=== PATIENT | male | born 1985 | race American Indian/Alaskan Native ===

== ENCOUNTER 2016-11-18 11:47 | Inpatient (IN) | payer OTHER ==
[2016-11-18] MEDS ORDERED: CATAPRES ONE (12:34)
--- NOTE | 2016-11-18 12:41 | Emergency Department Report ---
HPI - General Chief Complaint: Altered Mental Status Time Seen by Provider: 11/18/16 12:25 - HPI HPI: Room 23 The patient is 31-year-old male presenting with a chief complaint of altered mental status. Reportedly the patient's mother called EMS because the patient has been altered since last night. The patient's mother did not accompany him to the ED. The patient appears confused and responds to most questions with "I think.... I think...." Or "no think....." The patient does follow commands easily and is only oriented to his name. The patient does not know the year, the place or why he came to the emergency department. Patient denies pain Location: Mental state Duration: Since last night Quality: Altered Severity: Moderate Modifying factors: [see above] Context: [see above] Mode of transportation: EMS ED Past Medical Hx - Past Medical History Hx Hypertension: Yes Hx Asthma: Yes - Surgical History Past Surgical History?: No Additional Surgical History: denies - Family History Family history: no significant - Social History Smoking Status: Never Smoker Substance Use Type: None (denies illicit drug use) - Medications Home Medications: Home Medications Medication Instructions Recorded Confirmed Last Taken Type Omeprazole [PriLOSEC] 40 mg PO DAILY #20 capsule. 12/23/13 Unknown Rx ED Review of Systems ROS: Stated complaint: ALTERED MENTAL STATUS Other details as noted in HPI Comment: All other systems reviewed and negative Constitutional: denies: chills, fever Eyes: denies: eye pain, eye discharge, vision change ENT: denies: ear pain, throat pain Respiratory: denies: cough, shortness of breath, wheezing Cardiovascular: denies: chest pain, palpitations Endocrine: no symptoms reported Gastrointestinal: denies: abdominal pain, nausea, diarrhea Genitourinary: denies: urgency, dysuria Musculoskeletal: denies: back pain, joint swelling, arthralgia Skin: denies: rash, lesions Neurological: confusion. denies: headache Psychiatric: denies: anxiety, depression Hematological/Lymphatic: denies: easy bleeding, easy bruising Physical Exam - Physical Exam Vital Signs: Vital Signs 11/18/16 11/18/16 11:52 12:25 Temperature 98.6 F Pulse Rate 105 H 105 H Respiratory 20 16 Rate Blood Pressure 161/104 [Right] O2 Sat by Pulse 97 100 Oximetry Physical Exam: GENERAL: The patient is well-developed well-nourished male lying on stretcher not appearing to be in acute distress but appeared confused. [] HEENT: Normocephalic. Atraumatic. Extraocular motions are intact. Patient has moist mucous membranes. NECK: Supple. Trachea midline CHEST/LUNGS: Clear to auscultation. There is no respiratory distress noted. HEART/CARDIOVASCULAR: Regular. There is no tachycardia. There is no gallop rub or murmur. ABDOMEN: Abdomen is soft, nontender. Patient has normal bowel sounds. There is no abdominal distention. SKIN: There is no rash. There is no edema. There is no diaphoresis. NEURO: The patient is awake and alert but only oriented 1 (self). The patient is cooperative. The patient has no focal neurologic deficits. The patient has normal speech. Cranial nerves II through XII grossly intact, no drift. Moves all extremities well MUSCULOSKELETAL: There is no evidence of acute injury. ED Course Vital Signs 11/18/16 11/18/16 11:52 12:25 Temperature 98.6 F Pulse Rate 105 H 105 H Respiratory 20 16 Rate Blood Pressure 161/104 [Right] O2 Sat by Pulse 97 100 Oximetry - Lumbar Puncture Consent Obtained: verbal consent, emergent situation Time Out Performed: Yes Indication for Procedure: fever work up, change in mental status Patient Position: left lateral decubitus Skin Prep: Povidone-Iodine 1% Local Anesthetic Used: Lidocaine 1% Amount of anesthesia used (mls): 3 Spinal Needle Gauge: 20G Spinal Needle Length: 3.5in Interspace Used: L3-L4 Complications: unable to obtain CSF Patient Tolerated Procedure: no complications ED Medical Decision Making - Lab Data Result diagrams: 11/18/16 12:27 11/18/16 12:27 Laboratory Tests 11/18/16 11/18/16 11/18/16 12:21 12:27 12:27 WBC 21.6 H RBC 6.13 H Hgb 16.3 H Hct 47.3 H MCV 77 L MCH 27 L MCHC 35 H RDW 15.4 H Plt Count 191 Add Manual Diff Complete Total Counted 100 Seg Neutrophils % Digital Manager Seg Neuts % (Manual) 83.0 H Band Neutrophils % 2.0 Lymphocytes % (Manual) 11.0 L Reactive Lymphs % (Man) 0 Monocytes % (Manual) 4.0 Eosinophils % (Manual) 0 Basophils % (Manual) 0 Metamyelocytes % 0 Myelocytes % 0 Promyelocytes % 0 Blast Cells % 0 Nucleated RBC % Not Reportable Seg Neutrophils # Man 17.9 H Band Neutrophils # 0.4 Lymphocytes # (Manual) 2.4 Abs React Lymphs (Man) 0.0 Monocytes # (Manual) 0.9 H Eosinophils # (Manual) 0.0 Basophils # (Manual) 0.0 Metamyelocytes # 0.0 Myelocytes # 0.0 Promyelocytes # 0.0 Blast Cells # 0.0 WBC Morphology Not Reportable Hypersegmented Neuts Not Reportable Hyposegmented Neuts Not Reportable Hypogranular Neuts Not Reportable Smudge Cells Not Reportable Toxic Granulation Not Reportable Toxic Vacuolation Not Reportable Dohle Bodies Not Reportable Pelger-Huet Anomaly Not Reportable Josseline Rods Not Reportable Platelet Estimate Not Reportable Clumped Platelets Not Reportable Plt Clumps, EDTA Not Reportable Large Platelets Not Reportable Giant Platelets Not Reportable Platelet Satelliting Not Reportable Plt Morphology Comment Not Reportable RBC Morphology Not Reportable Dimorphic RBCs Not Reportable Polychromasia Not Reportable Hypochromasia Not Reportable Poikilocytosis Not Reportable Anisocytosis Few Microcytosis Not Reportable Macrocytosis Not Reportable Spherocytes Not Reportable Pappenheimer Bodies Not Reportable Sickle Cells Not Reportable Target Cells Not Reportable Tear Drop Cells Not Reportable Ovalocytes Not Reportable Helmet Cells Not Reportable Ibarra-Gananda Bodies Not Reportable Essie Rings Not Reportable Neel Cells Not Reportable Bite Cells Not Reportable Crenated Cell Not Reportable Elliptocytes Not Reportable Acanthocytes (Spur) Not Reportable Rouleaux Not Reportable Hemoglobin C Crystals Not Reportable Schistocytes Not Reportable Malaria parasites Not Reportable Javier Bodies Not Reportable Hem Pathologist Commnt No Sodium 133 L Potassium 3.3 L Chloride 92.2 L Carbon Dioxide 22 Anion Gap 22 BUN 12 Creatinine 1.3 Estimated GFR > 60 BUN/Creatinine Ratio 9.23 Glucose 156 H POC Glucose 128 H Lactic Acid Calcium 9.4 Magnesium 1.3 L Total Bilirubin 1.9 H AST 38 ALT 48 Alkaline Phosphatase 79 Total Creatine Kinase CK-MB (CK-2) CK-MB (CK-2) Rel Index Troponin T Total Protein 8.3 H Albumin 4.0 Albumin/Globulin Ratio 0.9 TSH Free T4 Urine Color Urine Turbidity Urine pH Ur Specific [place] Urine Protein Urine Glucose (UA) Urine Ketones Urine Blood Urine Nitrite Urine Bilirubin Urine Ictotest Urine Urobilinogen Ur Leukocyte Esterase Urine WBC (Auto) Urine RBC (Auto) Urine Bacteria (Auto) Urine Opiates Screen Urine Methadone Screen Acetaminophen Ur Barbiturates Screen Ur Phencyclidine Scrn Ur Amphetamines Screen U Benzodiazepines Scrn Urine Cocaine Screen U Marijuana (THC) Screen Drugs of Abuse Note Plasma/Serum Alcohol 11/18/16 11/18/16 11/18/16 12:27 12:27 12:32 WBC RBC Hgb Hct MCV MCH MCHC RDW Plt Count Add Manual Diff Total Counted Seg Neutrophils % Seg Neuts % (Manual) Band Neutrophils % Lymphocytes % (Manual) Reactive Lymphs % (Man) Monocytes % (Manual) Eosinophils % (Manual) Basophils % (Manual) Metamyelocytes % Myelocytes % Promyelocytes % Blast Cells % Nucleated RBC % Seg Neutrophils # Man Band Neutrophils # Lymphocytes # (Manual) Abs React Lymphs (Man) Monocytes # (Manual) Eosinophils # (Manual) Basophils # (Manual) Metamyelocytes # Myelocytes # Promyelocytes # Blast Cells # WBC Morphology Hypersegmented Neuts Hyposegmented Neuts Hypogranular Neuts Smudge Cells Toxic Granulation Toxic Vacuolation Dohle Bodies Pelger-Huet Anomaly Josseline Rods Platelet Estimate Clumped Platelets Plt Clumps, EDTA Large Platelets Giant Platelets Platelet Satelliting Plt Morphology Comment RBC Morphology Dimorphic RBCs Polychromasia Hypochromasia Poikilocytosis Anisocytosis Microcytosis Macrocytosis Spherocytes Pappenheimer Bodies Sickle Cells Target Cells Tear Drop Cells Ovalocytes Helmet Cells Ibarra-Gananda Bodies Essie Rings Wheeling Cells Bite Cells Crenated Cell Elliptocytes Acanthocytes (Spur) Rouleaux Hemoglobin C Crystals Schistocytes Malaria parasites Javier Bodies Hem Pathologist Commnt Sodium Potassium Chloride Carbon Dioxide Anion Gap BUN Creatinine Estimated GFR BUN/Creatinine Ratio Glucose POC Glucose Lactic Acid 2.3 H* Calcium Magnesium Total Bilirubin AST ALT Alkaline Phosphatase Total Creatine Kinase CK-MB (CK-2) CK-MB (CK-2) Rel Index Troponin T Total Protein Albumin Albumin/Globulin Ratio TSH Free T4 Urine Color Urine Turbidity Urine pH Ur Specific [place] Urine Protein Urine Glucose (UA) Urine Ketones Urine Blood Urine Nitrite Urine Bilirubin Urine Ictotest Urine Urobilinogen Ur Leukocyte Esterase Urine WBC (Auto) Urine RBC (Auto) Urine Bacteria (Auto) Urine Opiates Screen Urine Methadone Screen Acetaminophen < 15.0 Ur Barbiturates Screen Ur Phencyclidine Scrn Ur Amphetamines Screen U Benzodiazepines Scrn Urine Cocaine Screen U Marijuana (THC) Screen Drugs of Abuse Note Plasma/Serum Alcohol < 0.01 11/18/16 11/18/16 11/18/16 12:35 12:35 14:32 WBC RBC Hgb Hct MCV MCH MCHC RDW Plt Count Add Manual Diff Total Counted Seg Neutrophils % Seg Neuts % (Manual) Band Neutrophils % Lymphocytes % (Manual) Reactive Lymphs % (Man) Monocytes % (Manual) Eosinophils % (Manual) Basophils % (Manual) Metamyelocytes % Myelocytes % Promyelocytes % Blast Cells % Nucleated RBC % Seg Neutrophils # Man Band Neutrophils # Lymphocytes # (Manual) Abs React Lymphs (Man) Monocytes # (Manual) Eosinophils # (Manual) Basophils # (Manual) Metamyelocytes # Myelocytes # Promyelocytes # Blast Cells # WBC Morphology Hypersegmented Neuts Hyposegmented Neuts Hypogranular Neuts Smudge Cells Toxic Granulation Toxic Vacuolation Dohle Bodies Pelger-Huet Anomaly Josseline Rods Platelet Estimate Clumped Platelets Plt Clumps, EDTA Large Platelets Giant Platelets Platelet Satelliting Plt Morphology Comment RBC Morphology Dimorphic RBCs Polychromasia Hypochromasia Poikilocytosis Anisocytosis Microcytosis Macrocytosis Spherocytes Pappenheimer Bodies Sickle Cells Target Cells Tear Drop Cells Ovalocytes Helmet Cells Ibarra-Gananda Bodies Essie Rings Neel Cells Bite Cells Crenated Cell Elliptocytes Acanthocytes (Spur) Rouleaux Hemoglobin C Crystals Schistocytes Malaria parasites Javier Bodies Hem Pathologist Commnt Sodium Potassium Chloride Carbon Dioxide Anion Gap BUN Creatinine Estimated GFR BUN/Creatinine Ratio Glucose POC Glucose Lactic Acid Calcium Magnesium Total Bilirubin AST ALT Alkaline Phosphatase Total Creatine Kinase 317 H CK-MB (CK-2) 1.0 CK-MB (CK-2) Rel Index 0.3 Troponin T < 0.010 Total Protein Albumin Albumin/Globulin Ratio TSH 2.470 Free T4 1.29 Urine Color Yellow Urine Turbidity Clear Urine pH 6.0 Ur Specific [place] 1.020 Urine Protein 100 mg/dl Urine Glucose (UA) Neg Urine Ketones 80 Urine Blood Mod Urine Nitrite Neg Urine Bilirubin Neg Urine Ictotest Not Reportable Urine Urobilinogen < 2.0 Ur Leukocyte Esterase Sm Urine WBC (Auto) 10.0 H Urine RBC (Auto) 12.0 Urine Bacteria (Auto) 2+ Urine Opiates Screen Urine Methadone Screen Acetaminophen Ur Barbiturates Screen Ur Phencyclidine Scrn Ur Amphetamines Screen U Benzodiazepines Scrn Urine Cocaine Screen U Marijuana (THC) Screen Drugs of Abuse Note Plasma/Serum Alcohol 11/18/16 14:32 WBC RBC Hgb Hct MCV MCH MCHC RDW Plt Count Add Manual Diff Total Counted Seg Neutrophils % Seg Neuts % (Manual) Band Neutrophils % Lymphocytes % (Manual) Reactive Lymphs % (Man) Monocytes % (Manual) Eosinophils % (Manual) Basophils % (Manual) Metamyelocytes % Myelocytes % Promyelocytes % Blast Cells % Nucleated RBC % Seg Neutrophils # Man Band Neutrophils # Lymphocytes # (Manual) Abs React Lymphs (Man) Monocytes # (Manual) Eosinophils # (Manual) Basophils # (Manual) Metamyelocytes # Myelocytes # Promyelocytes # Blast Cells # WBC Morphology Hypersegmented Neuts Hyposegmented Neuts Hypogranular Neuts Smudge Cells Toxic Granulation Toxic Vacuolation Dohle Bodies Pelger-Huet Anomaly Josseline Rods Platelet Estimate Clumped Platelets Plt Clumps, EDTA Large Platelets Giant Platelets Platelet Satelliting Plt Morphology Comment RBC Morphology Dimorphic RBCs Polychromasia Hypochromasia Poikilocytosis Anisocytosis Microcytosis Macrocytosis Spherocytes Pappenheimer Bodies Sickle Cells Target Cells Tear Drop Cells Ovalocytes Helmet Cells Ibarra-Gananda Bodies Essie Rings Wheeling Cells Bite Cells Crenated Cell Elliptocytes Acanthocytes (Spur) Rouleaux Hemoglobin C Crystals Schistocytes Malaria parasites Javier Bodies Hem Pathologist Commnt Sodium Potassium Chloride Carbon Dioxide Anion Gap BUN Creatinine Estimated GFR BUN/Creatinine Ratio Glucose POC Glucose Lactic Acid Calcium Magnesium Total Bilirubin AST ALT Alkaline Phosphatase Total Creatine Kinase CK-MB (CK-2) CK-MB (CK-2) Rel Index Troponin T Total Protein Albumin Albumin/Globulin Ratio TSH Free T4 Urine Color Urine Turbidity Urine pH Ur Specific [place] Urine Protein Urine Glucose (UA) Urine Ketones Urine Blood Urine Nitrite Urine Bilirubin Urine Ictotest Urine Urobilinogen Ur Leukocyte Esterase Urine WBC (Auto) Urine RBC (Auto) Urine Bacteria (Auto) Urine Opiates Screen Presumptive negative Urine Methadone Screen Presumptive negative Acetaminophen Ur Barbiturates Screen Presumptive negative Ur Phencyclidine Scrn Presumptive negative Ur Amphetamines Screen Presumptive negative U Benzodiazepines Scrn Presumptive negative Urine Cocaine Screen Presumptive negative U Marijuana (THC) Screen Presumptive negative Drugs of Abuse Note Disclamer Plasma/Serum Alcohol - EKG Data -: EKG Interpreted by Me EKG shows normal: sinus rhythm Rate: tachycardia (112 bpm) - EKG Data When compared to previous EKG there are: previous EKG unavailable Interpretation: nonspecific ST-T wave sheila - Differential Diagnosis altered mental status, hypertensive urgency, substance abuse Critical care attestation.: If time is entered above; I have spent that time in minutes in the direct care of this critically ill patient, excluding procedure time. ED Disposition Clinical Impression: Altered mental status, Fever, Leukocytosis Disposition: OP ADMITTED IP TO THIS HOSP Is pt being admited?: Yes Does the pt Need Aspirin: Yes Condition: Serious Referrals: PRIMARY CARE, [Primary Care Provider] - 3-5 Days Time of Disposition: 15:45 (Dr Odonnell notified)
[2016-11-18 12:46] LABS: Hematocrit 47.3 % (35.5-45.6); Hemoglobin 16.3 gm/dl (11.8-15.2); Mean Corpuscular HGB Conc 35 % (32-34); Mean Corpuscular Hemoglobin 27 pg (28-32); Mean Corpuscular Volume 77 fl (84-94); Platelet Count 191 K/mm3 (140-440); Red Blood Count 6.13 M/mm3 (3.65-5.03); Red Cell Distribution Width 15.4 % (13.2-15.2)
[2016-11-18 12:48] LABS: White Blood Count 21.6 K/mm3 (4.5-11.0)
--- NOTE | 2016-11-18 12:49 | Admit Criteria Form ---
Admission Criteria Documentation: MENTAL STATUS CHANGE Clinical Indications for Inpatient Care (Place 'X' for any and all applicable criteria): Ongoing inpatient care may be needed for 1 or more of the following(1)(2)(3)(5)( 6): [X ]I. Suspected serious etiology (eg, medical disorder, TIP LENGTH CHECKER event) of altered mental status [ ]II. Danger to self or others not manageable at lower level of care [ ]III. Grave disability (eg, inability to perform self care necessary at lower level of care) [ ]IV. Agitation or inappropriate behavior interfering with care for primary condition (eg, attempting to discontinue lines or drains prematurely, unable to cooperate with respiratory care) [ ]V. Delirium [A] [D][E] as described by 1 or more of the following(26): [ ]a) Delirium due to alcohol or sedative [F] withdrawal [ ]b) Delirium of uncertain etiology that has not responded to appropriate empiric treatment [ ]c) Delirium that prevents performance of a life-sustaining function (eg, feeding or hydrating oneself) [ ]. General contraindications and/or Inappropriate clinical situations for Observational Care in patients with Mental Status Change, when ANY ONE of the following is required: [ ]a) Prediction of prolongation of LOS based on ANY ONE of the following may be considered as a contraindication for observational care 2, 3, 4, 5, 6, 7, 8, 9, 10, 11 [ ]i) Age > 65 yrs. [ ]ii) Patient arriving by ambulance [ ]iii) Patient with high acuity [ ]iv) Patient requiring vital sign monitoring [ ]v) Patient on IV medication [ ]b) Systolic blood pressures greater than or equal to 180mmHg 3, 12 [ ]c) Patient with altered mental status including delirium and other alteration of consciousness, (3) [ ]d) Patient whose discharge disposition will be to a nursing home home or rehabilitation home should not be managed in Emergency Department Observation Unit. CMS rule requires 3 days hospital stay before such placement.3,13 [ ]e) Patient with failure to thrive due to broad array of etiologies 3,16,17 [ ]f) Inability to ambulate 3,14 Extended stay beyond goal length of stay for the primary condition may be needed until ALL of the following are present(3)(5): [ ]a) Underlying medical etiology of mental status change is absent, or has been established and adequately treated [ ]b) Danger to self or others is absent or manageable at lower level of care. [ ]c) Behavior crisis management, including physical or chemical restraints, is not required or available at lower level of car [ ]d) Substance or alcohol withdrawal is absent or manageable at lower level of care. [ ]e) Behavioral symptoms (eg, agitation, somnolence, inappropriate behavior) are absent, or are manageable at lower level of care. The original [facility] [employer] content created by [facility] [employer] has been revised. The portions of the content which have been revised are identified through the use of italic text or in bold, and [facility] has neither reviewed nor approved the modified material. All other unmodified content is copyright [facility] [employer]. Please see references footnoted in the original [facility] edition 2016 Admission Criteria Met: Yes
[2016-11-18 13:03] LABS: Alanine Aminotransferase 48 units/L (7-56); Albumin/Globulin Ratio 0.9 %; Alkaline Phosphatase 79 units/L (35-129); Anion Gap 22 mmol/L; BUN/Creatinine Ratio 9.23; Bilirubin,Total 1.9 mg/dL (0.1-1.2); Blood Urea Nitrogen 12 mg/dL (9-20); Calcium 9.4 mg/dL (8.4-10.2); Carbon Dioxide 22 mmol/L (22-30); Chloride 92.2 mmol/L (98-107); Glucose 156 mg/dL (75-100); Magnesium 1.3 mg/dL (1.7-2.3); Potassium 3.3 mmol/L (3.6-5.0); Sodium 133 mmol/L (137-145); Total Protein 8.3 g/dL (6.3-8.2)
[2016-11-18 13:03] LABS: Creatine Kinase 317 units/L (55-170)
[2016-11-18] MEDS ORDERED: MAGNESIUM SULFATE 2GM/50ML 2 GM/50 ML BAG IV ONE (13:17)
[2016-11-18 13:48] LABS: Blastocytes % (Manual) 0 %
[2016-11-18 13:49] LABS: Basophils % (Manual) 0 % (0.0-1.8); Eosinophils % (Manual) 0 % (0.0-4.3)
[2016-11-18 13:50] LABS: Anisocytosis Few; Diff Status Complete
--- NOTE | 2016-11-18 13:50 | Cat Scan Report ---
CT HEAD WITHOUT CONTRAST: HISTORY: Altered mental status. Serial contiguous axial images were obtained through the cranium. Intravenous contrast material was not administered. The ventricles are normal in size and appearance. There is no mass effect or midline shift. No areas of abnormally increased or decreased attenuation are seen. No mass lesion is seen. The mastoid air cells and visualized portions of the sinuses are normal. IMPRESSION: Cranial CT scan within normal limits.
[2016-11-18] MEDS ORDERED: NACL 0.9% 1000 ML 1,000 ML IV ONE (14:49)
[2016-11-18] MEDS ORDERED: ROCEPHIN/NS 2 GM/100 ML 2 GM/100 ML BAG IV ONE (14:49)
[2016-11-18] MEDS ORDERED: VERSED IV PRN (14:53)
[2016-11-18 15:00] LABS: Bilirubin,Urine NEG (Negative); Blood,Urine MOD (Negative); Ketones,Urine 80 mg/dL (Negative); Leukocyte Esterase,Urine SM (Negative); Nitrite,Urine NEG (Negative); Urobilinogen,Urine < 2.0 mg/dL (<2.0)
[2016-11-18 15:04] LABS: Urine Drugs of Abuse Note Disclamer
[2016-11-18 15:17] LABS: Bacteria,Urine 2+ /HPF (Negative)
[2016-11-18] MEDS ORDERED: TYLENOL PO ONE (15:42)
--- NOTE | 2016-11-18 23:11 | Event Note ---
Date: 11/18/16 See history and physical in reports. Altered mental status Rule out meningitis ID consult requested
[2016-11-18] MEDS ORDERED: TYLENOL PO PRN (23:12)
--- NOTE | 2016-11-18 23:48 | History and Physical Report ---
CHIEF COMPLAINT: Altered mental status. HISTORY OF PRESENT ILLNESS: A 31-year-old -[place] male doing well until last night, brought in by EMS for severe altered mental status. The patient states yes and I think, but does not give any proper answer. Alert and looking at me and making eye contact, but states yes and trying to answer questions, but not able to answer questions. PAST MEDICAL HISTORY: Significant for hypertension and asthma. PAST SURGICAL HISTORY: None. FAMILY HISTORY: Nothing significant. SOCIAL HISTORY: Does not use any illicit drugs. REVIEW OF SYSTEMS: Significant for fever and altered mental status, alert but not able to answer questions, trying to answer questions. No neck stiffness. Otherwise, 14-point review of systems is otherwise negative. PHYSICAL EXAMINATION: GENERAL: Young male, cooperative during examination. VITAL SIGNS: Temperature was 98, later 101 and 102.1. Pulse is , blood pressure is 141/80, respiratory rate is 21. HEENT: Unremarkable. Pupils equal and reactive. NECK: Supple. No signs of meningitis. LUNGS: Clear to auscultation and percussion. Good air entry. CARDIOVASCULAR: S1, S2 heard. No gallop, no murmur, no rub. Apical impulse in left fifth intercostal space in midclavicular line. ABDOMEN: Soft and benign. No hepatosplenomegaly. No guarding, no rigidity. Hernial orifices are normal. EXTREMITIES: Good pedal pulses. No pedal edema. LABORATORY DATA: White count is 21,600, H and H is 16.3 and 47.3, platelet count is 191,000. Sodium is 133, potassium is 3.3, chloride is 92.2, glucose is 156. Lactic acid is 3.3. Magnesium is 1.3. Total bilirubin is 1.9, total creatinine kinase is , CK-MB is 1.0. Total protein is 8.3. Urine shows ketones of 80, urine WBCs of 10. ASSESSMENT AND PLAN: 1. Altered mental status, probably secondary to meningitis. 2. SIRS syndrome consistent with high lactic acid and high white count with leukocytosis. The patient started on IV Rocephin. ID consult requested, Dr. Karen Barone, his telephone number is [phone] or [phone]. Phone call was not put in because of the time of 11 p.m. ID consult to be called in the morning by the regular hospitalist team. The patient isolated. 3. Meningitis, high possibility. LP was attempted, but could not be done, was unsuccessful. So, no CSF fluid. 4. Hypokalemia, supplemented. 5. Deep venous thrombosis prophylaxis, Lovenox 40 mg subcutaneous daily. JOB# [id number] NIKOLAY/NTS
[2016-11-19] MEDS: ZOSYN/NS 4.5GM/100ML 4.5 GM/100 ML VIAL IV SCH ×3 (00:32→22:32)
[2016-11-19] MEDS: KCL 10MEQ/100ML 10 MEQ/100 ML BAG IV SCH ×5 (00:40→22:03)
[2016-11-19] MEDS: D5NS 1,000 ML IV SCH ×2 (00:41→22:04)
[2016-11-19] MEDS ORDERED: VANCOMYCIN VIAL IV ONE (08:57)
[2016-11-19] MEDS ORDERED: VANCOMYCIN PHARMACY TO DOSE IV SCH (09:00)
[2016-11-19 09:52] LABS: Anion Gap 21 mmol/L; BUN/Creatinine Ratio 8.33; Blood Urea Nitrogen 10 mg/dL (9-20); Calcium 8.8 mg/dL (8.4-10.2); Carbon Dioxide 20 mmol/L (22-30); Chloride 97.9 mmol/L (98-107); Glucose 213 mg/dL (75-100); Potassium 3.2 mmol/L (3.6-5.0); Sodium 136 mmol/L (137-145)
[2016-11-19] MEDS ORDERED: ROCEPHIN/NS 2 GM/100 ML 2 GM/100 ML BAG IV SCH (10:00)
[2016-11-19 10:05] LABS: Basophils % (Auto) 0.2 % (0.0-1.8); Hematocrit 42.4 % (35.5-45.6); Hemoglobin 14.6 gm/dl (11.8-15.2); Mean Corpuscular HGB Conc 34 % (32-34); Mean Corpuscular Hemoglobin 27 pg (28-32); Mean Corpuscular Volume 78 fl (84-94); Platelet Count 171 K/mm3 (140-440); Red Blood Count 5.45 M/mm3 (3.65-5.03); Red Cell Distribution Width 15.3 % (13.2-15.2); White Blood Count 17.1 K/mm3 (4.5-11.0)
[2016-11-19] MEDS ORDERED: VANCOMYCIN VIAL 2,000 MG in NACL 0.9% 500 ML 500 ML IV ONE ×2 (11:00→21:00)
[2016-11-19] MEDS ORDERED: VANCOMYCIN VIAL 2,000 MG in NACL 0.9% 500 ML 500 ML IV SCH (11:00)
--- NOTE | 2016-11-19 16:29 | Progress Note ---
Assessment and Plan Assessment and plan: Altered mental status likely due to meningitis SIRS consistent with high reticulocyte count, high WBC count, and fever Possible bacterial meningitis Hypokalemia DVT prophylaxis - cont IV abx to cover bacterial meningitis - follow ID recommendation - LP pending, replace electrolytes as needed - will get medical records from [place] - DVT Px with lovenox History Interval history: Patient seen and examined. Medical records and medication list reviewed. No acute event overnight noted by the RN. Patient denies any chest pain or difficulty breathing. Patient is tolerating diet. he still appears to be confused, according to his mother whom I discussed by phone he was normally functional about 4 days ago. he had similar episode few years ago at [facility], will get medical records from there. Discussed plan of care at bedside with patient. Hospitalist Physical - Physical exam Narrative exam: GENERAL: obese AAM lying on bed appeared to be in no discomfort. HEENT: Normocephalic. Atraumatic. No conjunctival congestion or icterus. Patient has dry mucous membranes. NECK: Supple. Trachea midline. CHEST/LUNGS: Clear to auscultated bilaterally, breathing nonlabored. No wheezes crackles or rhonchi. HEART/CARDIOVASCULAR: Regular in rate and rhythm. S1 and S2 positive. ABDOMEN: Abdomen is soft, nontender. Patient has normal bowel sounds. SKIN: There is no rash. Warm and dry. NEURO: No focal motor deficit. Follows command. appears confused. MUSCULOSKELETAL: No joint effusion or tenderness. EXTRIMITY: No edema, no cyanosis or clubbing. PSYCH: No agitation. - Constitutional Vitals: Temp Pulse Resp BP Pulse Ox 98 F 111 H 20 138/92 97 11/19/16 11:00 11/19/16 11:00 11/19/16 11:00 11/19/16 11:00 11/19/16 11:00 Results - Labs CBC & Chem 7: 11/19/16 09:22 11/19/16 09:22 Labs: Laboratory Last Values WBC 17.1 K/mm3 (4.5-11.0) H 11/19/16 09:22 RBC 5.45 M/mm3 (3.65-5.03) H 11/19/16 09:22 Hgb 14.6 gm/dl (11.8-15.2) 11/19/16 09:22 Hct 42.4 % (35.5-45.6) 11/19/16 09:22 MCV 78 fl (84-94) L 11/19/16 09:22 MCH 27 pg (28-32) L 11/19/16 09:22 MCHC 34 % (32-34) 11/19/16 09:22 RDW 15.3 % (13.2-15.2) H 11/19/16 09:22 Plt Count 171 K/mm3 (140-440) 11/19/16 09:22 Lymph % (Auto) 5.5 % (13.4-35.0) L 11/19/16 09:22 [place] % (Auto) 5.1 % (0.0-7.3) 11/19/16 09:22 Eos % (Auto) 0.0 % (0.0-4.3) 11/19/16 09:22 Baso % (Auto) 0.2 % (0.0-1.8) 11/19/16 09:22 Lymph # 0.9 K/mm3 (1.2-5.4) L 11/19/16 09:22 [place] # 0.9 K/mm3 (0.0-0.8) H 11/19/16 09:22 Eos # 0.0 K/mm3 (0.0-0.4) 11/19/16 09:22 Baso # 0.0 K/mm3 (0.0-0.1) 11/19/16 09:22 Add Manual Diff Complete 11/18/16 12:27 Total Counted 100 11/18/16 12:27 Seg Neutrophils % 89.2 % (40.0-70.0) H 11/19/16 09:22 Seg Neuts % (Manual) 83.0 % (40.0-70.0) H 11/18/16 12:27 Band Neutrophils % 2.0 % 11/18/16 12:27 Lymphocytes % (Manual) 11.0 % (13.4-35.0) L 11/18/16 12:27 Reactive Lymphs % (Man) 0 % 11/18/16 12:27 Monocytes % (Manual) 4.0 % (0.0-7.3) 11/18/16 12:27 Eosinophils % (Manual) 0 % (0.0-4.3) 11/18/16 12:27 Basophils % (Manual) 0 % (0.0-1.8) 11/18/16 12:27 Metamyelocytes % 0 % 11/18/16 12:27 Myelocytes % 0 % 11/18/16 12:27 Promyelocytes % 0 % 11/18/16 12:27 Blast Cells % 0 % 11/18/16 12:27 Nucleated RBC % Not Reportable 11/18/16 12:27 Seg Neutrophils # 15.3 K/mm3 (1.8-7.7) H 11/19/16 09:22 Seg Neutrophils # Man 17.9 K/mm3 (1.8-7.7) H 11/18/16 12:27 Band Neutrophils # 0.4 K/mm3 11/18/16 12:27 Lymphocytes # (Manual) 2.4 K/mm3 (1.2-5.4) 11/18/16 12:27 Abs React Lymphs (Man) 0.0 K/mm3 11/18/16 12:27 Monocytes # (Manual) 0.9 K/mm3 (0.0-0.8) H 11/18/16 12:27 Eosinophils # (Manual) 0.0 K/mm3 (0.0-0.4) 11/18/16 12:27 Basophils # (Manual) 0.0 K/mm3 (0.0-0.1) 11/18/16 12:27 Metamyelocytes # 0.0 K/mm3 11/18/16 12:27 Myelocytes # 0.0 K/mm3 11/18/16 12:27 Promyelocytes # 0.0 K/mm3 11/18/16 12:27 Blast Cells # 0.0 K/mm3 11/18/16 12:27 WBC Morphology Not Reportable 11/18/16 12:27 Hypersegmented Neuts Not Reportable 11/18/16 12:27 Hyposegmented Neuts Not Reportable 11/18/16 12:27 Hypogranular Neuts Not Reportable 11/18/16 12:27 Smudge Cells Not Reportable 11/18/16 12:27 Toxic Granulation Not Reportable 11/18/16 12:27 Toxic Vacuolation Not Reportable 11/18/16 12:27 Dohle Bodies Not Reportable 11/18/16 12:27 Pelger-Huet Anomaly Not Reportable 11/18/16 12:27 Josseline Rods Not Reportable 11/18/16 12:27 Platelet Estimate Not Reportable 11/18/16 12:27 Clumped Platelets Not Reportable 11/18/16 12:27 Plt Clumps, EDTA Not Reportable 11/18/16 12:27 Large Platelets Not Reportable 11/18/16 12:27 Giant Platelets Not Reportable 11/18/16 12:27 Platelet Satelliting Not Reportable 11/18/16 12:27 Plt Morphology Comment Not Reportable 11/18/16 12:27 RBC Morphology Not Reportable 11/18/16 12:27 Dimorphic RBCs Not Reportable 11/18/16 12:27 Polychromasia Not Reportable 11/18/16 12:27 Hypochromasia Not Reportable 11/18/16 12:27 Poikilocytosis Not Reportable 11/18/16 12:27 Anisocytosis Few 11/18/16 12:27 Microcytosis Not Reportable 11/18/16 12:27 Macrocytosis Not Reportable 11/18/16 12:27 Spherocytes Not Reportable 11/18/16 12:27 Pappenheimer Bodies Not Reportable 11/18/16 12:27 Sickle Cells Not Reportable 11/18/16 12:27 Target Cells Not Reportable 11/18/16 12:27 Tear Drop Cells Not Reportable 11/18/16 12:27 Ovalocytes Not Reportable 11/18/16 12:27 Helmet Cells Not Reportable 11/18/16 12:27 Ibarra-[place] Bodies Not Reportable 11/18/16 12:27 [place] Rings Not Reportable 11/18/16 12:27 [place]el Cells Not Reportable 11/18/16 12:27 Bite Cells Not Reportable 11/18/16 12:27 Crenated Cell Not Reportable 11/18/16 12:27 Elliptocytes Not Reportable 11/18/16 12:27 Acanthocytes (Spur) Not Reportable 11/18/16 12:27 Rouleaux Not Reportable 11/18/16 12:27 Hemoglobin C Crystals Not Reportable 11/18/16 12:27 Schistocytes Not Reportable 11/18/16 12:27 Malaria parasites Not Reportable 11/18/16 12:27 Javier Bodies Not Reportable 11/18/16 12:27 Hem Pathologist Commnt No 11/18/16 12:27 Sodium 136 mmol/L (137-145) L 11/19/16 09:22 Potassium 3.2 mmol/L (3.6-5.0) L 11/19/16 09:22 Chloride 97.9 mmol/L (98-107) L 11/19/16 09:22 Carbon Dioxide 20 mmol/L (22-30) L 11/19/16 09:22 Anion Gap 21 mmol/L 11/19/16 09:22 BUN 10 mg/dL (9-20) 11/19/16 09:22 Creatinine 1.2 mg/dL (0.8-1.5) 11/19/16 09:22 Estimated GFR > 60 ml/min 11/19/16 09:22 BUN/Creatinine Ratio 8.33 % 11/19/16 09:22 Glucose 213 mg/dL (75-100) H 11/19/16 09:22 POC Glucose 128 (70-105) H 11/18/16 12:21 Lactic Acid 3.3 mmol/L (0.7-2.0) H* 11/18/16 15:02 Calcium 8.8 mg/dL (8.4-10.2) 11/19/16 09:22 Magnesium 1.3 mg/dL (1.7-2.3) L 11/18/16 12:27 Total Bilirubin 1.9 mg/dL (0.1-1.2) H 11/18/16 12:27 AST 38 units/L (5-40) 11/18/16 12:27 ALT 48 units/L (7-56) 11/18/16 12:27 Alkaline Phosphatase 79 units/L (35-129) 11/18/16 12:27 Total Creatine Kinase 317 units/L (55-170) H 11/18/16 12:35 CK-MB (CK-2) 1.0 ng/mL (0.0-4.0) 11/18/16 12:35 CK-MB (CK-2) Rel Index 0.3 (0-4) 11/18/16 12:35 Troponin T < 0.010 ng/mL (0.00-0.029) 11/18/16 12:35 Total Protein 8.3 g/dL (6.3-8.2) H 11/18/16 12:27 Albumin 4.0 g/dL (3.9-5) 11/18/16 12:27 Albumin/Globulin Ratio 0.9 % 11/18/16 12:27 TSH 2.470 mlU/mL (0.270-4.200) 11/18/16 12:35 Free T4 1.29 ng/dL (0.76-1.46) 11/18/16 12:35 Urine Color Yellow (Yellow) 11/18/16 14:32 Urine Turbidity Clear (Clear) 11/18/16 14:32 Urine pH 6.0 (5.0-7.0) 11/18/16 14:32 Ur Specific [place] 1.020 (1.003-1.030) 11/18/16 14:32 Urine Protein 100 mg/dl mg/dL (Negative) 11/18/16 14:32 Urine Glucose (UA) Neg mg/dL (Negative) 11/18/16 14:32 Urine Ketones 80 mg/dL (Negative) 11/18/16 14:32 Urine Blood Mod (Negative) 11/18/16 14:32 Urine Nitrite Neg (Negative) 11/18/16 14:32 Urine Bilirubin Neg (Negative) 11/18/16 14:32 Urine Ictotest Not Reportable 11/18/16 14:32 Urine Urobilinogen < 2.0 mg/dL (<2.0) 11/18/16 14:32 Ur Leukocyte Esterase Sm (Negative) 11/18/16 14:32 Urine WBC (Auto) 10.0 /HPF (0.0-6.0) H 11/18/16 14:32 Urine RBC (Auto) 12.0 /HPF (0.0-6.0) 11/18/16 14:32 Urine Bacteria (Auto) 2+ /HPF (Negative) 11/18/16 14:32 Urine Opiates Screen Presumptive negative 11/18/16 14:32 Urine Methadone Screen Presumptive negative 11/18/16 14:32 Acetaminophen < 15.0 ug/mL (10.0-30.0) 11/18/16 12:32 Ur Barbiturates Screen Presumptive negative 11/18/16 14:32 Ur Phencyclidine Scrn Presumptive negative 11/18/16 14:32 Ur Amphetamines Screen Presumptive negative 11/18/16 14:32 U Benzodiazepines Scrn Presumptive negative 11/18/16 14:32 Urine Cocaine Screen Presumptive negative 11/18/16 14:32 U Marijuana (THC) Screen Presumptive negative 11/18/16 14:32 Drugs of Abuse Note Disclamer 11/18/16 14:32 Plasma/Serum Alcohol < 0.01 gm% (0-0.07) 11/18/16 12:27 - Imaging and Cardiology Chest x-ray: report reviewed CT Scan - head: report reviewed
--- NOTE | 2016-11-19 20:51 | Consultation ---
History of Present Illness - Reason for Consult Consult date: 11/19/16 fever. Altered mental status Requesting physician: ASHLEY WILLIAMSON - History of Present Illness he patient is 31-year-old male presenting with a chief complaint of altered mental status. Reportedly the patient's mother called EMS because the patient has been altered since last night. The patient's mother did not accompany him to the ED. The patient appears confused and responds to most questions with "I think.... I think...." Or "no think....." The patient does follow commands easily and is only oriented to his name. The patient does not know the year, the place or why he came to the emergency department. Patient denies pain. Infectious disease consulted because of concern for meningitis. Patient seen at bedside. He is unable to provide history. Denied headache or pain. Also denied cough. MENTAL STATE - Seems mentally challenged. Speech limited PHYSICAL EXAM VS - tmax 102.6 Nect - supple. chest - good air entry abd - bs+ extremities - left leg swelling, redness and warm LABS - Reviewed. See lab section. ASSESSMENT 1. Sepsis 2. Leg cellulitis 3. OBESITY Recommendation 1. Meningits unlikely. D/C isolation 2. chest xray. 3. blood culture x2 4. d/c ceftriaxone and start zosyn. 5. esr/crp. Medications and Allergies Allergies Allergy/AdvReac Type Severity Reaction Status Date / Time No Known Allergies Allergy Unverified 12/23/13 09:40 Home Medications Medication Instructions Recorded Confirmed Last Taken Type Unobtainable 11/18/16 11/18/16 Unknown History Active Meds: Active Medications Acetaminophen (Tylenol) 650 mg PO Q4H PRN PRN Reason: Fever Enoxaparin Sodium (Lovenox) 40 mg SUB-Q QDAY@2200 AYANNA Ceftriaxone Sodium (Rocephin/Ns 2 Gm/100 Ml) 2 gm in 100 mls @ 200 mls/hr IV Q24HR AYANNA PRN Reason: Protocol Last Admin: 11/19/16 10:30 Dose: 200 mls/hr Dextrose/Sodium Chloride (D5ns) 1,000 mls @ 75 mls/hr IV DIRECT AYANNA Last Admin: 11/19/16 00:41 Dose: 75 mls/hr Vancomycin HCl 2,000 mg/ (Sodium Chloride) 500 mls @ 250 mls/hr IV ONCE AYANNA Vancomycin HCl 1,250 mg/ (Sodium Chloride) 250 mls @ 167 mls/hr IV Q8H AYANNA Midazolam HCl (Versed) 5 mg IV ONCE PRN PRN Reason: Agitation Vancomycin HCl (Vancomycin Pharmacy To Dose) 1 each IV PKCONSULT AYANNA PRN Reason: Protocol Physical Examination - Constitutional Vitals: Vital Signs Temp Pulse Resp BP Pulse Ox 99 F 107 H 20 140/76 96 11/19/16 20:04 11/19/16 20:04 11/19/16 20:04 11/19/16 20:04 11/19/16 20:04 Temperature -Last 24 Hours Temperature 99 F Temperature 98 F Temperature 98 F Temperature 99.0 F Temperature 98.5 F Temperature 102.1 F Results - Labs CBC & Chem 7: 11/19/16 09:22 11/19/16 09:22 Labs: Abnormal lab results 11/19/16 11/19/16 Range/Units 09:22 09:22 WBC 17.1 H (4.5-11.0) K/mm3 RBC 5.45 H (3.65-5.03) M/mm3 MCV 78 L (84-94) fl MCH 27 L (28-32) pg RDW 15.3 H (13.2-15.2) % Lymph % (Auto) 5.5 L (13.4-35.0) % Lymph # 0.9 L (1.2-5.4) K/mm3 [place] # 0.9 H (0.0-0.8) K/mm3 Seg Neutrophils % 89.2 H (40.0-70.0) % Seg Neutrophils # 15.3 H (1.8-7.7) K/mm3 Sodium 136 L (137-145) mmol/L Potassium 3.2 L (3.6-5.0) mmol/L Chloride 97.9 L (98-107) mmol/L Carbon Dioxide 20 L (22-30) mmol/L Glucose 213 H (75-100) mg/dL
[2016-11-19] MEDS: LOVENOX SUB-Q SCH (22:01)
[2016-11-19] MEDS: VANCOMYCIN VIAL 1,250 MG in NACL 0.9% 250ML 250 ML IV SCH (22:02)
[2016-11-20] MEDS: VANCOMYCIN VIAL 1,250 MG in NACL 0.9% 250ML 250 ML IV SCH ×3 (03:11→20:27)
[2016-11-20] MEDS: ZOSYN/NS 4.5GM/100ML 4.5 GM/100 ML VIAL IV SCH ×3 (05:37→22:24)
--- NOTE | 2016-11-20 09:50 | XRay Report ---
AP CHEST: HISTORY: Cough, pneumonia AP view of the chest demonstrates a normal mediastinal and cardiac contour with clear lungs and normal bony and soft tissue structures. IMPRESSION: Unremarkable AP chest.
--- NOTE | 2016-11-20 15:11 | Progress Note ---
Assessment and Plan Assessment and plan: Altered mental status likely due to sepsis Sepsis likely due to left lower extremity cellulitis (consistent with high reticulocyte count, high WBC count, and fever) Possible bacterial meningitis, ruled out by ID Left lower extremity cellulitis Hypokalemia DVT prophylaxis - cont IV abx to cover for cellulitis - follow up farther ID recommendation for antibiotic duration - replace electrolytes as needed - will get medical records from [place] as he had similar episode of confusion about 4 years ago - DVT Px with lovenox History Interval history: Patient seen and examined. Medical records and medication list reviewed. No acute event overnight noted by the RN. Patient denies any chest pain or difficulty breathing. Patient is tolerating diet. He appeared much alert and oriented today, denies any confusion Discussed plan of care at bedside with patient. Hospitalist Physical - Physical exam Narrative exam: GENERAL: obese AAM lying on bed appeared to be in no discomfort. HEENT: Normocephalic. Atraumatic. No conjunctival congestion or icterus. Patient has dry mucous membranes. NECK: Supple. Trachea midline. CHEST/LUNGS: Clear to auscultated bilaterally, breathing nonlabored. No wheezes crackles or rhonchi. HEART/CARDIOVASCULAR: Regular in rate and rhythm. S1 and S2 positive. ABDOMEN: Abdomen is soft, nontender. Patient has normal bowel sounds. SKIN: There is no rash. Warm and dry. NEURO: No focal motor deficit. Follows command. Alert and oriented to time place and person. MUSCULOSKELETAL: No joint effusion or tenderness. EXTRIMITY: No edema, no cyanosis or clubbing. PSYCH: No agitation, cooperative. - Constitutional Vitals: Temp Pulse Resp BP Pulse Ox 97.8 F 99 H 20 147/92 96 11/20/16 08:07 11/20/16 08:23 11/20/16 08:07 11/20/16 08:07 11/20/16 08:07 Results - Labs CBC & Chem 7: 11/19/16 09:22 11/19/16 09:22 Labs: Laboratory Last Values WBC 17.1 K/mm3 (4.5-11.0) H 11/19/16 09:22 RBC 5.45 M/mm3 (3.65-5.03) H 11/19/16 09:22 Hgb 14.6 gm/dl (11.8-15.2) 11/19/16 09:22 Hct 42.4 % (35.5-45.6) 11/19/16 09:22 MCV 78 fl (84-94) L 11/19/16 09:22 MCH 27 pg (28-32) L 11/19/16 09:22 MCHC 34 % (32-34) 11/19/16 09:22 RDW 15.3 % (13.2-15.2) H 11/19/16 09:22 Plt Count 171 K/mm3 (140-440) 11/19/16 09:22 Lymph % (Auto) 5.5 % (13.4-35.0) L 11/19/16 09:22 [place] % (Auto) 5.1 % (0.0-7.3) 11/19/16 09:22 Eos % (Auto) 0.0 % (0.0-4.3) 11/19/16 09:22 Baso % (Auto) 0.2 % (0.0-1.8) 11/19/16 09:22 Lymph # 0.9 K/mm3 (1.2-5.4) L 11/19/16 09:22 [place] # 0.9 K/mm3 (0.0-0.8) H 11/19/16 09:22 Eos # 0.0 K/mm3 (0.0-0.4) 11/19/16 09:22 Baso # 0.0 K/mm3 (0.0-0.1) 11/19/16 09:22 Add Manual Diff Complete 11/18/16 12:27 Total Counted 100 11/18/16 12:27 Seg Neutrophils % 89.2 % (40.0-70.0) H 11/19/16 09:22 Seg Neuts % (Manual) 83.0 % (40.0-70.0) H 11/18/16 12:27 Band Neutrophils % 2.0 % 11/18/16 12:27 Lymphocytes % (Manual) 11.0 % (13.4-35.0) L 11/18/16 12:27 Reactive Lymphs % (Man) 0 % 11/18/16 12:27 Monocytes % (Manual) 4.0 % (0.0-7.3) 11/18/16 12:27 Eosinophils % (Manual) 0 % (0.0-4.3) 11/18/16 12:27 Basophils % (Manual) 0 % (0.0-1.8) 11/18/16 12:27 Metamyelocytes % 0 % 11/18/16 12:27 Myelocytes % 0 % 11/18/16 12:27 Promyelocytes % 0 % 11/18/16 12:27 Blast Cells % 0 % 11/18/16 12:27 Nucleated RBC % Not Reportable 11/18/16 12:27 Seg Neutrophils # 15.3 K/mm3 (1.8-7.7) H 11/19/16 09:22 Seg Neutrophils # Man 17.9 K/mm3 (1.8-7.7) H 11/18/16 12:27 Band Neutrophils # 0.4 K/mm3 11/18/16 12:27 Lymphocytes # (Manual) 2.4 K/mm3 (1.2-5.4) 11/18/16 12:27 Abs React Lymphs (Man) 0.0 K/mm3 11/18/16 12:27 Monocytes # (Manual) 0.9 K/mm3 (0.0-0.8) H 11/18/16 12:27 Eosinophils # (Manual) 0.0 K/mm3 (0.0-0.4) 11/18/16 12:27 Basophils # (Manual) 0.0 K/mm3 (0.0-0.1) 11/18/16 12:27 Metamyelocytes # 0.0 K/mm3 11/18/16 12:27 Myelocytes # 0.0 K/mm3 11/18/16 12:27 Promyelocytes # 0.0 K/mm3 11/18/16 12:27 Blast Cells # 0.0 K/mm3 11/18/16 12:27 WBC Morphology Not Reportable 11/18/16 12:27 Hypersegmented Neuts Not Reportable 11/18/16 12:27 Hyposegmented Neuts Not Reportable 11/18/16 12:27 Hypogranular Neuts Not Reportable 11/18/16 12:27 Smudge Cells Not Reportable 11/18/16 12:27 Toxic Granulation Not Reportable 11/18/16 12:27 Toxic Vacuolation Not Reportable 11/18/16 12:27 Dohle Bodies Not Reportable 11/18/16 12:27 Pelger-Huet Anomaly Not Reportable 11/18/16 12:27 Josseline Rods Not Reportable 11/18/16 12:27 Platelet Estimate Not Reportable 11/18/16 12:27 Clumped Platelets Not Reportable 11/18/16 12:27 Plt Clumps, EDTA Not Reportable 11/18/16 12:27 Large Platelets Not Reportable 11/18/16 12:27 Giant Platelets Not Reportable 11/18/16 12:27 Platelet Satelliting Not Reportable 11/18/16 12:27 Plt Morphology Comment Not Reportable 11/18/16 12:27 RBC Morphology Not Reportable 11/18/16 12:27 Dimorphic RBCs Not Reportable 11/18/16 12:27 Polychromasia Not Reportable 11/18/16 12:27 Hypochromasia Not Reportable 11/18/16 12:27 Poikilocytosis Not Reportable 11/18/16 12:27 Anisocytosis Few 11/18/16 12:27 Microcytosis Not Reportable 11/18/16 12:27 Macrocytosis Not Reportable 11/18/16 12:27 Spherocytes Not Reportable 11/18/16 12:27 Pappenheimer Bodies Not Reportable 11/18/16 12:27 Sickle Cells Not Reportable 11/18/16 12:27 Target Cells Not Reportable 11/18/16 12:27 Tear Drop Cells Not Reportable 11/18/16 12:27 Ovalocytes Not Reportable 11/18/16 12:27 Helmet Cells Not Reportable 11/18/16 12:27 Ibarra-[place] Bodies Not Reportable 11/18/16 12:27 [place] Rings Not Reportable 11/18/16 12:27 [place] Cells Not Reportable 11/18/16 12:27 Bite Cells Not Reportable 11/18/16 12:27 Crenated Cell Not Reportable 11/18/16 12:27 Elliptocytes Not Reportable 11/18/16 12:27 Acanthocytes (Spur) Not Reportable 11/18/16 12:27 Rouleaux Not Reportable 11/18/16 12:27 Hemoglobin C Crystals Not Reportable 11/18/16 12:27 Schistocytes Not Reportable 11/18/16 12:27 Malaria parasites Not Reportable 11/18/16 12:27 ESR 75 mm/Hr (0-20) 11/19/16 21:00 Javier Bodies Not Reportable 11/18/16 12:27 Hem Pathologist Commnt No 11/18/16 12:27 Sodium 136 mmol/L (137-145) L 11/19/16 09:22 Potassium 3.2 mmol/L (3.6-5.0) L 11/19/16 09:22 Chloride 97.9 mmol/L (98-107) L 11/19/16 09:22 Carbon Dioxide 20 mmol/L (22-30) L 11/19/16 09:22 Anion Gap 21 mmol/L 11/19/16 09:22 BUN 10 mg/dL (9-20) 11/19/16 09:22 Creatinine 1.2 mg/dL (0.8-1.5) 11/19/16 09:22 Estimated GFR > 60 ml/min 11/19/16 09:22 BUN/Creatinine Ratio 8.33 % 11/19/16 09:22 Glucose 213 mg/dL (75-100) H 11/19/16 09:22 POC Glucose 128 (70-105) H 11/18/16 12:21 Lactic Acid 3.3 mmol/L (0.7-2.0) H* 11/18/16 15:02 Calcium 8.8 mg/dL (8.4-10.2) 11/19/16 09:22 Magnesium 1.3 mg/dL (1.7-2.3) L 11/18/16 12:27 Total Bilirubin 1.9 mg/dL (0.1-1.2) H 11/18/16 12:27 AST 38 units/L (5-40) 11/18/16 12:27 ALT 48 units/L (7-56) 11/18/16 12:27 Alkaline Phosphatase 79 units/L (35-129) 11/18/16 12:27 Total Creatine Kinase 317 units/L (55-170) H 11/18/16 12:35 CK-MB (CK-2) 1.0 ng/mL (0.0-4.0) 11/18/16 12:35 CK-MB (CK-2) Rel Index 0.3 (0-4) 11/18/16 12:35 Troponin T < 0.010 ng/mL (0.00-0.029) 11/18/16 12:35 C-Reactive Protein 17.10 mg/dL (0.00-1.30) H 11/19/16 21:00 Total Protein 8.3 g/dL (6.3-8.2) H 11/18/16 12:27 Albumin 4.0 g/dL (3.9-5) 11/18/16 12:27 Albumin/Globulin Ratio 0.9 % 11/18/16 12:27 TSH 2.470 mlU/mL (0.270-4.200) 11/18/16 12:35 Free T4 1.29 ng/dL (0.76-1.46) 11/18/16 12:35 Urine Color Yellow (Yellow) 11/18/16 14:32 Urine Turbidity Clear (Clear) 11/18/16 14:32 Urine pH 6.0 (5.0-7.0) 11/18/16 14:32 Ur Specific [place] 1.020 (1.003-1.030) 11/18/16 14:32 Urine Protein 100 mg/dl mg/dL (Negative) 11/18/16 14:32 Urine Glucose (UA) Neg mg/dL (Negative) 11/18/16 14:32 Urine Ketones 80 mg/dL (Negative) 11/18/16 14:32 Urine Blood Mod (Negative) 11/18/16 14:32 Urine Nitrite Neg (Negative) 11/18/16 14:32 Urine Bilirubin Neg (Negative) 11/18/16 14:32 Urine Ictotest Not Reportable 11/18/16 14:32 Urine Urobilinogen < 2.0 mg/dL (<2.0) 11/18/16 14:32 Ur Leukocyte Esterase Sm (Negative) 11/18/16 14:32 Urine WBC (Auto) 10.0 /HPF (0.0-6.0) H 11/18/16 14:32 Urine RBC (Auto) 12.0 /HPF (0.0-6.0) 11/18/16 14:32 Urine Bacteria (Auto) 2+ /HPF (Negative) 11/18/16 14:32 Urine Opiates Screen Presumptive negative 11/18/16 14:32 Urine Methadone Screen Presumptive negative 11/18/16 14:32 Acetaminophen < 15.0 ug/mL (10.0-30.0) 11/18/16 12:32 Ur Barbiturates Screen Presumptive negative 11/18/16 14:32 Ur Phencyclidine Scrn Presumptive negative 11/18/16 14:32 Ur Amphetamines Screen Presumptive negative 11/18/16 14:32 U Benzodiazepines Scrn Presumptive negative 11/18/16 14:32 Urine Cocaine Screen Presumptive negative 11/18/16 14:32 U Marijuana (THC) Screen Presumptive negative 11/18/16 14:32 Drugs of Abuse Note Disclamer 11/18/16 14:32 Plasma/Serum Alcohol < 0.01 gm% (0-0.07) 11/18/16 12:27
--- NOTE | 2016-11-20 18:53 | Progress Note ---
Subjective Date of service: 11/20/16 Principal diagnosis: sepsis Interval history: No complaints today. PHYSICAL EXAM VS - afebrile Nect - supple. chest - good air entry abd - bs+ extremities - left leg swelling, redness and warm LABS - Reviewed. See lab section. esr 75 crp 17.1 ASSESSMENT 1. Sepsis 2. Leg cellulitis 3. OBESITY Recommendation 1. Meningits unlikely. D/C isolation 2. continue iv abx 3. elevate left leg 4. d/c plan for LP Objective - Constitutional Vitals: Vital Signs Temp Pulse Resp BP Pulse Ox 100 F H 104 H 20 133/70 97 11/20/16 16:15 11/20/16 16:15 11/20/16 16:15 11/20/16 16:15 11/20/16 16:15 Temperature -Last 24 Hours Temperature 100 F Temperature 98.9 F Temperature 97.8 F Temperature 98.2 F Temperature 97.8 F Temperature 99 F - Labs CBC & Chem 7: 11/19/16 09:22 11/19/16 09:22 Labs: Abnormal lab results 11/19/16 Range/Units 21:00 C-Reactive Protein 17.10 H (0.00-1.30) mg/dL
[2016-11-20] MEDS: D5NS 1,000 ML IV SCH (20:28)
[2016-11-20] MEDS: LOVENOX SUB-Q SCH (22:27)
[2016-11-21] MEDS: VANCOMYCIN VIAL 1,250 MG in NACL 0.9% 250ML 250 ML IV SCH ×2 (04:37→15:05)
[2016-11-21] MEDS: ZOSYN/NS 4.5GM/100ML 4.5 GM/100 ML VIAL IV SCH ×2 (06:28→15:20)
--- NOTE | 2016-11-21 10:32 | Consultation ---
History of Present Illness Consult date: 11/21/16 Requesting physician: ASHLEY WILLIAMSON Reason for Consult: altered mental status Chief complaint: left leg swelling, confusion History of present illness: 31 YO M presented on 11/18 w/ confusion and LLE swelling/heat. Sx were constant but waxing and waning and have gradually improved through admission to essential resolution today. There are no clear aggravating, relieving or temporal factors. Severity was such to cause his mother concern. Past History Past Medical History: No medical history Past Surgical History: No surgical history Social history: single, lives with family. denies: smoking, alcohol abuse, prescription drug abuse, IV drug use Family history: hypertension Medications and Allergies Allergies Allergy/AdvReac Type Severity Reaction Status Date / Time No Known Allergies Allergy Unverified 12/23/13 09:40 Home Medications Medication Instructions Recorded Confirmed Last Taken Type Unobtainable 11/18/16 11/18/16 Unknown History Active Meds: Active Medications Acetaminophen (Tylenol) 650 mg PO Q4H PRN PRN Reason: Fever Last Admin: 11/20/16 05:36 Dose: 650 mg Enoxaparin Sodium (Lovenox) 40 mg SUB-Q QDAY@2200 [facility] Last Admin: 11/20/16 22:27 Dose: 40 mg Dextrose/Sodium Chloride (D5ns) 1,000 mls @ 75 mls/hr IV DIRECT [facility] Last Admin: 11/20/16 20:28 Dose: 75 mls/hr Vancomycin HCl 1,250 mg/ (Sodium Chloride) 250 mls @ 167 mls/hr IV Q8H [facility] Last Admin: 11/21/16 04:37 Dose: 167 mls/hr Piperacillin Sod/Tazobactam Sod (Zosyn/Ns 4.5gm/100ml) 4.5 gm in 100 mls @ 200 mls/hr IV Q8HR [facility] PRN Reason: Protocol Stop: 11/25/16 23:59 Last Admin: 11/21/16 06:28 Dose: 200 mls/hr Midazolam HCl (Versed) 5 mg IV ONCE PRN PRN Reason: Agitation Vancomycin HCl (Vancomycin Pharmacy To Dose) 1 each IV PKCONSULT AYANNA PRN Reason: Protocol Review of Systems All systems: negative Constitutional: fever, fatigue, weakness, malaise, lethargy Integumentary: redness Neurological: weakness, change in mentation, confusion, gait dysfunction, no head injury, no paralysis, no parathesias, no numbness, no tingling, no seizures , no syncope, no ataxia, no lack of coordination, no headaches, no migraines, no convulsions, no memory loss, no balance difficulties, no motor disturbance, no sensory deficit, no double vision, no loss of vision, no paralysis Physical Examination - Vital Signs Vital Signs: Vital Signs Temp Pulse Resp BP Pulse Ox 98.6 F 105 H 20 161/104 97 11/18/16 11:52 11/18/16 11:52 11/18/16 11:52 11/18/16 11:52 11/18/16 11:52 - Constitutional General appearance: comfortable - EENT EENT: Present: ATNC, PERRL, mucous membranes moist, hearing intact, vision intact - Respiratory Respiratory: Present: chest non-tender, normal breath sounds, no respiratory distress - Cardiovascular Cardiovascular: Present: regular rate Extremities: Present: no clubbing, cyanosis, no ischemia or petechiae, other ( LLE swelling/pain/redness/heat) - Gastrointestinal Gastrointestinal: Present: normoactive bowel sounds, soft, non-distended - Integumentary Integumentary: Present: erythema (LLE), cellulitis (LLE ) - Neurologic Cranial nerve examination: PERRL, EOMI, VFF, V1/V2/V3 grossly intact, face symmetric, tongue midline, intact, intact shoulder shrug, intact cough reflex, Intact Vestibulo-ocular r, intact corneal reflex, normal palatal elevation Speech examination: intact Sensorimotor examination: intact Motor examination - right side: 5/5: biceps, triceps, wrist flexion, wrist extension, rock splitter, hip flexors, knee extensors, dorsiflexion, toe extension (EHL) , plantarflexion Motor examination - left side: 5/5: biceps, triceps, wrist flexion, wrist extension, rock splitter, hip flexors, knee extensors, dorsiflexion, toe extension (EHL) , plantarflexion Detailed sensory examination: intact, light touch, temperature Reflex and gait examination: intact Reflexes: 2+: ankle, bicep, knee, tricep - Musculoskeletal Musculoskeletal: Present: fluid collection (L leg), no fluid collection, no pain , normal range of motion - Psychiatric Psychiatric: Present: mood/affect appropriate, cooperative Results - Laboratory Findings CBC and BMP: 11/19/16 09:22 11/19/16 09:22 Abnormal Lab Findings: Abnormal Labs 11/19/16 11/19/16 11/19/16 09:22 09:22 21:00 WBC 17.1 H RBC 5.45 H MCV 78 L MCH 27 L RDW 15.3 H Lymph % (Auto) 5.5 L Lymph # 0.9 L [place] # 0.9 H Seg Neutrophils % 89.2 H Seg Neutrophils # 15.3 H Sodium 136 L Potassium 3.2 L Chloride 97.9 L Carbon Dioxide 20 L Glucose 213 H C-Reactive Protein 17.10 H Assessment and Plan 31 YO M p/w AMS and LLE swelling/pain/redness/heat found to have cellulitis w/ sepsis. AMS has improved w/ IV Abx for cellulitis. Pt has intact symmetric neurologic exam w/o deficits. I suspect pt has resolving toxic metabolic infectious derangement as the etiology for neurologic decompensation. 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 Stroke, Seizure or Meningitis. CTH neg. TSH neg. Recommendations: 1. Will defer further neurologic w/u w/ regard to radiographic imaging-MRI Brain/Spine, EEG or LP @ this time. CTH reviewed and non-acute findings. 2. Check serum Vit B12/Ammonia and correct as necessary 3. Cont Infectious work up/medical management for UTI, PNA, cellulitis, bacteremia, etc. 4. Avoid hyponatremia, hypo/hyper-calcemia, hypo/hyperglycemia, acidosis, hypoxia/hypoxemia, hypercarbia/hypercapnia 5. Avoid institution of any psychoactive medications (e.g. antihistamines, anticholinergics, BZD, hypnotics, opiates) as able unless low doses of low potency antipsychotic needed for behavioral issues complicating medical care 6. We can revisit as needed.
[2016-11-21 10:41] LABS: Anion Gap 17 mmol/L; Blood Urea Nitrogen 7 mg/dL (9-20); Calcium 8.9 mg/dL (8.4-10.2); Carbon Dioxide 25 mmol/L (22-30); Chloride 99.5 mmol/L (98-107); Glucose 211 mg/dL (75-100); Potassium 3.6 mmol/L (3.6-5.0); Sodium 138 mmol/L (137-145)
[2016-11-21 10:43] LABS: Basophils % (Auto) 0.3 % (0.0-1.8); Eosinophils % (Auto) 0.8 % (0.0-4.3); Hematocrit 36.9 % (35.5-45.6); Hemoglobin 12.4 gm/dl (11.8-15.2); Mean Corpuscular HGB Conc 34 % (32-34); Mean Corpuscular Hemoglobin 27 pg (28-32); Mean Corpuscular Volume 80 fl (84-94); Platelet Count 206 K/mm3 (140-440); Red Blood Count 4.64 M/mm3 (3.65-5.03); Red Cell Distribution Width 15.3 % (13.2-15.2); White Blood Count 11.6 K/mm3 (4.5-11.0)
[2016-11-21] MEDS: D5NS 1,000 ML IV SCH (15:19)
--- NOTE | 2016-11-21 16:02 | Progress Note ---
Assessment and Plan Assessment and plan: patient is 31-year-old male presenting with a chief complaint of altered mental status, fever, elevated white count and LLE swelling. Altered mental status/toxic encephalopathy likely due to sepsis, resolved Sepsis likely due to left lower extremity cellulitis (consistent with high reticulocyte count, high WBC count, and fever) Possible bacterial meningitis, ruled out by ID Left lower extremity cellulitis Hypokalemia DVT prophylaxis - cont IV abx to cover for cellulitis - blood cx negative - ID recommended MRI and venous doppler of the LLE afor persistant swelling and fever - replace electrolytes as needed - will get medical records from [place] as he had similar episode of confusion about 4 years ago - DVT Px with lovenox History Interval history: Patient seen and examined. Medical records and medication list reviewed. No acute event overnight noted by the RN. Patient denies any chest pain or difficulty breathing. Patient is tolerating diet. He appeared much alert and oriented now, denies any confusion continue to spike low grade fever and unable to put wt on left leg Discussed plan of care at bedside with patient. Hospitalist Physical - Physical exam Narrative exam: GENERAL: obese AAM lying on bed appeared to be in no discomfort. HEENT: Normocephalic. Atraumatic. No conjunctival congestion or icterus. Patient has dry mucous membranes. NECK: Supple. Trachea midline. CHEST/LUNGS: Clear to auscultated bilaterally, breathing nonlabored. No wheezes crackles or rhonchi. HEART/CARDIOVASCULAR: Regular in rate and rhythm. S1 and S2 positive. ABDOMEN: Abdomen is soft, nontender. Patient has normal bowel sounds. SKIN: There is no rash. Warm and dry. NEURO: No focal motor deficit. Follows command. Alert and oriented to time place and person. MUSCULOSKELETAL: left ankle restricted movement EXTRIMITY: no cyanosis or clubbing. left leg swelling and tenderness PSYCH: No agitation, cooperative. - Constitutional Vitals: Temp Pulse Resp BP Pulse Ox 100.5 F H 101 H 20 158/100 97 11/21/16 13:29 11/21/16 13:29 11/21/16 13:29 11/21/16 13:29 11/21/16 04:00 Results - Labs CBC & Chem 7: 11/21/16 09:52 11/21/16 09:52 Labs: Laboratory Last Values WBC 11.6 K/mm3 (4.5-11.0) H 11/21/16 09:52 RBC 4.64 M/mm3 (3.65-5.03) 11/21/16 09:52 Hgb 12.4 gm/dl (11.8-15.2) 11/21/16 09:52 Hct 36.9 % (35.5-45.6) 11/21/16 09:52 MCV 80 fl (84-94) L 11/21/16 09:52 MCH 27 pg (28-32) L 11/21/16 09:52 MCHC 34 % (32-34) 11/21/16 09:52 RDW 15.3 % (13.2-15.2) H 11/21/16 09:52 Plt Count 206 K/mm3 (140-440) 11/21/16 09:52 Lymph % (Auto) 11.3 % (13.4-35.0) L 11/21/16 09:52 Esmeralda % (Auto) 10.0 % (0.0-7.3) H 11/21/16 09:52 Eos % (Auto) 0.8 % (0.0-4.3) 11/21/16 09:52 Baso % (Auto) 0.3 % (0.0-1.8) 11/21/16 09:52 Lymph # 1.3 K/mm3 (1.2-5.4) 11/21/16 09:52 Esmeralda # 1.2 K/mm3 (0.0-0.8) H 11/21/16 09:52 Eos # 0.1 K/mm3 (0.0-0.4) 11/21/16 09:52 Baso # 0.0 K/mm3 (0.0-0.1) 11/21/16 09:52 Add Manual Diff Complete 11/18/16 12:27 Total Counted 100 11/18/16 12:27 Seg Neutrophils % 77.6 % (40.0-70.0) H 11/21/16 09:52 Seg Neuts % (Manual) 83.0 % (40.0-70.0) H 11/18/16 12:27 Band Neutrophils % 2.0 % 11/18/16 12:27 Lymphocytes % (Manual) 11.0 % (13.4-35.0) L 11/18/16 12:27 Reactive Lymphs % (Man) 0 % 11/18/16 12:27 Monocytes % (Manual) 4.0 % (0.0-7.3) 11/18/16 12:27 Eosinophils % (Manual) 0 % (0.0-4.3) 11/18/16 12:27 Basophils % (Manual) 0 % (0.0-1.8) 11/18/16 12:27 Metamyelocytes % 0 % 11/18/16 12:27 Myelocytes % 0 % 11/18/16 12:27 Promyelocytes % 0 % 11/18/16 12:27 Blast Cells % 0 % 11/18/16 12:27 Nucleated RBC % Not Reportable 11/18/16 12:27 Seg Neutrophils # 9.0 K/mm3 (1.8-7.7) H 11/21/16 09:52 Seg Neutrophils # Man 17.9 K/mm3 (1.8-7.7) H 11/18/16 12:27 Band Neutrophils # 0.4 K/mm3 11/18/16 12:27 Lymphocytes # (Manual) 2.4 K/mm3 (1.2-5.4) 11/18/16 12:27 Abs React Lymphs (Man) 0.0 K/mm3 11/18/16 12:27 Monocytes # (Manual) 0.9 K/mm3 (0.0-0.8) H 11/18/16 12:27 Eosinophils # (Manual) 0.0 K/mm3 (0.0-0.4) 11/18/16 12:27 Basophils # (Manual) 0.0 K/mm3 (0.0-0.1) 11/18/16 12:27 Metamyelocytes # 0.0 K/mm3 11/18/16 12:27 Myelocytes # 0.0 K/mm3 11/18/16 12:27 Promyelocytes # 0.0 K/mm3 11/18/16 12:27 Blast Cells # 0.0 K/mm3 11/18/16 12:27 WBC Morphology Not Reportable 11/18/16 12:27 Hypersegmented Neuts Not Reportable 11/18/16 12:27 Hyposegmented Neuts Not Reportable 11/18/16 12:27 Hypogranular Neuts Not Reportable 11/18/16 12:27 Smudge Cells Not Reportable 11/18/16 12:27 Toxic Granulation Not Reportable 11/18/16 12:27 Toxic Vacuolation Not Reportable 11/18/16 12:27 Dohle Bodies Not Reportable 11/18/16 12:27 Pelger-Huet Anomaly Not Reportable 11/18/16 12:27 Josseline Rods Not Reportable 11/18/16 12:27 Platelet Estimate Not Reportable 11/18/16 12:27 Clumped Platelets Not Reportable 11/18/16 12:27 Plt Clumps, EDTA Not Reportable 11/18/16 12:27 Large Platelets Not Reportable 11/18/16 12:27 Giant Platelets Not Reportable 11/18/16 12:27 Platelet Satelliting Not Reportable 11/18/16 12:27 Plt Morphology Comment Not Reportable 11/18/16 12:27 RBC Morphology Not Reportable 11/18/16 12:27 Dimorphic RBCs Not Reportable 11/18/16 12:27 Polychromasia Not Reportable 11/18/16 12:27 Hypochromasia Not Reportable 11/18/16 12:27 Poikilocytosis Not Reportable 11/18/16 12:27 Anisocytosis Few 11/18/16 12:27 Microcytosis Not Reportable 11/18/16 12:27 Macrocytosis Not Reportable 11/18/16 12:27 Spherocytes Not Reportable 11/18/16 12:27 Pappenheimer Bodies Not Reportable 11/18/16 12:27 Sickle Cells Not Reportable 11/18/16 12:27 Target Cells Not Reportable 11/18/16 12:27 Tear Drop Cells Not Reportable 11/18/16 12:27 Ovalocytes Not Reportable 11/18/16 12:27 Helmet Cells Not Reportable 11/18/16 12:27 Ibarra-Freer Bodies Not Reportable 11/18/16 12:27 [place] Rings Not Reportable 11/18/16 12:27 Mills Cells Not Reportable 11/18/16 12:27 Bite Cells Not Reportable 11/18/16 12:27 Crenated Cell Not Reportable 11/18/16 12:27 Elliptocytes Not Reportable 11/18/16 12:27 Acanthocytes (Spur) Not Reportable 11/18/16 12:27 Rouleaux Not Reportable 11/18/16 12:27 Hemoglobin C Crystals Not Reportable 11/18/16 12:27 Schistocytes Not Reportable 11/18/16 12:27 Malaria parasites Not Reportable 11/18/16 12:27 ESR 75 mm/Hr (0-20) 11/19/16 21:00 Javier Bodies Not Reportable 11/18/16 12:27 Hem Pathologist Commnt No 11/18/16 12:27 Sodium 138 mmol/L (137-145) 11/21/16 09:52 Potassium 3.6 mmol/L (3.6-5.0) 11/21/16 09:52 Chloride 99.5 mmol/L (98-107) 11/21/16 09:52 Carbon Dioxide 25 mmol/L (22-30) 11/21/16 09:52 Anion Gap 17 mmol/L 11/21/16 09:52 BUN 7 mg/dL (9-20) L 11/21/16 09:52 Creatinine 1.0 mg/dL (0.8-1.5) 11/21/16 09:52 Estimated GFR > 60 ml/min 11/21/16 09:52 BUN/Creatinine Ratio 7.00 % 11/21/16 09:52 Glucose 211 mg/dL (75-100) H 11/21/16 09:52 POC Glucose 128 (70-105) H 11/18/16 12:21 Lactic Acid 3.3 mmol/L (0.7-2.0) H* 11/18/16 15:02 Calcium 8.9 mg/dL (8.4-10.2) 11/21/16 09:52 Magnesium 1.3 mg/dL (1.7-2.3) L 11/18/16 12:27 Total Bilirubin 1.9 mg/dL (0.1-1.2) H 11/18/16 12:27 AST 38 units/L (5-40) 11/18/16 12:27 ALT 48 units/L (7-56) 11/18/16 12:27 Alkaline Phosphatase 79 units/L (35-129) 11/18/16 12:27 Ammonia 30.0 umol/L (25-60) 11/21/16 09:52 Total Creatine Kinase 317 units/L (55-170) H 11/18/16 12:35 CK-MB (CK-2) 1.0 ng/mL (0.0-4.0) 11/18/16 12:35 CK-MB (CK-2) Rel Index 0.3 (0-4) 11/18/16 12:35 Troponin T < 0.010 ng/mL (0.00-0.029) 11/18/16 12:35 C-Reactive Protein 17.10 mg/dL (0.00-1.30) H 11/19/16 21:00 Total Protein 8.3 g/dL (6.3-8.2) H 11/18/16 12:27 Albumin 4.0 g/dL (3.9-5) 11/18/16 12:27 Albumin/Globulin Ratio 0.9 % 11/18/16 12:27 Vitamin B12 1328 pg/mL (211-911) H 11/21/16 09:52 TSH 2.470 mlU/mL (0.270-4.200) 11/18/16 12:35 Free T4 1.29 ng/dL (0.76-1.46) 11/18/16 12:35 Urine Color Yellow (Yellow) 11/18/16 14:32 Urine Turbidity Clear (Clear) 11/18/16 14:32 Urine pH 6.0 (5.0-7.0) 11/18/16 14:32 Ur Specific [place] 1.020 (1.003-1.030) 11/18/16 14:32 Urine Protein 100 mg/dl mg/dL (Negative) 11/18/16 14:32 Urine Glucose (UA) Neg mg/dL (Negative) 11/18/16 14:32 Urine Ketones 80 mg/dL (Negative) 11/18/16 14:32 Urine Blood Mod (Negative) 11/18/16 14:32 Urine Nitrite Neg (Negative) 11/18/16 14:32 Urine Bilirubin Neg (Negative) 11/18/16 14:32 Urine Ictotest Not Reportable 11/18/16 14:32 Urine Urobilinogen < 2.0 mg/dL (<2.0) 11/18/16 14:32 Ur Leukocyte Esterase Sm (Negative) 11/18/16 14:32 Urine WBC (Auto) 10.0 /HPF (0.0-6.0) H 11/18/16 14:32 Urine RBC (Auto) 12.0 /HPF (0.0-6.0) 11/18/16 14:32 Urine Bacteria (Auto) 2+ /HPF (Negative) 11/18/16 14:32 Urine Opiates Screen Presumptive negative 11/18/16 14:32 Urine Methadone Screen Presumptive negative 11/18/16 14:32 Acetaminophen < 15.0 ug/mL (10.0-30.0) 11/18/16 12:32 Ur Barbiturates Screen Presumptive negative 11/18/16 14:32 Ur Phencyclidine Scrn Presumptive negative 11/18/16 14:32 Ur Amphetamines Screen Presumptive negative 11/18/16 14:32 U Benzodiazepines Scrn Presumptive negative 11/18/16 14:32 Urine Cocaine Screen Presumptive negative 11/18/16 14:32 U Marijuana (THC) Screen Presumptive negative 11/18/16 14:32 Drugs of Abuse Note Disclamer 11/18/16 14:32 Plasma/Serum Alcohol < 0.01 gm% (0-0.07) 11/18/16 12:27 - Imaging and Cardiology Chest x-ray: report reviewed (normal) CT Scan - head: report reviewed (no acute finding)
--- NOTE | 2016-11-21 18:49 | Progress Note ---
Subjective Principal diagnosis: sepsis Interval history: No complaints today. PHYSICAL EXAM VS - afebrile Nect - supple. chest - good air entry abd - bs+ extremities - left leg swelling, redness and warm LABS - Reviewed. See lab section. esr 75 crp 17.1 ASSESSMENT 1. Sepsis 2. Leg cellulitis 3. OBESITY Recommendation 1. Meningits unlikely. D/C isolation 2. continue iv abx 3. elevate left leg 4. duplex sonogram le r/o dvt and mri le evaluate abscess/osteomyelitis. Objective - Constitutional Vitals: Vital Signs Temp Pulse Resp BP Pulse Ox 101.3 F H 98 H 20 144/90 97 11/21/16 16:00 11/21/16 16:00 11/21/16 16:00 11/21/16 16:00 11/21/16 04:00 Temperature -Last 24 Hours Temperature 101.3 F Temperature 100.5 F Temperature 99.3 F Temperature 98.2 F Temperature 98.1 F Temperature 98.3 F - Labs CBC & Chem 7: 11/21/16 09:52 11/21/16 09:52 Labs: Abnormal lab results 11/21/16 11/21/16 11/21/16 Range/Units 09:52 09:52 09:52 WBC 11.6 H (4.5-11.0) K/mm3 MCV 80 L (84-94) fl MCH 27 L (28-32) pg RDW 15.3 H (13.2-15.2) % Lymph % (Auto) 11.3 L (13.4-35.0) % [place] % (Auto) 10.0 H (0.0-7.3) % [place] # 1.2 H (0.0-0.8) K/mm3 Seg Neutrophils % 77.6 H (40.0-70.0) % Seg Neutrophils # 9.0 H (1.8-7.7) K/mm3 BUN 7 L (9-20) mg/dL Glucose 211 H (75-100) mg/dL Vitamin B12 1328 H (211-911) pg/mL
[2016-11-21] MEDS: LOVENOX SUB-Q SCH (21:53)
[2016-11-21] MEDS ORDERED: NACL 0.9% 1000 ML 1,000 ML IV SCH (23:00)
[2016-11-22] MEDS: VANCOMYCIN VIAL 1,250 MG in NACL 0.9% 250ML 250 ML IV SCH ×5 (04:36→20:45)
[2016-11-22] MEDS: ZOSYN/NS 4.5GM/100ML 4.5 GM/100 ML VIAL IV SCH ×4 (06:28→21:58)
[2016-11-22 06:41] LABS: Basophils % (Auto) 0.4 % (0.0-1.8); Eosinophils % (Auto) 1.3 % (0.0-4.3); Hematocrit 36.9 % (35.5-45.6); Hemoglobin 12.5 gm/dl (11.8-15.2); Mean Corpuscular HGB Conc 34 % (32-34); Mean Corpuscular Hemoglobin 27 pg (28-32); Mean Corpuscular Volume 78 fl (84-94); Platelet Count 235 K/mm3 (140-440); Red Blood Count 4.72 M/mm3 (3.65-5.03); White Blood Count 15.3 K/mm3 (4.5-11.0)
[2016-11-22 06:56] LABS: Anion Gap 19 mmol/L; BUN/Creatinine Ratio 7.77; Blood Urea Nitrogen 7 mg/dL (9-20); Carbon Dioxide 25 mmol/L (22-30); Chloride 100.7 mmol/L (98-107); Glucose 144 mg/dL (75-100); Potassium 3.5 mmol/L (3.6-5.0); Sodium 141 mmol/L (137-145)
--- NOTE | 2016-11-22 16:47 | Progress Note ---
Subjective Date of service: 11/22/16 Principal diagnosis: sepsis Interval history: No complaints today. PHYSICAL EXAM VS - afebrile Nect - supple. chest - good air entry abd - bs+ extremities - left leg swelling, redness and warm LABS - Reviewed. See lab section. esr 75 crp 17.1 ASSESSMENT 1. Sepsis 2. Leg cellulitis 3. OBESITY Recommendation 1. Meningits unlikely. D/C isolation 2. continue iv abx 3. elevate left leg 4. awaits duplex sonogram and mri reports. Objective - Constitutional Vitals: Vital Signs Temp Pulse Resp BP Pulse Ox 98.1 F 92 H 18 140/77 97 11/22/16 04:00 11/22/16 04:00 11/22/16 04:00 11/22/16 04:00 11/22/16 04:00 Temperature -Last 24 Hours Temperature 98.1 F Temperature 98.4 F Temperature 98.7 F - Labs CBC & Chem 7: 11/22/16 06:21 11/22/16 06:21 Labs: Abnormal lab results 11/21/16 11/22/16 11/22/16 Range/Units 22:39 06:21 06:21 WBC 15.3 H (4.5-11.0) K/mm3 MCV 78 L (84-94) fl MCH 27 L (28-32) pg Lymph % (Auto) 10.8 L (13.4-35.0) % [place] % (Auto) 9.6 H (0.0-7.3) % [place] # 1.5 H (0.0-0.8) K/mm3 Seg Neutrophils % 77.9 H (40.0-70.0) % Seg Neutrophils # 11.9 H (1.8-7.7) K/mm3 Potassium 3.5 L (3.6-5.0) mmol/L BUN 7 L (9-20) mg/dL Glucose 144 H (75-100) mg/dL Hemoglobin A1c 6.2 H (4-6) %
[2016-11-22] MEDS: LOVENOX SUB-Q SCH (21:59)
--- NOTE | 2016-11-22 22:22 | Progress Note ---
Assessment and Plan Assessment and plan: patient is 31-year-old male presenting with a chief complaint of altered mental status, fever, elevated white count and LLE swelling. Altered mental status/toxic encephalopathy likely due to sepsis, resolved Sepsis likely due to left lower extremity cellulitis (consistent with high reticulocyte count, high WBC count, and fever) Possible bacterial meningitis, ruled out by ID Left lower extremity cellulitis Hypokalemia DVT prophylaxis - cont IV abx to cover for cellulitis - blood cx negative - ID recommended MRI and venous doppler of the LLE afor persistant swelling and fever - replace electrolytes as needed - will get medical records from [place] as he had similar episode of confusion about 4 years ago - DVT Px with lovenox History Interval history: no specific complaints Hospitalist Physical - Constitutional Vitals: Temp Pulse Resp BP Pulse Ox 99.5 F 97 H 20 139/79 98 11/22/16 21:34 11/22/16 21:34 11/22/16 21:34 11/22/16 21:34 11/22/16 21:34 Results - Labs CBC & Chem 7: 11/22/16 06:21 11/22/16 06:21 Labs: Laboratory Last Values WBC 15.3 K/mm3 (4.5-11.0) H 11/22/16 06:21 RBC 4.72 M/mm3 (3.65-5.03) 11/22/16 06:21 Hgb 12.5 gm/dl (11.8-15.2) 11/22/16 06:21 Hct 36.9 % (35.5-45.6) 11/22/16 06:21 MCV 78 fl (84-94) L 11/22/16 06:21 MCH 27 pg (28-32) L 11/22/16 06:21 MCHC 34 % (32-34) 11/22/16 06:21 RDW 15.0 % (13.2-15.2) 11/22/16 06:21 Plt Count 235 K/mm3 (140-440) 11/22/16 06:21 Lymph % (Auto) 10.8 % (13.4-35.0) L 11/22/16 06:21 [place] % (Auto) 9.6 % (0.0-7.3) H 11/22/16 06:21 Eos % (Auto) 1.3 % (0.0-4.3) 11/22/16 06:21 Baso % (Auto) 0.4 % (0.0-1.8) 11/22/16 06:21 Lymph # 1.6 K/mm3 (1.2-5.4) 11/22/16 06:21 [place] # 1.5 K/mm3 (0.0-0.8) H 11/22/16 06:21 Eos # 0.2 K/mm3 (0.0-0.4) 11/22/16 06:21 Baso # 0.1 K/mm3 (0.0-0.1) 11/22/16 06:21 Add Manual Diff Complete 11/18/16 12:27 Total Counted 100 11/18/16 12:27 Seg Neutrophils % 77.9 % (40.0-70.0) H 11/22/16 06:21 Seg Neuts % (Manual) 83.0 % (40.0-70.0) H 11/18/16 12:27 Band Neutrophils % 2.0 % 11/18/16 12:27 Lymphocytes % (Manual) 11.0 % (13.4-35.0) L 11/18/16 12:27 Reactive Lymphs % (Man) 0 % 11/18/16 12:27 Monocytes % (Manual) 4.0 % (0.0-7.3) 11/18/16 12:27 Eosinophils % (Manual) 0 % (0.0-4.3) 11/18/16 12:27 Basophils % (Manual) 0 % (0.0-1.8) 11/18/16 12:27 Metamyelocytes % 0 % 11/18/16 12:27 Myelocytes % 0 % 11/18/16 12:27 Promyelocytes % 0 % 11/18/16 12:27 Blast Cells % 0 % 11/18/16 12:27 Nucleated RBC % Not Reportable 11/18/16 12:27 Seg Neutrophils # 11.9 K/mm3 (1.8-7.7) H 11/22/16 06:21 Seg Neutrophils # Man 17.9 K/mm3 (1.8-7.7) H 11/18/16 12:27 Band Neutrophils # 0.4 K/mm3 11/18/16 12:27 Lymphocytes # (Manual) 2.4 K/mm3 (1.2-5.4) 11/18/16 12:27 Abs React Lymphs (Man) 0.0 K/mm3 11/18/16 12:27 Monocytes # (Manual) 0.9 K/mm3 (0.0-0.8) H 11/18/16 12:27 Eosinophils # (Manual) 0.0 K/mm3 (0.0-0.4) 11/18/16 12:27 Basophils # (Manual) 0.0 K/mm3 (0.0-0.1) 11/18/16 12:27 Metamyelocytes # 0.0 K/mm3 11/18/16 12:27 Myelocytes # 0.0 K/mm3 11/18/16 12:27 Promyelocytes # 0.0 K/mm3 11/18/16 12:27 Blast Cells # 0.0 K/mm3 11/18/16 12:27 WBC Morphology Not Reportable 11/18/16 12:27 Hypersegmented Neuts Not Reportable 11/18/16 12:27 Hyposegmented Neuts Not Reportable 11/18/16 12:27 Hypogranular Neuts Not Reportable 11/18/16 12:27 Smudge Cells Not Reportable 11/18/16 12:27 Toxic Granulation Not Reportable 11/18/16 12:27 Toxic Vacuolation Not Reportable 11/18/16 12:27 Dohle Bodies Not Reportable 11/18/16 12:27 Pelger-Huet Anomaly Not Reportable 11/18/16 12:27 Josseline Rods Not Reportable 11/18/16 12:27 Platelet Estimate Not Reportable 11/18/16 12:27 Clumped Platelets Not Reportable 11/18/16 12:27 Plt Clumps, EDTA Not Reportable 11/18/16 12:27 Large Platelets Not Reportable 11/18/16 12:27 Giant Platelets Not Reportable 11/18/16 12:27 Platelet Satelliting Not Reportable 11/18/16 12:27 Plt Morphology Comment Not Reportable 11/18/16 12:27 RBC Morphology Not Reportable 11/18/16 12:27 Dimorphic RBCs Not Reportable 11/18/16 12:27 Polychromasia Not Reportable 11/18/16 12:27 Hypochromasia Not Reportable 11/18/16 12:27 Poikilocytosis Not Reportable 11/18/16 12:27 Anisocytosis Few 11/18/16 12:27 Microcytosis Not Reportable 11/18/16 12:27 Macrocytosis Not Reportable 11/18/16 12:27 Spherocytes Not Reportable 11/18/16 12:27 Pappenheimer Bodies Not Reportable 11/18/16 12:27 Sickle Cells Not Reportable 11/18/16 12:27 Target Cells Not Reportable 11/18/16 12:27 Tear Drop Cells Not Reportable 11/18/16 12:27 Ovalocytes Not Reportable 11/18/16 12:27 Helmet Cells Not Reportable 11/18/16 12:27 Ibarra-Dermott Bodies Not Reportable 11/18/16 12:27 Bogard Rings Not Reportable 11/18/16 12:27 Neel Cells Not Reportable 11/18/16 12:27 Bite Cells Not Reportable 11/18/16 12:27 Crenated Cell Not Reportable 11/18/16 12:27 Elliptocytes Not Reportable 11/18/16 12:27 Acanthocytes (Spur) Not Reportable 11/18/16 12:27 Rouleaux Not Reportable 11/18/16 12:27 Hemoglobin C Crystals Not Reportable 11/18/16 12:27 Schistocytes Not Reportable 11/18/16 12:27 Malaria parasites Not Reportable 11/18/16 12:27 ESR 75 mm/Hr (0-20) 11/19/16 21:00 Javier Bodies Not Reportable 11/18/16 12:27 Hem Pathologist Commnt No 11/18/16 12:27 Sodium 141 mmol/L (137-145) 11/22/16 06:21 Potassium 3.5 mmol/L (3.6-5.0) L 11/22/16 06:21 Chloride 100.7 mmol/L (98-107) 11/22/16 06:21 Carbon Dioxide 25 mmol/L (22-30) 11/22/16 06:21 Anion Gap 19 mmol/L 11/22/16 06:21 BUN 7 mg/dL (9-20) L 11/22/16 06:21 Creatinine 0.9 mg/dL (0.8-1.5) 11/22/16 06:21 Estimated GFR > 60 ml/min 11/22/16 06:21 BUN/Creatinine Ratio 7.77 % 11/22/16 06:21 Glucose 144 mg/dL (75-100) H 11/22/16 06:21 POC Glucose 128 (70-105) H 11/18/16 12:21 Hemoglobin A1c 6.2 % (4-6) H 11/21/16 22:39 Lactic Acid 3.3 mmol/L (0.7-2.0) H* 11/18/16 15:02 Calcium 9.0 mg/dL (8.4-10.2) 11/22/16 06:21 Magnesium 1.3 mg/dL (1.7-2.3) L 11/18/16 12:27 Total Bilirubin 1.9 mg/dL (0.1-1.2) H 11/18/16 12:27 AST 38 units/L (5-40) 11/18/16 12:27 ALT 48 units/L (7-56) 11/18/16 12:27 Alkaline Phosphatase 79 units/L (35-129) 11/18/16 12:27 Ammonia 30.0 umol/L (25-60) 11/21/16 09:52 Total Creatine Kinase 317 units/L (55-170) H 11/18/16 12:35 CK-MB (CK-2) 1.0 ng/mL (0.0-4.0) 11/18/16 12:35 CK-MB (CK-2) Rel Index 0.3 (0-4) 11/18/16 12:35 Troponin T < 0.010 ng/mL (0.00-0.029) 11/18/16 12:35 C-Reactive Protein 17.10 mg/dL (0.00-1.30) H 11/19/16 21:00 Total Protein 8.3 g/dL (6.3-8.2) H 11/18/16 12:27 Albumin 4.0 g/dL (3.9-5) 11/18/16 12:27 Albumin/Globulin Ratio 0.9 % 11/18/16 12:27 Vitamin B12 1328 pg/mL (211-911) H 11/21/16 09:52 TSH 2.470 mlU/mL (0.270-4.200) 11/18/16 12:35 Free T4 1.29 ng/dL (0.76-1.46) 11/18/16 12:35 Urine Color Yellow (Yellow) 11/18/16 14:32 Urine Turbidity Clear (Clear) 11/18/16 14:32 Urine pH 6.0 (5.0-7.0) 11/18/16 14:32 Ur Specific [place] 1.020 (1.003-1.030) 11/18/16 14:32 Urine Protein 100 mg/dl mg/dL (Negative) 11/18/16 14:32 Urine Glucose (UA) Neg mg/dL (Negative) 11/18/16 14:32 Urine Ketones 80 mg/dL (Negative) 11/18/16 14:32 Urine Blood Mod (Negative) 11/18/16 14:32 Urine Nitrite Neg (Negative) 11/18/16 14:32 Urine Bilirubin Neg (Negative) 11/18/16 14:32 Urine Ictotest Not Reportable 11/18/16 14:32 Urine Urobilinogen < 2.0 mg/dL (<2.0) 11/18/16 14:32 Ur Leukocyte Esterase Sm (Negative) 11/18/16 14:32 Urine WBC (Auto) 10.0 /HPF (0.0-6.0) H 11/18/16 14:32 Urine RBC (Auto) 12.0 /HPF (0.0-6.0) 11/18/16 14:32 Urine Bacteria (Auto) 2+ /HPF (Negative) 11/18/16 14:32 Urine Opiates Screen Presumptive negative 11/18/16 14:32 Urine Methadone Screen Presumptive negative 11/18/16 14:32 Acetaminophen < 15.0 ug/mL (10.0-30.0) 11/18/16 12:32 Ur Barbiturates Screen Presumptive negative 11/18/16 14:32 Ur Phencyclidine Scrn Presumptive negative 11/18/16 14:32 Ur Amphetamines Screen Presumptive negative 11/18/16 14:32 U Benzodiazepines Scrn Presumptive negative 11/18/16 14:32 Urine Cocaine Screen Presumptive negative 11/18/16 14:32 U Marijuana (THC) Screen Presumptive negative 11/18/16 14:32 Drugs of Abuse Note Disclamer 11/18/16 14:32 Plasma/Serum Alcohol < 0.01 gm% (0-0.07) 11/18/16 12:27
[2016-11-23] MEDS: VANCOMYCIN VIAL 1,250 MG in NACL 0.9% 250ML 250 ML IV SCH ×2 (04:50→12:37)
[2016-11-23] MEDS: ZOSYN/NS 4.5GM/100ML 4.5 GM/100 ML VIAL IV SCH (05:53)
[2016-11-23 08:35] VITALS: BP 131/69
--- NOTE | 2016-11-23 10:45 | Magnetic Resonance Report ---
MRI LEFT LOWER LEG WITHOUT CONTRAST: 11/22/16 18:46:00 CLINICAL: Swelling. COMPARISON:None. TECHNIQUE: Sagittal, coronal and axial T1, coronal and axial T2 fat sat, sagittal and coronal STIR sequences of the lower leg from the knee to the ankle on a 1.5 Norah magnet. This examination targeted the lower leg and comprehensive examinations of the knee and ankle were not performed. FINDINGS: Marked diffuse subcutaneous soft tissue edema from the knee to the ankle. No deep soft tissue edema or abscess. Normal marrow signal with no marrow edema or fracture. The muscles have normal signal. No bone lesion. No erosive changes in the bones. IMPRESSION: Nonspecific superficial soft tissue edema of the lower leg with cellulitis a primary consideration. No deep soft tissue edema or abscess. No signs of osteomyelitis.
--- NOTE | 2016-11-23 12:56 | Discharge Summary ---
Providers - Providers Date of Admission: 11/18/16 15:46 Date of discharge: 11/23/16 Attending physician: MICHAEL GALLEGOS 11/18/16 23:13 Consult to Physician [CONS] Routine Consulting Provider: BARRY MARTIN Reason For Exam: AMS Place consult to:: tel [phone] Notified:: LEFT MESSAGE Phone number called:: Call in AM Time called:: 08:26 Comment:: LEFT MESSAGE TO CALL NURSE 11/19/16 16:33 Consult to Physician [CONS] Routine Consulting Provider: JORGE ALBERTO FAY Reason For Exam: altered mental status Place consult to:: Dr. Fay Notified:: Lucy NAM Phone number called:: [phone] Was contact made?: Yes If yes, spoke with:: Voicemail with consult info left for Anca Pichardo Time called:: 07:48 11/21/16 16:05 Physical Therapy Evaluation and Treat [CONS] Routine Comment: Reason For Exam: ambulation Primary care physician: HEM MARKER Hospitalization Condition: Stable Disposition: DISCHARGED TO HOME OR SELFCARE Time spent for discharge: 35 min Core Measure Documentation - Palliative Care Palliative Care/ Comfort Measures: Not Applicable - Core Measures Any of the following diagnoses?: none Exam - Constitutional Vitals: Temp Pulse Resp BP Pulse Ox 98.8 F 92 H 20 131/69 99 11/23/16 08:34 11/23/16 09:22 11/23/16 08:34 11/23/16 08:34 11/23/16 08:34 Plan Activity: advance as tolerated Diet: low cholesterol, low salt Follow up with: TAMKIA DOUGLASS MD [Primary Care Provider] - 3-5 Days BARRY MARTIN MD [Staff Physician] - 7 Days Prescriptions: Sulfamethoxazole/Trimethoprim [Bactrim 400-80 mg] 1 tab PO BID #14 tab
== END 2016-11-23 17:10 | disposition home or self-care (01) | DRG 871 ==
LOC: ED 11:47 → 4A 15:46
PROVIDERS: ADMIT Internal Medicine; ATTEND Internal Medicine
DX: A41.9 Sepsis, unspecified organism (principal); G03.9 Meningitis, unspecified; G92 Toxic encephalopathy; L03.119 Cellulitis of unspecified part of limb; Z68.41 Body mass index [BMI] 40.0-44.9, adult; D72.829 Elevated white blood cell count, unspecified; J45.909 Unspecified asthma, uncomplicated; I10 Essential (primary) hypertension; R65.10 Systemic inflammatory response syndrome (SIRS) of non-infectious origin without acute organ dysfunction; E66.9 Obesity, unspecified; E87.6 Hypokalemia
CPT/HCPCS: 36415; 70450; 71010; 80048; 80053; 80202; 80307; 80320; 81001; 82140; 82550; 82553; 82607; 82962; 83036; 83735; 84439; 84443; 84484; 85007; 85025; 85652; 86140; 87040; 93005; 93010; 96365; 96367; G0480; J0696; J1650; J2250; J2543; J3370; J3475; J3480; J7030; J7042; J7050

== ENCOUNTER 2018-10-14 15:58 | Emergency (ER) | payer OTHER, SELFPAY ==
--- NOTE | 2018-10-14 16:14 | Emergency Department Report ---
Chief Complaint: Extremity Problem,Nontraumatic Stated Complaint: BURNING SENSATION IN L ARM Time Seen by Provider: 10/14/18 16:10 - HPI History of Present Illness: Pt is c/o left arm tingling/ burning sensation on 10/10 he states he also feels tingling in the left temporal region Pt states he used an arm cuff at home and it was 185/117 he denies any CHRISTINE, CP, vision changes, unilateral weakness, gait change, speech changes, or facial drooping He states in 2016 he was given a "temporary BP medication" but has not seen anyone since then no family hx HTN hx of asthma MSE complete MSE screening note: Focused history and physical exam performed. Due to findings the following was ordered: ED Disposition for MSE Condition: Stable
[2018-10-14] MEDS ORDERED: NORVASC PO ONE (16:43)
[2018-10-14] MEDS ORDERED: TYLENOL PO ONE (16:43)
--- NOTE | 2018-10-14 16:44 | Emergency Department Report ---
ED General Adult HPI - General Chief complaint: Extremity Problem,Nontraumatic Stated complaint: BURNING SENSATION IN L ARM Time Seen by Provider: 10/14/18 16:10 Source: patient, RN notes reviewed, old records reviewed Mode of arrival: Ambulatory Limitations: No Limitations - History of Present Illness Initial comments: This is a pleasant 33-year-old gentleman who is not known to this provider previously. He has a history of obesity and cellulitis. He does not take any antihypertensive medication that he is aware. The patient presents to the emergency room today with a complaint of nontraumatic burning discomfort to his left upper extremity. This sensation is present for the past 3 days. It is intermittent. It starts in the left shoulder, and radiates to the hand. He denies weakness. He denies headache, neck pain, chest pain, abdominal pain, shortness of breath. He has chronic lower extremity swelling, which is not new, worsening or different. He denies hematemesis, bright red blood per rectum, and DVT, pulmonary embolus risk fac tors. He also denies bladder or bowel retention, incontinence, and he denies saddle anesthesia. -: Gradual Location: left, upper extremity Radiation: extremity Severity scale (0 -10): 8 Quality: burning Consistency: intermittent Improves with: none Worsens with: none Associated Symptoms: denies other symptoms, other (burning sensation, occasional numbness) - Related Data Previous Rx's Medication Instructions Recorded Last Taken Type Sulfamethoxazole/Trimethoprim 1 tab PO BID #14 tab 11/23/16 Unknown Rx [Bactrim 400-80 mg] Acetaminophen [Tylenol Arthritis] 650 mg PO Q6HR PRN #30 tablet.er 10/14/18 Unknown Rx Ibuprofen [Motrin] 600 mg PO Q8H PRN #30 tablet 10/14/18 Unknown Rx Allergies Allergy/AdvReac Type Severity Reaction Status Date / Time No Known Allergies Allergy Unverified 12/23/13 09:40 ED Review of Systems ROS: Stated complaint: BURNING SENSATION IN L ARM Other details as noted in HPI Constitutional: denies: fever, malaise Eyes: denies: vision change ENT: denies: congestion Respiratory: denies: cough, shortness of breath, SOB with exertion, wheezing Cardiovascular: denies: chest pain Gastrointestinal: denies: abdominal pain, nausea, vomiting Genitourinary: denies: dysuria Musculoskeletal: myalgia, other (burning radicular pain) Skin: denies: rash, lesions Neurological: paresthesias. denies: headache, weakness ED Past Medical Hx - Past Medical History Hx Hypertension: Yes Hx Asthma: Yes Additional medical history: gout - Surgical History Additional Surgical History: denies - Social History Smoking Status: Never Smoker Substance Use Type: Alcohol - Medications Home Medications: Home Medications Medication Instructions Recorded Confirmed Last Taken Type Sulfamethoxazole/Trimethoprim 1 tab PO BID #14 tab 11/23/16 Unknown Rx [Bactrim 400-80 mg] Acetaminophen [Tylenol Arthritis] 650 mg PO Q6HR PRN #30 tablet.er 10/14/18 Unknown Rx Ibuprofen [Motrin] 600 mg PO Q8H PRN #30 tablet 10/14/18 Unknown Rx ED Physical Exam - General Limitations: No Limitations General appearance: alert, in no apparent distress, obese - Head Head exam: Present: atraumatic, normocephalic - Eye Eye exam: Present: normal appearance, EOMI. Absent: nystagmus - ENT ENT exam: Present: normal exam, normal orophraynx, mucous membranes moist, normal external ear exam - Neck Neck exam: Present: normal inspection, full ROM. Absent: tenderness, meningismus - Respiratory Respiratory exam: Present: normal lung sounds bilaterally (clear breath sounds in the left hemithorax. Clear breath sounds in the right upper hemithorax), rhonchi, other (very faint rhonchi noted in the right lower lung chavez). Abs ent: respiratory distress, wheezes, rales - Cardiovascular Cardiovascular Exam: Present: regular rate, normal rhythm, normal heart sounds. Absent: bradycardia, tachycardia, irregular rhythm, systolic murmur, diastolic murmur, rubs, gallop - GI/Abdominal GI/Abdominal exam: Present: soft. Absent: distended, tenderness, guarding, rebound, rigid, pulsatile mass - Rectal Rectal exam: Present: deferred - Extremities Exam Extremities exam: Present: normal inspection, full ROM, pedal edema, other (2+ pulses noted in the bilateral upper, lower extremities. Compartments soft. No long bony tenderness. The pelvis is stable.). Absent: calf tenderness - Back Exam Back exam: Present: normal inspection - Neurological Exam Neurological exam: Present: alert, oriented X3, CN II-XII intact, normal gait, reflexes normal (downgoing plantar reflexes in the bilateral lower extremities. Sensation intact to light touch, pinch, proprioception in the bilateral upper extremities. 2+ biceps, triceps, brachial radialis reflexes bilaterally.), other (Extraocular movements intact. Tongue midline. No facial droop. Facial sensation intact to light touch in the V1, V2, V3 distribution bilaterally. 5 and 5 strength in 4 extremities.. Sensation is intact to light touch in 4 extremities.). Absent: motor sensory deficit - Psychiatric Psychiatric exam: Present: normal affect, normal mood - Skin Skin exam: Present: warm, dry, intact, normal color. Absent: rash ED Course Vital Signs 10/14/18 16:10 Temperature 97.6 F Pulse Rate 80 Respiratory 18 Rate Blood Pressure 218/142 O2 Sat by Pulse 98 Oximetry - Reevaluation(s) Reevaluation #1: 10/14/18 17:26 Differential diagnosis, including but not limited to: Cervical radiculopathy, obesity, undiagnosed hypertension, renal insufficiency, dependent edema Assessment and plan: 33-year-old gentleman with a primary complaint of burning left upper extremity pain, suggestive of cervical radiculopathy. The patient has no weakness or sensory deficits and has appropriate reflexes. He does not appear to have an imminent compressive cord syndrome currently. This can be managed supportively and expectantly. He is found to be fairly hypertensive, without an existing diagnosis, and his current blood pressure is 175/131. Had very faint pulmonary findings on his right lower hemithorax, although x-ray of the chest is clear, and saturating well on room air. He reports chronic lower extremity edema, which is not a new, worsening or different. Screening laboratory studies have been requested to exclude renal insufficiency. Reevaluation #2: 10/14/18 17:46 Laboratory studies reviewed and are appreciated and are not consistent with acute renal insufficiency. Burning pain is improved in the left upper ex tremity. Extensive discussion had with patient regarding need for diet and lifestyle modifications. Extensive discussion had with patient regarding various options for addressing his elevated blood pressure. Through shared decision making, the patient reports that he would like to attempt diet left somewhat medications instead of going on chronic medications. He was counseled about possible long-term effects and health risks associated with hypertension, including stroke, heart attack, blindness and disability. He verbalized understanding. Patient was advised to return to the emergency room right away if he developed any new, worsening or different symptoms and he verbalized understanding. ED Medical Decision Making - Lab Data Result diagrams: 10/14/18 17:02 10/14/18 17:02 Vital Signs 10/14/18 16:10 Temperature 97.6 F Pulse Rate 80 Respiratory 18 Rate Blood Pressure 218/142 O2 Sat by Pulse 98 Oximetry Lab Results 10/14/18 Range/Units 17:02 PT 14.1 (12.2-14.9) Sec. INR 1.03 (0.87-1.13) Vital Signs 10/14/18 16:10 Temperature 97.6 F Pulse Rate 80 Respiratory 18 Rate Blood Pressure 218/142 O2 Sat by Pulse 98 Oximetry Lab Results 10/14/18 10/14/18 10/14/18 Range/Units 17:02 17:02 17:02 WBC 7.2 (4.5-11.0) K/mm3 RBC 5.90 H (3.65-5.03) M/mm3 Hgb 16.3 H (11.8-15.2) gm/dl Hct 45.5 (35.5-45.6) % MCV 77 L (84-94) fl MCH 28 (28-32) pg MCHC 36 H (32-34) % RDW 15.7 H (13.2-15.2) % Plt Count 240 (140-440) K/mm3 PT 14.1 (12.2-14.9) Sec. INR 1.03 (0.87-1.13) Sodium 136 L (137-145) mmol/L Potassium 4.3 (3.6-5.0) mmol/L Chloride 93.8 L (98-107) mmol/L Carbon Dioxide 28 (22-30) mmol/L Anion Gap 19 mmol/L BUN 8 L (9-20) mg/dL Creatinine 0.8 (0.8-1.5) mg/dL Estimated GFR > 60 ml/min BUN/Creatinine Ratio 10 % Glucose 176 H (75-100) mg/dL Calcium 9.7 (8.4-10.2) mg/dL Total Creatine Kinase 183 H (55-170) units/L NT-Pro-B Natriuret Pep 106.3 (0-450) pg/mL - Radiology Data Radiology results: report reviewed, image reviewed X-ray of the chest is negative for acute disease Critical care attestation.: If time is entered above; I have spent that time in minutes in the direct care of this critically ill patient, excluding procedure time. ED Disposition Clinical Impression: Elevated blood pressure reading, Cervical radiculopathy Disposition: - TO HOME OR SELFCARE Is pt being admited?: No Does the pt Need Aspirin: No Condition: Stable Instructions: Cervical Radiculopathy (ED), Hypertension (ED) Additional Instructions: Symptoms likely coming from pinched nerve, cervical radiculopathy in the left upper extremity. Rest, avoid heavy lifting, and avoid strenuous physical activities. I recommend the patient lose weight, and modified diet and lifestyle as we have discussed. Please follow up with your primary care doctor within the next 4-6 weeks. Please note that blood pressure was found to be elevated in the emergency department. This should be followed up by a primary care doctor within the next 4-6 weeks. I recommended the patient lose weight as we've discussed, and modified diet to include fruits, fibers, vegetables, avoid heavy, spicy foods, avoid alcohol intake, decreased, minimize salt intake, decreased, minimize fatty food intake. Long-term complications of hypertension and elevated blood pressure includes stroke, heart attack, disability, paralysis, loss of quality of life. Please return to the emergency room right away with new pain, worsening pain, migration of pain, new weakness, projectile vomiting, change in mental status, confusion, new, worsening or different symptoms. Referrals: [facility] [Provider Group] - as needed [facility] [Provider Group] - as needed
--- NOTE | 2018-10-14 17:19 | XRay Report ---
PROCEDURE: XR CHEST ROUTINE 2V TECHNIQUE: PA and lateral views of the chest. HISTORY: htn ? rales at the base COMPARISONS: None FINDINGS: Lines, tubes, and devices: N/A Lungs and pleura: Trachea is normal in position. Lungs are clear of infiltrate, pleural effusion, vas cular congestion, or pneumothorax. Cardiomediastinal silhouette: Cardiac and mediastinal silhouettes are unremarkable. Other: Bony structures are intact. IMPRESSION: No acute cardiopulmonary process seen. . This document is electronically signed by Mechelle Palomo MD., October 14 2018 05:16:41 PM ET
[2018-10-14 17:20] LABS: Mean Corpuscular HGB Conc 36 % (32-34); Mean Corpuscular Volume 77 fl (84-94); Platelet Count 240 K/mm3 (140-440); Red Cell Distribution Width 15.7 % (13.2-15.2)
[2018-10-14 17:24] LABS: INR 1.03 (0.87-1.13)
[2018-10-14 17:28] LABS: Hematocrit 45.5 % (35.5-45.6); Hemoglobin 16.3 gm/dl (11.8-15.2)
[2018-10-14 17:32] LABS: BUN/Creatinine Ratio 10; Blood Urea Nitrogen 8 mg/dL (9-20); Calcium 9.7 mg/dL (8.4-10.2); Hemolysis Index 14
[2018-10-14] MEDS ORDERED: IBUPROFEN PO ONE (17:40)
[2018-10-14 17:47] VITALS: BP 171/131
== END 2018-10-14 17:57 | disposition home or self-care (01) ==
LOC: ED 15:58
DX: M54.12 Radiculopathy, cervical region (principal); I10 Essential (primary) hypertension; J45.909 Unspecified asthma, uncomplicated; M10.9 Gout, unspecified
CPT/HCPCS: 36415; 71046; 80048; 82550; 83880; 85027; 85610; 93005; 93010; 99284

== ENCOUNTER 2019-03-16 17:43 | Inpatient (IN) | payer SELFPAY ==
[2019-03-16] MEDS ORDERED: NACL 0.9% 1000 ML 1,000 ML IV ONE (17:59)
[2019-03-16] MEDS ORDERED: HumuLIN R IV ONE (18:00)
--- NOTE | 2019-03-16 18:04 | Emergency Department Report ---
ED General Adult HPI - General Chief complaint: Altered Mental Status Stated complaint: AMS Time Seen by Provider: 03/16/19 17:57 Source: EMS Mode of arrival: Stretcher Limitations: Altered Mental Status - History of Present Illness Initial comments: Patient is 33 years old male morbidly obese, hypertension and possible diagnosis of diabetes. Patient presented to the ER via EMS for evaluation of confusion, unknown time of onset. Patient is moving all his extremities. Patient is answering yes and no for all questions. No family available. Then more history. - Related Data Previous Rx's Medication Instructions Recorded Last Taken Type Sulfamethoxazole/Trimethoprim 1 tab PO BID #14 tab 11/23/16 Unknown Rx [Bactrim 400-80 mg] Acetaminophen [Tylenol Arthritis] 650 mg PO Q6HR PRN #30 tablet.er 10/14/18 Unknown Rx Ibuprofen [Motrin] 600 mg PO Q8H PRN #30 tablet 10/14/18 Unknown Rx Allergies Allergy/AdvReac Type Severity Reaction Status Date / Time No Known Allergies Allergy Unverified 12/23/13 09:40 ED Review of Systems ROS: Stated complaint: AMS Other details as noted in HPI Comment: All other systems reviewed and negative Constitutional: denies: chills, fever Respiratory: denies: cough, orthopnea, shortness of breath, SOB at rest, wheezing Cardiovascular: denies: chest pain, palpitations Gastrointestinal: denies: abdominal pain, nausea, vomiting Genitourinary: denies: urgency, dysuria, frequency, hematuria, discharge Musculoskeletal: denies: back pain Neurological: denies: headache, weakness, numbness, paresthesias, confusion, abnormal gait ED Past Medical Hx - Past Medical History Hx Hypertension: Yes Hx Asthma: Yes Additional medical history: gout - Surgical History Additional Surgical History: denies - Social History Smoking Status: Never Smoker Substance Use Type: Alcohol - Medications Home Medications: Home Medications Medication Instructions Recorded Confirmed Last Taken Type Sulfamethoxazole/Trimethoprim 1 tab PO BID #14 tab 11/23/16 Unknown Rx [Bactrim 400-80 mg] Acetaminophen [Tylenol Arthritis] 650 mg PO Q6HR PRN #30 tablet.er 10/14/18 Unknown Rx Ibuprofen [Motrin] 600 mg PO Q8H PRN #30 tablet 10/14/18 Unknown Rx ED Physical Exam - General Limitations: Altered Mental Status General appearance: alert, in no apparent distress - Head Head exam: Present: atraumatic, normocephalic, normal inspection - Eye Eye exam: Present: normal appearance, PERRL - ENT ENT exam: Present: mucous membranes dry - Neck Neck exam: Present: normal inspection, full ROM. Absent: tenderness, meningismus, lymphadenopathy, thyromegaly - Respiratory Respiratory exam: Present: normal lung sounds bilaterally - Cardiovascular Cardiovascular Exam: Present: regular rate, normal rhythm, normal heart sounds - GI/Abdominal GI/Abdominal exam: Present: soft, normal bowel sounds. Absent: distended, tenderness, guarding, rebound, rigid, organomegaly, mass, bruit, pulsatile mass, hernia - Extremities Exam Extremities exam: Present: normal inspection, full ROM, normal capillary refill. Absent: tenderness, pedal edema, joint swelling, calf tenderness - Back Exam Back exam: Present: normal inspection, full ROM. Absent: CVA tenderness (R), CVA tenderness (L), muscle spasm, paraspinal tenderness, vertebral tenderness, rash noted - Neurological Exam Neurological exam: Present: alert, altered, CN II-XII intact, normal gait, r eflexes normal. Absent: motor sensory deficit - Psychiatric Psychiatric exam: Present: normal mood - Skin Skin exam: Present: warm, intact, normal color ED Course Vital Signs 03/16/19 18:00 Temperature 98.1 F Pulse Rate 113 H Respiratory 22 Rate Blood Pressure 143/87 O2 Sat by Pulse 100 Oximetry ED Medical Decision Making - Lab Data Result diagrams: 03/16/19 18:12 03/16/19 18:12 - EKG Data -: EKG Interpreted by Ne EKG shows normal: sinus rhythm Rate: tachycardia - EKG Data Interpretation: no acute changes - Radiology Data Radiology results: report reviewed Chest x-ray is unremarkable. - Medical Decision Making Patient is 33 years old male morbidly obese, hypertension and possible diagnosis of diabetes. Patient presented to the ER via EMS for evaluation of confusion, unknown time of onset. Patient is moving all his extremities. Patient is answering yes and no for all questions. No family available. Then more history. Patient found to be in a DKA with anion gap of 26. Patient received normal saline and started on insulin drip. I discussed the patient is Dr. Odonnell, he agreed to admit the patient to intensive care unit for further management. Critical Care Time: Yes Critical care time in (mins) excluding proc time.: 30 Critical care attestation.: If time is entered above; I have spent that time in minutes in the direct care of this critically ill patient, excluding procedure time. ED Disposition Clinical Impression: Altered mental status, DKA (diabetic ketoacidoses) Disposition: DC-[id number] OP ADMIT IP TO THIS HOSP Is pt being admited?: Yes Condition: Stable Instructions: Diabetic Ketoacidosis (ED)
[2019-03-16 18:35] LABS: Basophils % (Auto) 0.3 % (0.0-1.8); Hematocrit 43.3 % (35.5-45.6); Hemoglobin 15.2 gm/dl (11.8-15.2); Lymphocytes # (Auto) 1.2 K/mm3 (1.2-5.4); Mean Corpuscular HGB Conc 35 % (32-34); Mean Corpuscular Volume 79 fl (84-94); Monocytes # (Auto) 0.9 K/mm3 (0.0-0.8); Monocytes % (Auto) 6.1 % (0.0-7.3); Platelet Count 174 K/mm3 (140-440); Red Cell Distribution Width 15.5 % (13.2-15.2)
[2019-03-16 18:50] LABS: Alanine Aminotransferase 48 units/L (7-56); Albumin 3.6 g/dL (3.9-5); BUN/Creatinine Ratio 8; Bilirubin,Direct 0.5 mg/dL (0-0.2); Blood Urea Nitrogen 11 mg/dL (9-20); Calcium 9.4 mg/dL (8.4-10.2); Hemolysis Index 1
--- NOTE | 2019-03-16 19:15 | XRay Report ---
CHEST 1 VIEW 03/16/2019 6:03 PM INDICATION / CLINICAL INFORMATION: AMS. COMPARISON: Chest x-ray 10/14/2018 FINDINGS: SUPPORT DEVICES: None. HEART / MEDIASTINUM: No significant abnormality. LUNGS / PLEURA: No significant pulmonary or pleural abnormality. No pneumothorax. ADDITIONAL FINDINGS: No significant additional findings. IMPRESSION: 1. No acute findings. Signer Name: Rosalio Hernandez MD Signed: 03/16/2019 7:11 PM Workstation Name: [id number]
[2019-03-16] MEDS ORDERED: D50W (25GM) Syringe IV PRN ×2 (19:32→20:05)
[2019-03-16] MEDS ORDERED: HumuLIN R 100 UNITS in NACL 0.9% 99 ML IV SCH (20:00)
[2019-03-16 20:45] LABS: BUN/Creatinine Ratio 8; Blood Urea Nitrogen 11 mg/dL (9-20); Calcium 9.1 mg/dL (8.4-10.2); Hemolysis Index 29
[2019-03-16 20:50] LABS: Bilirubin,Urine NEG (Negative); Blood,Urine SM (Negative); Color,Urine Yellow (Yellow); Mucus,Urine 1+ /HPF; Urobilinogen,Urine < 2.0 mg/dL (<2.0)
[2019-03-16] MEDS: HumaLOG SUB-Q SCH (21:30)
[2019-03-16] MEDS ORDERED: HumaLOG SUB-Q ONE (21:33)
--- NOTE | 2019-03-16 21:39 | History and Physical Report ---
History of Present Illness Date of examination: 03/16/19 Date of admission: 03/16/19 19:36 Chief complaint: altered mental status History of present illness: A 33-year-old -Algerian male with history of obesity, left lower extremity edema who presents to [facility] ED via EMS with complaints of altered mental status. Patient is unable to provide detailed history and history is taken from EMS report and medical records. Patient's last known normal is unknown at this time. He is able to move all extremities. He is able to answer yes no questions however when asked more detail questions he starts off by saying "Huh, well, like, ok, hmm, like, ok" and ends the phrase with a smile. Pt's mother called our facility and spoke with nurse. She told the nurse that her son returned from [place] on 03/14/19. He spent a total of 2.5 weeks there and told his mom he did a lot of walking and site seeing. Review of medical records shows patient was admitted and 2017 with similar complaints. At the time meningitis suspected and workup was completed, and a rolled towel. He was diagnosed and treated for sepsis secondary to left lower extremity cellulitis. Patient is new onset diabetes and hypertension. During his 2017 admission he had an A1c of 6.5 and he was normotensive. Past History Past Medical History: other (cellulitis left lower extremity, obesity) Past Surgical History: No surgical history Social history: single, Lives alone Family history: no significant family history Medications and Allergies Allergies Allergy/AdvReac Type Severity Reaction Status Date / Time No Known Allergies Allergy Unverified 12/23/13 09:40 Home Medications Medication Instructions Recorded Confirmed Last Taken Type Sulfamethoxazole/Trimethoprim 1 tab PO BID #14 tab 11/23/16 Unknown Rx [Bactrim 400-80 mg] Acetaminophen [Tylenol Arthritis] 650 mg PO Q6HR PRN #30 tablet.er 10/14/18 Unknown Rx Ibuprofen [Motrin] 600 mg PO Q8H PRN #30 tablet 10/14/18 Unknown Rx Active Meds: Active Medications Dextrose (D50w (25gm) Syringe) 50 ml IV PRN PRN PRN Reason: Hypoglycemia Enoxaparin Sodium (Lovenox) 40 mg SUB-Q QDAY AYANNA Sodium Chloride (Nacl 0.9% 1000 Ml) 1,000 mls @ 125 mls/hr IV DIRECT AYANNA Ampicillin Sodium/Sulbactam Sodium (Unasyn/Ns 1.5 Gm/50 Ml) 1.5 gm in 50 mls @ 100 mls/hr IV Q6HR AYANNA; Protocol Insulin Glargine (Lantus) 20 units SUB-Q QHS AYANNA Insulin Human Lispro (Humalog) 0 unit SUB-Q Q6HR AYANNA; Protocol Review of Systems ROS unobtainable: due to mental status Exam - Physical Exam Narrative exam: Physical exam General appearance: Present: No acute distress, awake, oriented 2, able to ans wer yes no questions, - EENT Eyes: Present: PERRL, EOM intact ENT: hearing intact, poor dentition - Neck Neck: Present: supple, normal ROM - Respiratory Respiratory effort: Non-labored Respiratory: bilateral: diminished (bases) - Cardiovascular Heart rate: 102 (bpm) Rhythm:st Heart Sounds: Present: S1 & S2. Absent: rub, click - Extremities Extremities: no ischemia, pulses intact, abnormal (right lower extremity swelling with redness and warmth to touch) - Peripheral Assessment Peripheral Pulses: within normal limits - Abdominal General gastrointestinal: Obese, soft, non-tender, normal bowel sounds - Integumentary Integumentary: Present: warm, dry - Musculoskeletal Musculoskeletal: Unsteady gait, able to move all extremities - Psychiatric Psychiatric: cooperative - Constitutional Vitals: Temp Pulse Resp BP Pulse Ox 98.3 F 112 H 20 152/104 98 03/16/19 19:38 03/16/19 21:15 03/16/19 21:15 03/16/19 21:15 03/16/19 21:15 Results - Labs CBC & Chem 7: 03/16/19 18:12 03/16/19 20:55 Labs: Laboratory Last Values WBC 15.3 K/mm3 (4.5-11.0) H 03/16/19 18:12 RBC 5.50 M/mm3 (3.65-5.03) H 03/16/19 18:12 Hgb 15.2 gm/dl (11.8-15.2) 03/16/19 18:12 Hct 43.3 % (35.5-45.6) 03/16/19 18:12 MCV 79 fl (84-94) L 03/16/19 18:12 MCH 28 pg (28-32) 03/16/19 18:12 MCHC 35 % (32-34) H 03/16/19 18:12 RDW 15.5 % (13.2-15.2) H 03/16/19 18:12 Plt Count 174 K/mm3 (140-440) 03/16/19 18:12 Lymph % (Auto) 8.0 % (13.4-35.0) L 03/16/19 18:12 [place] % (Auto) 6.1 % (0.0-7.3) 03/16/19 18:12 Eos % (Auto) 0.0 % (0.0-4.3) 03/16/19 18:12 Baso % (Auto) 0.3 % (0.0-1.8) 03/16/19 18:12 Lymph # 1.2 K/mm3 (1.2-5.4) 03/16/19 18:12 [place] # 0.9 K/mm3 (0.0-0.8) H 03/16/19 18:12 Eos # 0.0 K/mm3 (0.0-0.4) 03/16/19 18:12 Baso # 0.0 K/mm3 (0.0-0.1) 03/16/19 18:12 Seg Neutrophils % 85.6 % (40.0-70.0) H 03/16/19 18:12 Seg Neutrophils # 13.1 K/mm3 (1.8-7.7) H 03/16/19 18:12 Sodium 135 mmol/L (137-145) L 03/16/19 19:52 Potassium 3.8 mmol/L (3.6-5.0) 03/16/19 19:52 Chloride 98.5 mmol/L (98-107) 03/16/19 19:52 Carbon Dioxide 19 mmol/L (22-30) L 03/16/19 19:52 21 mmol/L 03/16/19 19:52 BUN 11 mg/dL (9-20) 03/16/19 19:52 1.3 mg/dL (0.8-1.5) 03/16/19 19:52 Estimated GFR > 60 ml/min 03/16/19 19:52 8 % 03/16/19 19:52 Glucose 330 mg/dL (75-100) H 03/16/19 19:52 POC Glucose 297 (70-105) H 03/16/19 21:31 11.2 % (4-6) H 03/16/19 18:12 Calcium 9.1 mg/dL (8.4-10.2) 03/16/19 19:52 Phosphorus 1.30 mg/dL (2.5-4.5) L 03/16/19 19:52 Magnesium 1.50 mg/dL (1.7-2.3) L 03/16/19 19:52 1.50 mg/dL (0.1-1.2) H 03/16/19 18:12 0.5 mg/dL (0-0.2) H 03/16/19 18:12 1.0 mg/dL 03/16/19 18:12 AST 34 units/L (5-40) 03/16/19 18:12 ALT 48 units/L (7-56) 03/16/19 18:12 91 units/L (35-129) 03/16/19 18:12 < 0.010 ng/mL (0.00-0.029) 03/16/19 18:12 8.1 g/dL (6.3-8.2) 03/16/19 18:12 3.6 g/dL (3.9-5) L 03/16/19 18:12 0.8 % 03/16/19 18:12 29 units/L (13-60) 03/16/19 18:12 Yellow (Yellow) 03/16/19 20:30 Clear (Clear) 03/16/19 20:30 5.0 (5.0-7.0) 03/16/19 20:30 Ur Specific [place] 1.028 (1.003-1.030) 03/16/19 20:30 30 mg/dl mg/dL (Negative) 03/16/19 20:30 >=500 mg/dL (Negative) 03/16/19 20:30 80 mg/dL (Negative) 03/16/19 20:30 Sm (Negative) 03/16/19 20:30 Neg (Negative) 03/16/19 20:30 Neg (Negative) 03/16/19 20:30 < 2.0 mg/dL (<2.0) 08/03/19 20:30 Ur Leukocyte Esterase Neg (Negative) 03/16/19 20:30 4.0 /HPF (0.0-6.0) 03/16/19 20:30 2.0 /HPF (0.0-6.0) 03/16/19 20:30 1+ /HPF 03/16/19 20:30 - Imaging and Cardiology EKG: image reviewed (102 bpm , ST) Chest x-ray: report reviewed (LUNGS / PLEURA: No significant pulmonary or pleural abnormality. No pneumothorax. ), image reviewed CT Scan - head: report reviewed (IMPRESSION: No acute intracranial abnormality. ), image reviewed Imaging and Cardiology: Right lower extremity Doppler pending Assessment and Plan Assessment and plan: A 33-year-old -Algerian male with history of obesity, left lower extremity edema who presents to [facility] ED via EMS with complaints of altered mental status. Patient recently traveled to [place] for two and half weeks and returned on 03/14/2019. He is unable to provide history or details of his trip. Acute encephalopathy -Likely metabolic -Neuro checks -Continue supportive care -PT/OT consult pending -CXR unrevealing for acute abnormalities -CT Head negative for acute intracranial abnormalities Right lower extremity cellulitis -Swelling of right lower extremity with warmth and red discoloration -Denies pain -Right lower extremity Doppler pending to rule out DVT -Start on Lovenon 1mg/kg BID, will d/c if doppler is negative -Started on Unasyn -Will consider ID consult and additional antibiotic coverage pending culture res ults and Doppler SIRS -Likely secondary to right lower extremity cellulitis -Leukocytosis, WBC 15.0 -Tachycardiac with heart rate 102-110 -Hydrate with IVF -Continue to Monitor CBC Hyperglycemia/hyperosmolar non-ketosis -Newly diagnosed diabetes -BG on admission 330 -POC BG Monitoring -HgbA1C 11.2 -SSI and scheduled Lantus Hypertension -New diagnosis -Elevated BP 152/104 -Continue to monitor BP -IV hydralazine when necessary -Start Norvasc 5 mg daily Obesity -BMI 45.3 -Diet and lifestyle changes -May benefit from outpatient weight management program DVT PPX -on Lovenox Hx of lower extremity cellulitis -Diagnosed and treated in 2017 Advance Directives: No VTE prophylaxis?: Chemical Plan of care discussed with patient/family: Yes
[2019-03-16 21:54] LABS: BUN/Creatinine Ratio 8; Blood Urea Nitrogen 10 mg/dL (9-20); Calcium 9.1 mg/dL (8.4-10.2); Hemolysis Index 29
--- NOTE | 2019-03-16 22:15 | Cat Scan Report ---
CT HEAD WITHOUT CONTRAST INDICATION / CLINICAL INFORMATION: AMS. TECHNIQUE: All CT scans at this location are performed using CT dose reduction for ALARA by means of automated e xposure control. COMPARISON: Head CT 11/18/2016 FINDINGS: HEMORRHAGE: None. EXTRA-AXIAL SPACES: Normal in size and morphology for the patient's age. VENTRICULAR SYSTEM: Normal in size and morphology for the patient's age. CEREBRAL PARENCHYMA: No significant abnormality. No acute territorial infarct. MIDLINE SHIFT OR HERNIATION: None. CEREBELLUM / BRAINSTEM: No significant abnormality. ORBITS: Normal as visualized. SOFT TISSUES of HEAD: No significant abnormality. CALVARIUM: No significant abnormality. PARANASAL SINUSES / MASTOID AIR CELLS: Normal as visualized. ADDITIONAL FINDINGS: None. IMPRESSION: 1. No acute intracranial abnormality. Signer Name: Rosalio Hernandez MD Signed: 03/16/2019 10:11 PM Workstation Name: [id number]
[2019-03-16] MEDS ORDERED: APRESOLINE IV PRN (22:18)
[2019-03-16] MEDS ORDERED: K-DUR PO ONE (22:20)
[2019-03-16] MEDS ORDERED: NORVASC PO ONE (22:41)
[2019-03-16] MEDS: LANTUS SUB-Q SCH (22:55)
[2019-03-16] MEDS ORDERED: LOVENOX SUB-Q SCH (23:00)
[2019-03-16] MEDS: LOVENOX SUB-Q SCH (23:41)
[2019-03-16] MEDS: UNASYN/NS 1.5 GM/50 ML 1.5 GM/50 ML BAG IV SCH (23:57)
[2019-03-16] MEDS: NACL 0.9% 1000 ML 1,000 ML IV SCH (23:58)
[2019-03-17] MEDS ORDERED: TYLENOL PO PRN (00:43)
[2019-03-17] MEDS: HumaLOG SUB-Q SCH ×4 (00:45→17:34)
[2019-03-17 01:39] LABS: BUN/Creatinine Ratio 10; Blood Urea Nitrogen 10 mg/dL (9-20); Calcium 9.1 mg/dL (8.4-10.2); Hemolysis Index 62
[2019-03-17 05:52] LABS: Basophils % (Auto) 0.2 % (0.0-1.8); Hematocrit 40.7 % (35.5-45.6); Hemoglobin 14.3 gm/dl (11.8-15.2); Lymphocytes # (Auto) 1.3 K/mm3 (1.2-5.4); Lymphocytes % (Auto) 9.2 % (13.4-35.0); Mean Corpuscular HGB Conc 35 % (32-34); Mean Corpuscular Volume 79 fl (84-94); Monocytes # (Auto) 1.3 K/mm3 (0.0-0.8); Platelet Count 176 K/mm3 (140-440); Red Blood Count 5.15 M/mm3 (3.65-5.03); Red Cell Distribution Width 15.6 % (13.2-15.2)
[2019-03-17] MEDS: UNASYN/NS 1.5 GM/50 ML 1.5 GM/50 ML BAG IV SCH ×2 (06:52→12:35)
[2019-03-17] MEDS: LOVENOX SUB-Q SCH (09:50)
[2019-03-17] MEDS: NACL 0.9% 1000 ML 1,000 ML IV SCH (09:52)
[2019-03-17] MEDS ORDERED: NORVASC PO SCH (10:00)
[2019-03-17] MEDS ORDERED: LOVENOX SUB-Q SCH (10:00)
--- NOTE | 2019-03-17 10:48 | Vascular Lab Report ---
DUPLEX DOPPLER LOWER EXTREMITY VEINS, RIGHT INDICATION / CLINICAL INFORMATION: RLE edema and warmth. TECHNIQUE: Duplex doppler imaging was performed through the veins of the right lower extremity using venous comp ression and other maneuvers. COMPARISON: None available. FINDINGS: COMMON FEMORAL VEIN: Negative. FEMORAL VEIN: Negative. POPLITEAL VEIN: Negative. CALF VEINS: Negative. ADDITIONAL FINDINGS: None. IMPRESSION: 1. No sonographic evidence for DVT in the right lower extremity. Signer Name: Rosalio Hernandez MD Signed: 03/17/2019 10:44 AM Workstation Name: [id number]
[2019-03-17 11:50] LABS: BUN/Creatinine Ratio 9; Blood Urea Nitrogen 8 mg/dL (9-20); Calcium 9.2 mg/dL (8.4-10.2); Hemolysis Index 6
--- NOTE | 2019-03-17 13:18 | Progress Note ---
Assessment and Plan Assessment and plan: Patient is a 33-year-old -Swazi man with history of obesity, left lower extremity edema who presents to [facility] ED via EMS with complaints of altered mental status. Patient recently traveled to [place] for two and half weeks and returned on 03/14/2019. He is unable to provide history or details of his trip. Acute encephalopathy -Likely metabolic -Neuro checks -Continue supportive care -PT/OT consult pending -CXR unrevealing for acute abnormalities -CT Head negative for acute intra-cranial abnormalities Right lower extremity cellulitis -Swelling of right lower extremity with warmth and red discoloration -Denies pain -Right lower extremity Doppler pending to rule out DVT -Start on Lovenon 1mg/kg BID, will d/c if doppler is negative -Started on Unasyn -Will consider ID consult and additional antibiotic coverage pending culture results and Doppler which is negative Sepsis, poa -Likely secondary to right lower extremity cellulitis -Leukocytosis, WBC 15.0 -Tachycardiac with heart rate 102-110 -Hydrate with IVF -Continue to Monitor CBC -ID consulted Hyperglycemia/hyperosmolar non-ketosis -Newly diagnosed diabetes -BG on admission 330 -POC BG Monitoring -HgbA1C 11.2 -SSI and scheduled Lantus Hypertension -New diagnosis -Elevated BP 152/104 -Continue to monitor BP -IV hydralazine when necessary -Start Norvasc 5 mg daily Obesity -BMI 45.3 -Diet and lifestyle changes -May benefit from outpatient weight management program DVT PPX -on Lovenox Hx of lower extremity cellulitis -Diagnosed and treated in 2017 Advance Directives: No VTE prophylaxis?: Chemical Plan of care discussed with patient/family: Yes History Interval history: Patient was seen and examined. Follow-up on current diagnosis. No overnight events reported to me. Patient denies any chest pain, shortness breath, nausea/vomiting or severe headaches. Imaging, nursing note, chart, labs and old chart reviewed. Discussed with patient. Hospitalist Physical - Physical exam Narrative exam: Gen: WDWN, NAD, Awake, Alert, Orientated HEENT: NCAT, EOMI, PERRL, OP Clear Neck: supple, no adenopathy, no thyromegaly, no JVD CVS/Heart: RRR, normal S1S2, pulses present bilaterally Chest/Lungs: CTA B, Symmetrical chest expansion, good air entry bilaterally GI/Abdomen: soft, NTND, good bowel sounds, no guarding or rebound /Bladder: no suprapubic tenderness, no CVA or paraspinal tenderness Extermity/Skin: no c/c/e, no obvious rash, right > left leg MSK: FROM x 4 Neuro: CN 2-12 grossly intact, no new focal deficits Psych: calm - Constitutional Vitals: Temp Pulse Resp BP Pulse Ox 97.9 F 101 H 19 160/112 99 03/17/19 12:22 03/17/19 12:35 03/17/19 12:22 03/17/19 12:35 03/17/19 09:00 Results - Labs CBC & Chem 7: 03/17/19 05:25 03/17/19 11:19 Labs: Laboratory Last Values WBC 14.2 K/mm3 (4.5-11.0) H 03/17/19 05:25 RBC 5.15 M/mm3 (3.65-5.03) H 03/17/19 05:25 Hgb 14.3 gm/dl (11.8-15.2) 03/17/19 05:25 Hct 40.7 % (35.5-45.6) 03/17/19 05:25 MCV 79 fl (84-94) L 03/17/19 05:25 MCH 28 pg (28-32) 03/17/19 05:25 MCHC 35 % (32-34) H 03/17/19 05:25 RDW 15.6 % (13.2-15.2) H 03/17/19 05:25 Plt Count 176 K/mm3 (140-440) 03/17/19 05:25 Lymph % (Auto) 9.2 % (13.4-35.0) L 03/17/19 05:25 [place] % (Auto) 9.0 % (0.0-7.3) H 03/17/19 05:25 Eos % (Auto) 0.0 % (0.0-4.3) 03/17/19 05:25 Baso % (Auto) 0.2 % (0.0-1.8) 03/17/19 05:25 Lymph # 1.3 K/mm3 (1.2-5.4) 03/17/19 05:25 [place] # 1.3 K/mm3 (0.0-0.8) H 03/17/19 05:25 Eos # 0.0 K/mm3 (0.0-0.4) 03/17/19 05:25 Baso # 0.0 K/mm3 (0.0-0.1) 03/17/19 05:25 Seg Neutrophils % 81.6 % (40.0-70.0) H 03/17/19 05:25 Seg Neutrophils # 11.6 K/mm3 (1.8-7.7) H 03/17/19 05:25 POC ABG pH 7.453 (7.35-7.45) H 03/16/19 22:02 POC ABG pO2 74 (80-105) L 03/16/19 22:02 POC ABG HCO3 15.8 (22-26 mml/L) 03/16/19 22:02 POC ABG Total CO2 16 (23-27mmol/L) 03/16/19 22:02 POC ABG O2 Sat 96 03/16/19 22:02 POC ABG Base Excess -8 ((-2) - (+3)mmol/L) 03/16/19 22:02 21 % 03/16/19 22:02 Sodium 137 mmol/L (137-145) 03/17/19 11:19 Potassium 3.5 mmol/L (3.6-5.0) L 03/17/19 11:19 Chloride 100.8 mmol/L (98-107) 03/17/19 11:19 Carbon Dioxide 19 mmol/L (22-30) L 03/17/19 11:19 21 mmol/L 03/17/19 11:19 BUN 8 mg/dL (9-20) L 03/17/19 11:19 0.9 mg/dL (0.8-1.5) 03/17/19 11:19 Estimated GFR > 60 ml/min 03/17/19 11:19 9 % 03/17/19 11:19 Glucose 279 mg/dL (75-100) H 03/17/19 11:19 POC Glucose 263 (70-105) H 03/17/19 11:49 11.2 % (4-6) H 03/16/19 18:12 Calcium 9.2 mg/dL (8.4-10.2) 03/17/19 11:19 Phosphorus 1.30 mg/dL (2.5-4.5) L 03/16/19 19:52 Magnesium 1.50 mg/dL (1.7-2.3) L 03/16/19 19:52 1.50 mg/dL (0.1-1.2) H 03/16/19 18:12 0.5 mg/dL (0-0.2) H 03/16/19 18:12 1.0 mg/dL 03/16/19 18:12 AST 34 units/L (5-40) 03/16/19 18:12 ALT 48 units/L (7-56) 03/16/19 18:12 91 units/L (35-129) 03/16/19 18:12 < 0.010 ng/mL (0.00-0.029) 03/16/19 18:12 8.1 g/dL (6.3-8.2) 03/16/19 18:12 3.6 g/dL (3.9-5) L 03/16/19 18:12 0.8 % 03/16/19 18:12 29 units/L (13-60) 03/16/19 18:12 Yellow (Yellow) 03/16/19 20:30 Clear (Clear) 03/16/19 20:30 5.0 (5.0-7.0) 03/16/19 20:30 Ur Specific [place] 1.028 (1.003-1.030) 03/16/19 20:30 30 mg/dl mg/dL (Negative) 03/16/19 20:30 >=500 mg/dL (Negative) 03/16/19 20:30 80 mg/dL (Negative) 03/16/19 20:30 Sm (Negative) 03/16/19 20:30 Neg (Negative) 03/16/19 20:30 Neg (Negative) 03/16/19 20:30 < 2.0 mg/dL (<2.0) 03/16/19 20:30 Ur Leukocyte Esterase Neg (Negative) 03/16/19 20:30 4.0 /HPF (0.0-6.0) 03/16/19 20:30 2.0 /HPF (0.0-6.0) 03/16/19 20:30 1+ /HPF 03/16/19 20:30 Active Medications - Current Medications Current Medications: Generic Name Dose Route Start Last Admin Trade Name Freq PRN Reason Stop Dose Admin Acetaminophen 650 mg 03/17/19 00:43 03/17/19 01:09 Tylenol PO 650 mg Q4H PRN Administration Pain, Mild (1-3) Amlodipine Besylate 5 mg 03/17/19 10:00 03/17/19 09:48 Norvasc PO 5 mg QDAY AYANNA Administration Dextrose 50 ml 03/16/19 20:05 D50w (25gm) Syringe IV PRN PRN Hypoglycemia Enoxaparin Sodium 140 mg 03/16/19 23:00 03/17/19 09:50 Lovenox 1 mg/kg (140 mg) 140 mg SUB-Q Administration Q12HR AYANNA Hydralazine HCl 10 mg 03/16/19 22:18 03/17/19 12:35 Apresoline IV 10 mg Q4HR PRN Administration Blood Pressure Sodium Chloride 1,000 mls @ 125 mls/hr 03/16/19 21:00 03/17/19 09:52 Nacl 0.9% 1000 Ml IV 125 mls/hr DIRECT AYANNA Administration Ampicillin Sodium/Sulbactam Sodium 1.5 gm in 50 mls @ 100 mls/hr 03/17/19 00:00 03/17/19 12:35 Unasyn/Ns 1.5 Gm/50 Ml IV 100 mls/hr Q6HR AYANNA Administration Protocol Insulin Glargine 20 units 03/16/19 22:00 03/16/19 22:55 Lantus SUB-Q 20 units QHS AYANNA Administration Insulin Human Lispro 0 unit 03/16/19 21:00 03/17/19 12:35 Humalog SUB-Q 6 unit Q6HR AYANNA Administration Protocol
[2019-03-17] MEDS ORDERED: K-DUR PO ONE (13:23)
[2019-03-17] MEDS ORDERED: NORMODYNE IV PRN (13:27)
[2019-03-17] MEDS ORDERED: MAGNESIUM SULFATE 2GM/50ML 2 GM/50 ML BAG IV ONE (14:00)
--- NOTE | 2019-03-17 16:03 | Consultation ---
History of Present Illness - Reason for Consult Consult date: 03/17/19 Sepsis, AMS Requesting physician: SAPNA HENRIQUEZ - History of Present Illness The patient is a 33-year-old male with no significant past medical history other than obesity presented to the emergency room on 03/16/2019 with altered mental status. He was apparently not answering questions appropriately. He was noted to have a fever of 101.7F and leukocytosis. Due to concerns for sepsis, he was s tarted on empiric antibiotics and infectious diseases was consulted. Today, he has been afebrile. He is able to answer most questions but is unable to tell me the exact date. He denies any cough or shortness of breath. Denies any nausea, vomiting or diarrhea. Denies any chest pain. Denies any urinary burning. Of note, he was also noted to be hyperglycemic on admission. 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 On his way back, he stayed for one day in [place] with a friend and then returned to [place] just the day prior to coming in here. He does not recall what prompted his mother and aunt to call the EMS. Upon further questioning, he denies any MSM behavior. He does admit to using recreational drugs while he was in [place]. Has never been tested for HIV in the past. No h/o tick bite / mosquito bite. Review of Systems: General: no fevers,chills or rigors currently HEENT: no new visual disturbance Respiratory: No cough, sputum, hemoptysis or shortness of breath Cardiovascular: No chest pain, syncope Gastrointestinal: No nausea, vomiting or diarrhea Genitourinary: No dysuria or hematuria Musculoskeletal: No new or worsening neck pain or back pain Neurologic: No headaches, seizures Hematologic: No easy bruising or bleeding Endocrine: No night sweats or acute weight loss Skin: negative for rash, jaundice Psychiatric: No suicidal or homicidal ideation Past History Past Medical History: other (cellulitis left lower extremity, obesity) Past Surgical History: No surgical history Social history: single, Lives alone Family history: no significant family history Medications and Allergies Allergies Allergy/AdvReac Type Severity Reaction Status Date / Time No Known Allergies Allergy Unverified 12/23/13 09:40 Home Medications Medication Instructions Recorded Confirmed Last Taken Type Sulfamethoxazole/Trimethoprim 1 tab PO BID #14 tab 11/23/16 03/17/19 Unknown Rx [Bactrim 400-80 mg] Acetaminophen [Tylenol Arthritis] 650 mg PO Q6HR PRN #30 tablet.er 10/14/18 03/17/19 Unknown Rx Ibuprofen [Motrin] 600 mg PO Q8H PRN #30 tablet 10/14/18 03/17/19 Unknown Rx Active Meds: Active Medications Acetaminophen (Tylenol) 650 mg PO Q4H PRN PRN Reason: Pain, Mild (1-3) Last Admin: 03/17/19 01:09 Dose: 650 mg Documented by: Amlodipine Besylate (Norvasc) 10 mg PO QDAY AYANNA Dextrose (D50w (25gm) Syringe) 50 ml IV PRN PRN PRN Reason: Hypoglycemia Hydralazine HCl (Apresoline) 10 mg IV Q4HR PRN PRN Reason: Blood Pressure Last Admin: 03/17/19 12:35 Dose: 10 mg Documented by: Sodium Chloride (Nacl 0.9% 1000 Ml) 1,000 mls @ 75 mls/hr IV DIRECT AYANNA Last Admin: 03/17/19 09:52 Dose: 125 mls/hr Documented by: Ampicillin Sodium/Sulbactam Sodium (Unasyn/Ns 1.5 Gm/50 Ml) 1.5 gm in 50 mls @ 100 mls/hr IV Q6HR AYANNA; Protocol Last Admin: 03/17/19 12:35 Dose: 100 mls/hr Documented by: Insulin Glargine (Lantus) 20 units SUB-Q QHS AYANNA Last Admin: 03/16/19 22:55 Dose: 20 units Documented by: Insulin Human Lispro (Humalog) 0 unit SUB-Q Q6HR AYANAN; Protocol Last Admin: 03/17/19 12:35 Dose: 6 unit Documented by: Labetalol HCl (Normodyne) 10 mg IV Q4H PRN PRN Reason: Blood Pressure Physical Examination - Physical Exam Narrative exam: Physical Exam: Constitutional: Alert, cooperative. No acute distress. Obese. Head, Ears, Nose: Normocephalic, atraumatic. External ears, nose normal Eyes: Conjunctivae/corneas clear. No icterus. No ptosis. Neck: Supple, no meningeal signs Oral: dentition fair, no thrush Cardiovascular: S1, S2 normal. Respiratory: Good air entry, clear to auscultation bilaterally GI: Soft, non-tender; bowel sounds normal. No peritoneal signs Musculoskeletal: RLE with swelling, redness and warmth and slight tenderness. Skin: No rash or abscess Hem/Lymphatic: No palpable cervical or supraclavicular nodes. No lymphangitis Psych: Mood ok. Affect normal Neurological: Awake, alert, oriented to place and person. No gross abnormality - Constitutional Vitals: Vital Signs Temp Pulse Resp BP Pulse Ox 97.9 F 101 H 19 160/112 99 03/17/19 12:22 03/17/19 12:35 03/17/19 12:22 03/17/19 12:35 03/17/19 09:00 Temperature -Last 24 Hours Temperature 97.9 F Temperature 98.2 F Temperature 98.8 F Temperature 101.7 F Temperature 99.8 F Temperature 98.3 F Temperature 98.1 F Results - Labs CBC & Chem 7: 03/17/19 05:25 03/17/19 11:19 Labs: Abnormal lab results 03/16/19 03/16/19 03/16/19 Range/Units 18:00 18:12 18:12 WBC 15.3 H (4.5-11.0) K/mm3 RBC 5.50 H (3.65-5.03) M/mm3 MCV 79 L (84-94) fl MCHC 35 H (32-34) % RDW 15.5 H (13.2-15.2) % Lymph % (Auto) 8.0 L (13.4-35.0) % [place] % (Auto) (0.0-7.3) % [place] # 0.9 H (0.0-0.8) K/mm3 Seg Neutrophils % 85.6 H (40.0-70.0) % Seg Neutrophils # 13.1 H (1.8-7.7) K/mm3 POC ABG pH (7.35-7.45) POC ABG pO2 (80-105) Sodium 135 L (137-145) mmol/L Potassium 3.5 L (3.6-5.0) mmol/L Chloride 96.3 L (98-107) mmol/L Carbon Dioxide 16 L (22-30) mmol/L BUN (9-20) mg/dL Glucose 360 H (75-100) mg/dL POC Glucose 301 H (70-105) Hemoglobin A1c (4-6) % Phosphorus (2.5-4.5) mg/dL Magnesium (1.7-2.3) mg/dL Total Bilirubin 1.50 H (0.1-1.2) mg/dL Direct Bilirubin 0.5 H (0-0.2) mg/dL Albumin 3.6 L (3.9-5) g/dL 03/16/19 03/16/19 03/16/19 Range/Units 18:12 19:49 19:52 WBC (4.5-11.0) K/mm3 RBC (3.65-5.03) M/mm3 MCV (84-94) fl MCHC (32-34) % RDW (13.2-15.2) % Lymph % (Auto) (13.4-35.0) % [place] % (Auto) (0.0-7.3) % [place] # (0.0-0.8) K/mm3 Seg Neutrophils % (40.0-70.0) % Seg Neutrophils # (1.8-7.7) K/mm3 POC ABG pH (7.35-7.45) POC ABG pO2 (80-105) Sodium (137-145) mmol/L Potassium (3.6-5.0) mmol/L Chloride (98-107) mmol/L Carbon Dioxide (22-30) mmol/L BUN (9-20) mg/dL Glucose (75-100) mg/dL POC Glucose 290 H (70-105) Hemoglobin A1c 11.2 H (4-6) % Phosphorus 1.30 L (2.5-4.5) mg/dL Magnesium 1.50 L (1.7-2.3) mg/dL Total Bilirubin (0.1-1.2) mg/dL Direct Bilirubin (0-0.2) mg/dL Albumin (3.9-5) g/dL 03/16/19 03/16/19 03/16/19 Range/Units 19:52 20:55 21:31 WBC (4.5-11.0) K/mm3 RBC (3.65-5.03) M/mm3 MCV (84-94) fl MCHC (32-34) % RDW (13.2-15.2) % Lymph % (Auto) (13.4-35.0) % [place] % (Auto) (0.0-7.3) % [place] # (0.0-0.8) K/mm3 Seg Neutrophils % (40.0-70.0) % Seg Neutrophils # (1.8-7.7) K/mm3 POC ABG pH (7.35-7.45) POC ABG pO2 (80-105) Sodium 135 L 134 L (137-145) mmol/L Potassium 3.4 L (3.6-5.0) mmol/L Chloride 97.4 L (98-107) mmol/L Carbon Dioxide 19 L 16 L (22-30) mmol/L BUN (9-20) mg/dL Glucose 330 H 333 H (75-100) mg/dL POC Glucose 297 H (70-105) Hemoglobin A1c (4-6) % Phosphorus (2.5-4.5) mg/dL Magnesium (1.7-2.3) mg/dL Total Bilirubin (0.1-1.2) mg/dL Direct Bilirubin (0-0.2) mg/dL Albumin (3.9-5) g/dL 03/16/19 03/16/19 03/17/19 Range/Units 22:02 22:14 00:39 WBC (4.5-11.0) K/mm3 RBC (3.65-5.03) M/mm3 MCV (84-94) fl MCHC (32-34) % RDW (13.2-15.2) % Lymph % (Auto) (13.4-35.0) % [place] % (Auto) (0.0-7.3) % [place] # (0.0-0.8) K/mm3 Seg Neutrophils % (40.0-70.0) % Seg Neutrophils # (1.8-7.7) K/mm3 POC ABG pH 7.453 H (7.35-7.45) POC ABG pO2 74 L (80-105) Sodium (137-145) mmol/L Potassium (3.6-5.0) mmol/L Chloride (98-107) mmol/L Carbon Dioxide (22-30) mmol/L BUN (9-20) mg/dL Glucose (75-100) mg/dL POC Glucose 299 H 302 H (70-105) Hemoglobin A1c (4-6) % Phosphorus (2.5-4.5) mg/dL Magnesium (1.7-2.3) mg/dL Total Bilirubin (0.1-1.2) mg/dL Direct Bilirubin (0-0.2) mg/dL Albumin (3.9-5) g/dL 03/17/19 03/17/19 03/17/19 Range/Units 01:02 05:25 06:37 WBC 14.2 H (4.5-11.0) K/mm3 RBC 5.15 H (3.65-5.03) M/mm3 MCV 79 L (84-94) fl MCHC 35 H (32-34) % RDW 15.6 H (13.2-15.2) % Lymph % (Auto) 9.2 L (13.4-35.0) % [place] % (Auto) 9.0 H (0.0-7.3) % [place] # 1.3 H (0.0-0.8) K/mm3 Seg Neutrophils % 81.6 H (40.0-70.0) % Seg Neutrophils # 11.6 H (1.8-7.7) K/mm3 POC ABG pH (7.35-7.45) POC ABG pO2 (80-105) Sodium 136 L (137-145) mmol/L Potassium (3.6-5.0) mmol/L Chloride (98-107) mmol/L Carbon Dioxide 19 L (22-30) mmol/L BUN (9-20) mg/dL Glucose 322 H (75-100) mg/dL POC Glucose 242 H (70-105) Hemoglobin A1c (4-6) % Phosphorus (2.5-4.5) mg/dL Magnesium (1.7-2.3) mg/dL Total Bilirubin (0.1-1.2) mg/dL Direct Bilirubin (0-0.2) mg/dL Albumin (3.9-5) g/dL 03/17/19 03/17/19 Range/Units :19 11:49 WBC (4.5-11.0) K/mm3 RBC (3.65-5.03) M/mm3 MCV (84-94) fl MCHC (32-34) % RDW (13.2-15.2) % Lymph % (Auto) (13.4-35.0) % [place] % (Auto) (0.0-7.3) % [place] # (0.0-0.8) K/mm3 Seg Neutrophils % (40.0-70.0) % Seg Neutrophils # (1.8-7.7) K/mm3 POC ABG pH (7.35-7.45) POC ABG pO2 (80-105) Sodium (137-145) mmol/L Potassium 3.5 L (3.6-5.0) mmol/L Chloride (98-107) mmol/L Carbon Dioxide 19 L (22-30) mmol/L BUN 8 L (9-20) mg/dL Glucose 279 H (75-100) mg/dL POC Glucose 263 H (70-105) Hemoglobin A1c (4-6) % Phosphorus (2.5-4.5) mg/dL Magnesium (1.7-2.3) mg/dL Total Bilirubin (0.1-1.2) mg/dL Direct Bilirubin (0-0.2) mg/dL Albumin (3.9-5) g/dL - Imaging and Cardiology Chest x-ray: report reviewed, image reviewed (Chest x-ray shows no evidence of pneumonia) CT Scan - head: report reviewed, image reviewed (CT head shows no acute intracranial abnormality) Assessment and Plan Cultures: 03/16/2019 and blood culture: In process A/P: 33/M with obesity with: 1) Sepsis, etiology is probably right lower extremity cellulitis: Right lower extremity is swollen, warm and slightly tender. No open wounds / abscess. Cover for beta-hemolytic strep species. DVT scan negative. 2) Altered mental status/acute encephalopathy: ?drug related v/s infection. Meningitis / encephalitis unlikely. 3) DM and HTN: per IMS. Recs: Switched antibiotics to IV cefazolin to cover for right lower extremity celluli tis Meningitis or encephalitis seems unlikely Urinary tox screen ordered given patient's history of drug use HIV test ordered, verbal consent obtained from patient Monitor CBC and fever Dr. Jayjay england tomorrow. Yolanda Elias MD, FACP [facility] ([facility] C: [phone] O: [phone] F: [phone]
[2019-03-17] MEDS: ceFAZolin 2 GM in NACL 0.9% 100 ML IV SCH (17:34)
[2019-03-17] MEDS: LANTUS SUB-Q SCH (21:54)
[2019-03-18] MEDS: ceFAZolin 2 GM in NACL 0.9% 100 ML IV SCH ×3 (00:41→17:42)
[2019-03-18] MEDS: HumaLOG SUB-Q SCH ×5 (00:42→22:20)
[2019-03-18 03:38] LABS: Hemoglobin 13.4 gm/dl (11.8-15.2); Mean Corpuscular HGB Conc 35 % (32-34); Mean Corpuscular Volume 79 fl (84-94); Platelet Count 178 K/mm3 (140-440); Red Blood Count 4.84 M/mm3 (3.65-5.03); Red Cell Distribution Width 15.7 % (13.2-15.2)
[2019-03-18 03:59] LABS: Amphetamine Screen,Urine PRESUMPTIVE NEGATIVE; Benzodiazepines Screen,Urine PRESUMPTIVE NEGATIVE; Cannabinoid Screen,Urine PRESUMPTIVE NEGATIVE; Cocaine Screen,Urine PRESUMPTIVE NEGATIVE; Methadone Screen,Urine PRESUMPTIVE NEGATIVE; Opiate Screen,Urine PRESUMPTIVE NEGATIVE
[2019-03-18 04:35] LABS: BUN/Creatinine Ratio 9; Blood Urea Nitrogen 7 mg/dL (9-20); Calcium 8.6 mg/dL (8.4-10.2); Hemolysis Index 4
[2019-03-18] MEDS: NORVASC PO SCH (09:35)
--- NOTE | 2019-03-18 09:58 | Progress Note ---
Assessment and Plan Cultures: 03/16/2019 and blood culture: In process A/P: 33/M with obesity with: 1) Sepsis; Improved. No fever in > 24 hours . etiology is probably right lower extremity cellulitis: Right lower extremity is swollen, warm and slightly tender. No open wounds / abscess. Cover for beta-hemolytic strep species. DVT scan negative. HIV negative 2) Altered mental status/acute encephalopathy: Resolved. Meningitis / encephalitis unlikely. UDS negative. 3) DM and HTN: per IMS. Recs: Continue cefazolin 2 Gms IV every 8 hours, to cover for right lower extremity cellulitis, D2 When clinically stable anticipate discharge on Keflex 500mg PO QID for total 2 weeks ending 03-31-19 [facility] M: [phone] O:[phone] Subjective Date of service: 03/18/19 Interval history: Patient seen and examined, sitting up on the side of the bed. Right lower extremity improving, able to ambulate better. No fevers . Objective - Exam Narrative Exam: Constitutional: Alert, cooperative. No acute distress. Obese. Head, Ears, Nose: Normocephalic, atraumatic. External ears, nose normal Eyes: Conjunctivae/corneas clear. No icterus. No ptosis. Neck: Supple, no meningeal signs Oral: dentition fair, no thrush Cardiovascular: S1, S2 normal. Respiratory: Good air entry, clear to auscultation bilaterally GI: Soft, non-tender; bowel sounds normal. No peritoneal signs Musculoskeletal: RLE with swelling, redness and warmth and slight tenderness improving. Skin: No rash or abscess Hem/Lymphatic: No palpable cervical or supraclavicular nodes. No lymphangitis Psych: Mood ok. Affect normal Neurological: Awake, alert, oriented to place and person. No gross abnormality - Constitutional Vitals: Vital Signs Temp Pulse Resp BP Pulse Ox 99.7 F H 97 H 18 114/94 99 03/18/19 08:20 03/18/19 09:35 03/18/19 08:20 03/18/19 09:35 03/18/19 08:20 Temperature -Last 24 Hours Temperature 99.7 F Temperature 98.1 F Temperature 98.3 F Temperature 98.2 F Temperature 99.6 F Temperature 97.9 F - Labs CBC & Chem 7: 03/18/19 03:26 03/18/19 03:26 Labs: Abnormal lab results 03/17/19 03/17/19 03/17/19 Range/Units 11:19 11:49 16:48 MCV (84-94) fl MCHC (32-34) % RDW (13.2-15.2) % Sodium (137-145) mmol/L Potassium 3.5 L (3.6-5.0) mmol/L Carbon Dioxide 19 L (22-30) mmol/L BUN 8 L (9-20) mg/dL Glucose 279 H (75-100) mg/dL POC Glucose 263 H 254 H (70-105) 03/18/19 03/18/19 03/18/19 Range/Units 00:30 03:26 03:26 MCV 79 L (84-94) fl MCHC 35 H (32-34) % RDW 15.7 H (13.2-15.2) % Sodium 136 L (137-145) mmol/L Potassium (3.6-5.0) mmol/L Carbon Dioxide (22-30) mmol/L BUN 7 L (9-20) mg/dL Glucose 263 H (75-100) mg/dL POC Glucose 275 H (70-105) 03/18/19 Range/Units 07:23 MCV (84-94) fl MCHC (32-34) % RDW (13.2-15.2) % Sodium (137-145) mmol/L Potassium (3.6-5.0) mmol/L Carbon Dioxide (22-30) mmol/L BUN (9-20) mg/dL Glucose (75-100) mg/dL POC Glucose 224 H (70-105)
--- NOTE | 2019-03-18 11:17 | Progress Note ---
Assessment and Plan Assessment and plan: Patient is a 33-year-old -[place] man with history of obesity, left lower extremity edema who presents to [facility] ED via EMS with complaints of altered mental status. Patient recently traveled to [place] for two and half weeks and returned on 03/14/2019. He was unable to provide history or details of his trip, now he is much better. He does admit to using recreational drugs while he was in [place].. He went to [facility] then here Acute encephalopathy -Likely metabolic -Neuro checks -Continue supportive care -PT/OT consult pending -CXR unrevealing for acute abnormalities -CT Head negative for acute intra-cranial abnormalities Right lower extremity cellulitis -Swelling of right lower extremity with warmth and red discoloration -Denies pain -Right lower extremity Doppler pending to rule out DVT -Start on Lovenon 1mg/kg BID, will d/c if doppler is negative -Started on Unasyn -Will consider ID consult and additional antibiotic coverage pending culture results and Doppler which is negative Sepsis, poa -Likely secondary to right lower extremity cellulitis (he does have a healed cut on right [place] area) -Leukocytosis, WBC 15.0 -Tachycardiac with heart rate 102-110 -Hydrate with IVF -Continue to Monitor CBC -ID consulted Hyperglycemia/hyperosmolar non-ketosis -Newly diagnosed diabetes -BG on admission 330 -POC BG Monitoring -HgbA1C 11.2 -SSI and scheduled Lantus Hypertension -New diagnosis -Elevated BP 152/104 -Continue to monitor BP -IV hydralazine when necessary -Start Norvasc 5 mg daily Obesity -BMI 45.3 -Diet and lifestyle changes -May benefit from outpatient weight management program DVT PPX -on Lovenox Hx of lower extremity cellulitis -Diagnosed and treated in 2017 Advance Directives: No VTE prophylaxis?: Chemical Plan of care discussed with patient/family: Yes Disposition: continue inpatient care, d/c once ID clears and cultures finalized. History Interval history: Patient was seen and examined. Follow-up on current diagnosis. No overnight events reported to me. Patient denies any chest pain, shortness breath, nausea/vomiting or severe headaches. Imaging, nursing note, chart, labs and old chart reviewed. Discussed with patient. Hospitalist Physical - Physical exam Narrative exam: Gen: WDWN, NAD, Awake, Alert, Orientated HEENT: NCAT, EOMI, PERRL, OP Clear Neck: supple, no adenopathy, no thyromegaly, no JVD CVS/Heart: RRR, normal S1S2, pulses present bilaterally Chest/Lungs: CTA B, Symmetrical chest expansion, good air entry bilaterally GI/Abdomen: soft, NTND, good bowel sounds, no guarding or rebound /Bladder: no suprapubic tenderness, no CVA or paraspinal tenderness Extermity/Skin: no c/c/e, no obvious rash, right > left leg MSK: FROM x 4 Neuro: CN 2-12 grossly intact, no new focal deficits Psych: calm - Constitutional Vitals: Temp Pulse Resp BP Pulse Ox 99.7 F H 97 H 18 114/94 99 03/18/19 08:20 03/18/19 09:35 03/18/19 08:20 03/18/19 09:35 03/18/19 08:20 Results - Labs CBC & Chem 7: 03/18/19 03:26 03/18/19 03:26 Labs: Laboratory Last Values WBC 9.5 K/mm3 (4.5-11.0) 03/18/19 03:26 RBC 4.84 M/mm3 (3.65-5.03) 03/18/19 03:26 Hgb 13.4 gm/dl (11.8-15.2) 03/18/19 03:26 Hct 38.0 % (35.5-45.6) 03/18/19 03:26 MCV 79 fl (84-94) L 03/18/19 03:26 MCH 28 pg (28-32) 03/18/19 03:26 MCHC 35 % (32-34) H 03/18/19 03:26 RDW 15.7 % (13.2-15.2) H 03/18/19 03:26 Plt Count 178 K/mm3 (140-440) 03/18/19 03:26 Lymph % (Auto) 9.2 % (13.4-35.0) L 03/17/19 05:25 [place] % (Auto) 9.0 % (0.0-7.3) H 03/17/19 05:25 Eos % (Auto) 0.0 % (0.0-4.3) 03/17/19 05:25 Baso % (Auto) 0.2 % (0.0-1.8) 03/17/19 05:25 Lymph # 1.3 K/mm3 (1.2-5.4) 03/17/19 05:25 [place] # 1.3 K/mm3 (0.0-0.8) H 03/17/19 05:25 Eos # 0.0 K/mm3 (0.0-0.4) 03/17/19 05:25 Baso # 0.0 K/mm3 (0.0-0.1) 03/17/19 05:25 Seg Neutrophils % 81.6 % (40.0-70.0) H 03/17/19 05:25 Seg Neutrophils # 11.6 K/mm3 (1.8-7.7) H 03/17/19 05:25 POC ABG pH 7.453 (7.35-7.45) H 03/16/19 22:02 POC ABG pO2 74 (80-105) L 03/16/19 22:02 POC ABG HCO3 15.8 (22-26 mml/L) 03/16/19 22:02 POC ABG Total CO2 16 (23-27mmol/L) 03/16/19 22:02 POC ABG O2 Sat 96 03/16/19 22:02 POC ABG Base Excess -8 ((-2) - (+3)mmol/L) 03/16/19 22:02 21 % 03/16/19 22:02 Sodium 136 mmol/L (137-145) L 03/18/19 03:26 Potassium 3.6 mmol/L (3.6-5.0) 03/18/19 03:26 Chloride 101.4 mmol/L (98-107) 03/18/19 03:26 Carbon Dioxide 23 mmol/L (22-30) 03/18/19 03:26 15 mmol/L 03/18/19 03:26 BUN 7 mg/dL (9-20) L 03/18/19 03:26 0.8 mg/dL (0.8-1.5) 03/18/19 03:26 Estimated GFR > 60 ml/min 03/18/19 03:26 9 % 03/18/19 03:26 Glucose 263 mg/dL (75-100) H 03/18/19 03:26 POC Glucose 224 (70-105) H 03/18/19 07:23 11.2 % (4-6) H 03/16/19 18:12 Calcium 8.6 mg/dL (8.4-10.2) 03/18/19 03:26 Phosphorus 1.30 mg/dL (2.5-4.5) L 03/16/19 19:52 Magnesium 2.00 mg/dL (1.7-2.3) 03/18/19 03:26 1.50 mg/dL (0.1-1.2) H 03/16/19 18:12 0.5 mg/dL (0-0.2) H 03/16/19 18:12 1.0 mg/dL 03/16/19 18:12 AST 34 units/L (5-40) 03/16/19 18:12 ALT 48 units/L (7-56) 03/16/19 18:12 91 units/L (35-129) 03/16/19 18:12 < 0.010 ng/mL (0.00-0.029) 03/16/19 18:12 8.1 g/dL (6.3-8.2) 03/16/19 18:12 3.6 g/dL (3.9-5) L 03/16/19 18:12 0.8 % 03/16/19 18:12 29 units/L (13-60) 03/16/19 18:12 Yellow (Yellow) 03/16/19 20:30 Clear (Clear) 03/16/19 20:30 5.0 (5.0-7.0) 03/16/19 20:30 Ur Specific [place] 1.028 (1.003-1.030) 03/16/19 20:30 30 mg/dl mg/dL (Negative) 03/16/19 20:30 >=500 mg/dL (Negative) 03/16/19 20:30 80 mg/dL (Negative) 03/16/19 20:30 Sm (Negative) 03/16/19 20:30 Neg (Negative) 03/16/19 20:30 Neg (Negative) 03/16/19 20:30 < 2.0 mg/dL (<2.0) 03/16/19 20:30 Ur Leukocyte Esterase Neg (Negative) 03/16/19 20:30 4.0 /HPF (0.0-6.0) 03/16/19 20:30 2.0 /HPF (0.0-6.0) 03/16/19 20:30 1+ /HPF 03/16/19 20:30 Presumptive negative 03/18/19 02:40 Presumptive negative 03/18/19 02:40 Ur Barbiturates Screen Presumptive negative 03/18/19 02:40 Ur Phencyclidine Scrn Presumptive negative 03/18/19 02:40 Ur Amphetamines Screen Presumptive negative 03/18/19 02:40 U Benzodiazepines Scrn Presumptive negative 03/18/19 02:40 Presumptive negative 03/18/19 02:40 U Marijuana (THC) Screen Presumptive negative 03/18/19 02:40 Disclamer 03/18/19 02:40 HIV 1&2 Antibody Rapid Non react (Non React) 03/17/19 16:31 Non react (Non React) 03/17/19 16:31 Active Medications - Current Medications Current Medications: Generic Name Dose Route Start Last Admin Trade Name Freq PRN Reason Stop Dose Admin Acetaminophen 650 mg 03/17/19 00:43 03/17/19 01:09 Tylenol PO 650 mg Q4H PRN Administration Pain, Mild (1-3) Amlodipine Besylate 10 mg 03/17/19 13:26 03/18/19 09:35 Norvasc PO 10 mg QDAY AYANNA Administration Dextrose 50 ml 03/16/19 20:05 D50w (25gm) Syringe IV PRN PRN Hypoglycemia Hydralazine HCl 10 mg 03/16/19 22:18 03/17/19 12:35 Apresoline IV 10 mg Q4HR PRN Administration Blood Pressure Sodium Chloride 1,000 mls @ 75 mls/hr 03/16/19 21:00 03/17/19 09:52 Nacl 0.9% 1000 Ml IV 125 mls/hr DIRECT AYANNA Administration Cefazolin Sodium 2 gm/ Sodium 100 mls @ 200 mls/hr 03/17/19 17:00 03/18/19 09:35 Chloride IV 200 mls/hr Q8H AYANNA Administration Protocol Insulin Glargine 20 units 03/16/19 22:00 03/17/19 21:54 Lantus SUB-Q 20 units QHS AYANNA Administration Insulin Human Lispro 0 unit 03/16/19 21:00 03/18/19 07:00 Humalog SUB-Q 4 unit Q6HR AYANNA Administration Protocol Labetalol HCl 10 mg 03/17/19 13:27 Normodyne IV Q4H PRN Blood Pressure Nutrition/Malnutrition Assess - Dietary Evaluation Nutrition/Malnutrition Findings: Nutrition Notes Start: 03/17/19 14:19 Freq: Status: Active Protocol: Document 03/17/19 14:19 RM (Rec: 03/17/19 14:22 RM [id number]) Nutrition Notes Need for Assessment generated from: MD Order Initial or Follow up Brief Note Current Diagnosis Hypertension Other Pertinent Diagnosis LE edema, AMS, hyperglycemia Current Diet Cardiac/Consistent CHO Labs/Tests A1c 11.2 Pertinent Medications Reviewed Height 5 ft 8 in Weight 138.5 kg [place] Body Weight (kg) 70.00 BMI 46.4 Subjective/Other Information Consulted for DM diet education. Pt confused at time of visit and not appropriate for diet education. Per nurse pt eats all of his meals. Burn Absent Trauma Absent Nutrition Intervention Follow-Up By: 03/19/19 Additional Comments Follow for DM diet education
[2019-03-18] MEDS ORDERED: D50W (25GM) Syringe IV PRN (11:20)
[2019-03-19] MEDS: ceFAZolin 2 GM in NACL 0.9% 100 ML IV SCH ×2 (01:15→11:07)
[2019-03-19 05:13] LABS: Hemoglobin 14.4 gm/dl (11.8-15.2); Mean Corpuscular HGB Conc 35 % (32-34); Mean Corpuscular Volume 79 fl (84-94); Platelet Count 217 K/mm3 (140-440); Red Blood Count 5.18 M/mm3 (3.65-5.03); Red Cell Distribution Width 15.9 % (13.2-15.2)
[2019-03-19 05:50] LABS: BUN/Creatinine Ratio 9; Blood Urea Nitrogen 7 mg/dL (9-20); Calcium 9.6 mg/dL (8.4-10.2); Hemolysis Index 111
[2019-03-19] MEDS: HumaLOG SUB-Q SCH ×3 (08:00→17:59)
--- NOTE | 2019-03-19 09:38 | Progress Note ---
Assessment and Plan Cultures: 03/16/2019 and blood culture: no growth in 48 hours A/P: 33/M with obesity with: 1) Sepsis; Resolved. etiology is probably right lower extremity cellulitis: Right lower extremity is swollen, warm and slightly tender. No open wounds / abscess. Cover for beta-hemolytic strep species. DVT scan negative. HIV negative 2) Altered mental status/acute encephalopathy: Resolved. Meningitis / encephalitis unlikely. UDS negative. 3) DM and HTN: per IMS. Recs: Discontinue cefazolin clinically stable, Switch to Keflex 500mg PO QID for total 2 weeks ending 03-31-19 Ok to discharge from ID standpoint Yvrose Bell NP [facility] M: [phone] O:[phone] Subjective Date of service: 03/19/19 Interval history: Patient seen and examined, sitting upin the chair. Right lower extremity improving, able to ambulate better. No fevers . Objective - Exam Narrative Exam: Constitutional: Alert, cooperative. No acute distress. Obese. Head, Ears, Nose: Normocephalic, atraumatic. External ears, nose normal Eyes: Conjunctivae/corneas clear. No icterus. No ptosis. Neck: Supple, no meningeal signs Oral: dentition fair, no thrush Cardiovascular: S1, S2 normal. Respiratory: Good air entry, clear to auscultation bilaterally GI: Soft, non-tender; bowel sounds normal. No peritoneal signs Musculoskeletal: RLE with swelling, redness and warmth and slight tenderness im proving. Skin: No rash or abscess Hem/Lymphatic: No palpable cervical or supraclavicular nodes. No lymphangitis Psych: Mood ok. Affect normal Neurological: Awake, alert, oriented to place and person. No gross abnormality - Constitutional Vitals: Vital Signs Temp Pulse Resp BP Pulse Ox 98.1 F 86 18 133/91 94 03/19/19 05:36 03/19/19 05:36 03/19/19 05:36 03/19/19 05:36 03/19/19 05:36 Temperature -Last 24 Hours Temperature 98.1 F Temperature 98.0 F Temperature 98.1 F Temperature 98.7 F Temperature 97.9 F - Labs CBC & Chem 7: 03/19/19 04:13 03/19/19 04:13 Labs: Abnormal lab results 03/18/19 03/18/19 03/18/19 Range/Units 12:01 16:08 22:02 RBC (3.65-5.03) M/mm3 MCV (84-94) fl MCHC (32-34) % RDW (13.2-15.2) % Sodium (137-145) mmol/L BUN (9-20) mg/dL Glucose (75-100) mg/dL POC Glucose 285 H 259 H 300 H (70-105) 03/19/19 03/19/19 03/19/19 Range/Units 04:13 04:13 08:14 RBC 5.18 H (3.65-5.03) M/mm3 MCV 79 L (84-94) fl MCHC 35 H (32-34) % RDW 15.9 H (13.2-15.2) % Sodium 136 L (137-145) mmol/L BUN 7 L (9-20) mg/dL Glucose 214 H (75-100) mg/dL POC Glucose 197 H (70-105)
[2019-03-19] MEDS: NORVASC PO SCH (11:02)
[2019-03-19] MEDS: KEFLEX PO SCH ×2 (11:02→18:01)
[2019-03-20] MEDS: KEFLEX PO SCH ×4 (00:02→17:13)
[2019-03-20] MEDS: HumaLOG SUB-Q SCH ×4 (00:03→17:15)
[2019-03-20] MEDS: NORVASC PO SCH (10:18)
--- NOTE | 2019-03-20 11:54 | Progress Note ---
Assessment and Plan Cultures: 03/16/2019 and blood culture: no growth A/P: 33/M with obesity with: 1) Sepsis; Resolved. etiology is probably right lower extremity cellulitis: Right lower extremity is swollen, warm and slightly tender. No open wounds / abscess. Cover for beta-hemolytic strep species. DVT scan negative. HIV negative 2) Altered mental status/acute encephalopathy: Resolved. Meningitis / en cephalitis unlikely. UDS negative. 3) DM and HTN: per IMS. Recs: clinically stable, Switch to Keflex 500mg PO QID for total 2 weeks ending 03-31-19 Ok to discharge from ID standpoint Follow-up ID clinic in 2 weeks (sent to outpatient scheduler) Yvrose Bell NP [facility] M: [phone] O:[phone] Subjective Date of service: 03/20/19 Interval history: Patient seen and examined, sitting up in the chair. Right lower extremity improving, able to ambulate better. No fevers . Objective - Exam Narrative Exam: Constitutional: Alert, cooperative. No acute distress. Obese. Head, Ears, Nose: Normocephalic, atraumatic. External ears, nose normal Eyes: Conjunctivae/corneas clear. No icterus. No ptosis. Neck: Supple, no meningeal signs Oral: dentition fair, no thrush Cardiovascular: S1, S2 normal. Respiratory: Good air entry, clear to auscultation bilaterally GI: Soft, non-tender; bowel sounds normal. No peritoneal signs Musculoskeletal: RLE with swelling, redness and warmth and slight tenderness improving. Skin: No rash or abscess Hem/Lymphatic: No palpable cervical or supraclavicular nodes. No lymphangitis Psych: Mood ok. Affect normal Neurological: Awake, alert, oriented to place and person. No gross abnormality - Constitutional Vitals: Vital Signs Temp Pulse Resp BP Pulse Ox 97.9 F 75 20 135/94 99 03/20/19 08:29 03/20/19 08:29 03/20/19 08:29 03/20/19 08:29 03/20/19 08:29 Temperature -Last 24 Hours Temperature 97.9 F Temperature 98.0 F Temperature 98.0 F Temperature 98.2 F Temperature 98.4 F - Labs CBC & Chem 7: 03/19/19 04:13 03/19/19 04:13 Labs: Abnormal lab results 03/19/19 03/19/19 03/19/19 Range/Units 12:18 17:03 23:42 POC Glucose 217 H 198 H 298 H (70-105) 03/20/19 Range/Units 07:52 POC Glucose 186 H (70-105)
--- NOTE | 2019-03-20 12:08 | Progress Note ---
Assessment and Plan Assessment and plan: Assessment and plan: Patient is a 33-year-old -F[place]ian man with history of obesity, left lower extremity edema who presents to [facility] ED via EMS with complaints of altered mental status. Patient recently traveled to [place] for two and half weeks and returned on 03/14/2019. He was unable to provide history or details of his trip, now he is much better. He does admit to using recreational drugs while he was in [place].. He went to [facility] then here Acute encephalopathy -Likely metabolic -Neuro checks -Continue supportive care -PT/OT consult pending -CXR unrevealing for acute abnormalities -CT Head negative for acute intra-cranial abnormalities Right lower extremity cellulitis -Swelling of right lower extremity with warmth and red discoloration -Denies pain -Right lower extremity Doppler pending to rule out DVT -Start on Lovenon 1mg/kg BID, will d/c if doppler is negative -Started on Unasyn -Will consider ID consult and additional antibiotic coverage pending culture results and Doppler which is negative Sepsis, poa -Likely secondary to right lower extremity cellulitis (he does have a healed cut on right [place]monte area) -Leukocytosis, WBC 15.0 -Tachycardiac with heart rate 102-110 -Hydrate with IVF -Continue to Monitor CBC -ID consulted Hyperglycemia/hyperosmolar non-ketosis -Newly diagnosed diabetes -BG on admission 330 -POC BG Monitoring -HgbA1C 11.2 -SSI and scheduled Lantus Hypertension -New diagnosis -Elevated BP 152/104 -Continue to monitor BP -IV hydralazine when necessary -Start Norvasc 5 mg daily Obesity -BMI 45.3 -Diet and lifestyle changes -May benefit from outpatient weight management program DVT PPX -on Lovenox Hx of lower extremity cellulitis -Diagnosed and treated in 2017 Advance Directives: No VTE prophylaxis?: Chemical Plan of care discussed with patient/family: Yes Cr was 1.2 and now 0.8, mild ARF due to vasomotor nephrology poa Disposition: continue inpatient care, d/c once ID clears and cultures finalized. Hospitalist Physical - Constitutional Vitals: Temp Pulse Resp BP Pulse Ox 97.9 F 75 20 135/94 99 03/20/19 08:29 03/20/19 08:29 03/20/19 08:29 03/20/19 08:29 03/20/19 08:29 Results - Labs CBC & Chem 7: 03/19/19 04:13 03/19/19 04:13 Labs: Laboratory Last Values WBC 8.3 K/mm3 (4.5-11.0) 03/19/19 04:13 RBC 5.18 M/mm3 (3.65-5.03) H 03/19/19 04:13 Hgb 14.4 gm/dl (11.8-15.2) 03/19/19 04:13 Hct 41.0 % (35.5-45.6) 03/19/19 04:13 MCV 79 fl (84-94) L 03/19/19 04:13 MCH 28 pg (28-32) 03/19/19 04:13 MCHC 35 % (32-34) H 03/19/19 04:13 RDW 15.9 % (13.2-15.2) H 03/19/19 04:13 Plt Count 217 K/mm3 (140-440) 03/19/19 04:13 Lymph % (Auto) 9.2 % (13.4-35.0) L 03/17/19 05:25 [place] % (Auto) 9.0 % (0.0-7.3) H 03/17/19 05:25 Eos % (Auto) 0.0 % (0.0-4.3) 03/17/19 05:25 Baso % (Auto) 0.2 % (0.0-1.8) 03/17/19 05:25 Lymph # 1.3 K/mm3 (1.2-5.4) 03/17/19 05:25 [place] # 1.3 K/mm3 (0.0-0.8) H 03/17/19 05:25 Eos # 0.0 K/mm3 (0.0-0.4) 03/17/19 05:25 Baso # 0.0 K/mm3 (0.0-0.1) 03/17/19 05:25 Seg Neutrophils % 81.6 % (40.0-70.0) H 03/17/19 05:25 Seg Neutrophils # 11.6 K/mm3 (1.8-7.7) H 03/17/19 05:25 POC ABG pH 7.453 (7.35-7.45) H 03/16/19 22:02 POC ABG pO2 74 (80-105) L 03/16/19 22:02 POC ABG HCO3 15.8 (22-26 mml/L) 03/16/19 22:02 POC ABG Total CO2 16 (23-27mmol/L) 03/16/19 22:02 POC ABG O2 Sat 96 03/16/19 22:02 POC ABG Base Excess -8 ((-2) - (+3)mmol/L) 03/16/19 22:02 21 % 03/16/19 22:02 Sodium 136 mmol/L (137-145) L 03/19/19 04:13 Potassium 4.5 mmol/L (3.6-5.0) D 03/19/19 04:13 Chloride 99.8 mmol/L (98-107) 03/19/19 04:13 Carbon Dioxide 22 mmol/L (22-30) 03/19/19 04:13 19 mmol/L 03/19/19 04:13 BUN 7 mg/dL (9-20) L 03/19/19 04:13 0.8 mg/dL (0.8-1.5) 03/19/19 04:13 Estimated GFR > 60 ml/min 03/19/19 04:13 9 % 03/19/19 04:13 Glucose 214 mg/dL (75-100) H 03/19/19 04:13 POC Glucose 186 (70-105) H 03/20/19 07:52 11.2 % (4-6) H 03/16/19 18:12 Calcium 9.6 mg/dL (8.4-10.2) 03/19/19 04:13 Phosphorus 1.30 mg/dL (2.5-4.5) L 03/16/19 19:52 Magnesium 1.90 mg/dL (1.7-2.3) 03/19/19 04:13 1.50 mg/dL (0.1-1.2) H 03/16/19 18:12 0.5 mg/dL (0-0.2) H 03/16/19 18:12 1.0 mg/dL 03/16/19 18:12 AST 34 units/L (5-40) 03/16/19 18:12 ALT 48 units/L (7-56) 03/16/19 18:12 91 units/L (35-129) 03/16/19 18:12 < 0.010 ng/mL (0.00-0.029) 03/16/19 18:12 8.1 g/dL (6.3-8.2) 03/16/19 18:12 3.6 g/dL (3.9-5) L 03/16/19 18:12 0.8 % 03/16/19 18:12 29 units/L (13-60) 03/16/19 18:12 Yellow (Yellow) 03/16/19 20:30 Clear (Clear) 03/16/19 20:30 5.0 (5.0-7.0) 03/16/19 20:30 Ur Specific [place] 1.028 (1.003-1.030) 03/16/19 20:30 30 mg/dl mg/dL (Negative) 03/16/19 20:30 >=500 mg/dL (Negative) 03/16/19 20:30 80 mg/dL (Negative) 03/16/19 20:30 Sm (Negative) 03/16/19 20:30 Neg (Negative) 03/16/19 20:30 Neg (Negative) 03/16/19 20:30 < 2.0 mg/dL (<2.0) 03/16/19 20:30 Ur Leukocyte Esterase Neg (Negative) 03/16/19 20:30 4.0 /HPF (0.0-6.0) 03/16/19 20:30 2.0 /HPF (0.0-6.0) 03/16/19 20:30 1+ /HPF 03/16/19 20:30 Presumptive negative 03/18/19 02:40 Presumptive negative 03/18/19 02:40 Ur Barbiturates Screen Presumptive negative 03/18/19 02:40 Ur Phencyclidine Scrn Presumptive negative 03/18/19 02:40 Ur Amphetamines Screen Presumptive negative 03/18/19 02:40 U Benzodiazepines Scrn Presumptive negative 03/18/19 02:40 Presumptive negative 03/18/19 02:40 U Marijuana (THC) Screen Presumptive negative 03/18/19 02:40 Disclamer 03/18/19 02:40 HIV 1&2 Antibody Rapid Non react (Non React) 03/17/19 16:31 Non react (Non React) 03/17/19 16:31 Active Medications - Current Medications Current Medications: Generic Name Dose Route Start Last Admin Trade Name Freq PRN Reason Stop Dose Admin Acetaminophen 650 mg 03/17/19 00:43 03/17/19 01:09 Tylenol PO 650 mg Q4H PRN Administration Pain, Mild (1-3) Amlodipine Besylate 10 mg 03/17/19 13:26 03/20/19 10:18 Norvasc PO 10 mg QDAY AYANNA Administration Cephalexin 500 mg 03/19/19 12:00 03/20/19 05:21 Keflex PO 03/31/19 23:59 500 mg Q6HR AYANNA Administration Dextrose 50 ml 03/18/19 11:20 D50w (25gm) Syringe IV PRN PRN Hypoglycemia Hydralazine HCl 10 mg 03/16/19 22:18 03/17/19 12:35 Apresoline IV 10 mg Q4HR PRN Administration Blood Pressure Insulin Human Lispro 0 unit 03/18/19 11:30 03/20/19 10:18 Humalog SUB-Q 3 unit ACHS AYANNA Administration Protocol Labetalol HCl 10 mg 03/17/19 13:27 Normodyne IV Q4H PRN Blood Pressure Nutrition/Malnutrition Assess - Dietary Evaluation Nutrition/Malnutrition Findings: Nutrition Notes Start: 03/17/19 14:19 Freq: Status: Active Protocol: Document 03/19/19 11:55 LP (Rec: 03/19/19 11:57 LP [id number]) Nutrition Notes Need for Assessment generated from: Education Initial or Follow up Brief Note Current Diagnosis Diabetes,Hypertension Other Pertinent Diagnosis LE edema, AMS, hyperglycemia Subjective/Other Information Pt new with DM. Pt states trying to recently change diet . Burn Absent Trauma Absent #1 Nutrition Diagnosis Food and nutrition-related knowledge deficit Etiology DM diet As Evidenced by Signs and Symptoms Pt with new DM Nutrition Intervention Teaching Recipient Patient Learning Readiness Good Teaching Methods Discussion,Handout Response to Teaching Verbalize understanding Education Handouts Provided Consistent CHO Barriers to Learning No Barriers RD phone number provided Yes Patient aware of follow up options Yes Revisit per MD consult or patient Sign Off request:
--- NOTE | 2019-03-20 12:11 | Discharge Summary ---
Providers - Providers Date of Admission: 03/16/19 19:36 Attending physician: MAREK BACA MD 03/16/19 21:38 Occupational Therapy Evaluate and Treat [CONS] Routine Comment: Reason For Exam: AMS, unsteady gait Physical Therapy Evaluation and Treat [CONS] Routine Comment: Reason For Exam: AMS, unsteady gait 03/17/19 13:22 Consult to Physician [CONS] Routine Comment: Consulting Provider: EMANUEL LEE Physician Instructions: Reason For Exam: sepsis [facility] Condition: Stable Disposition: DC-01 TO HOME OR SELFCARE Time spent for discharge: 33 mins Core Measure Documentation - Palliative Care Palliative Care/ Comfort Measures: Not Applicable - Core Measures Any of the following diagnoses?: none Exam - Constitutional Vitals: Temp Pulse Resp BP Pulse Ox 97.9 F 75 20 135/94 99 03/20/19 08:29 03/20/19 08:29 03/20/19 08:29 03/20/19 08:29 03/20/19 08:29 Plan Follow up with: CARSON SINGHPITTSTON MD MALIK [Primary Care Provider] - 7 Days Prescriptions: cephALEXin [Keflex] 500 mg PO Q6HR 9 Days capsule amLODIPine [Norvasc] 10 mg PO QDAY #60 tablet Acetaminophen/Codeine [Tylenol /Codeine # 3 tab] 1 tab PO Q6H PRN #14 tab PRN Reason: Pain, Moderate (4-6)
[2019-03-20 16:15] VITALS: BP 132/88
== END 2019-03-20 18:17 | disposition home or self-care (01) | DRG 871 ==
LOC: ED 17:43 → 4A 19:36
PROVIDERS: ADMIT Internal Medicine; ATTEND Internal Medicine
PROC: 4A033R1 Measurement of Arterial Saturation, Peripheral, Percutaneous Approach (ICD-10-PCS; principal; 2019-03-16)
DX: A41.9 Sepsis, unspecified organism (principal); E11.10 Type 2 diabetes mellitus with ketoacidosis without coma; G93.41 Metabolic encephalopathy; Z68.42 Body mass index [BMI] 45.0-49.9, adult; L03.115 Cellulitis of right lower limb; Z60.2 Problems related to living alone; E66.01 Morbid (severe) obesity due to excess calories; M10.9 Gout, unspecified; Z79.84 Long term (current) use of oral hypoglycemic drugs
CPT/HCPCS: 36415; 36600; 70450; 71045; 80048; 80076; 80307; 81001; 82803; 82962; 83036; 83690; 83735; 84100; 84484; 85025; 85027; 87040; 87806; 93005; 93010; G0378; J0295; J0360; J0690; J1650; J1815; J3475; J7030

== ENCOUNTER 2020-05-18 15:15 | Observation (INO) | payer OTHER ==
[2020-05-18 16:05] LABS: Basophils % (Auto) 0.2 % (0.0-1.8); Eosinophils % (Auto) 0.4 % (0.0-4.3); Hematocrit 44.8 % (35.5-45.6); Hemoglobin 15.9 gm/dl (11.8-15.2); Lymphocytes # (Auto) 1.3 K/mm3 (1.2-5.4); Lymphocytes % (Auto) 19.1 % (13.4-35.0); Mean Corpuscular HGB Conc 36 % (32-34); Mean Corpuscular Volume 78 fl (84-94); Monocytes # (Auto) 0.7 K/mm3 (0.0-0.8); Monocytes % (Auto) 10.2 % (0.0-7.3); Platelet Count 163 K/mm3 (140-440); Red Blood Count 5.73 M/mm3 (3.65-5.03); Red Cell Distribution Width 15.8 % (13.2-15.2)
--- NOTE | 2020-05-18 16:13 | XRay Report ---
XR chest routine 2V INDICATION / CLINICAL INFORMATION: shortness of breath, hypoxia, +covid COMPARISON: None available. FINDINGS: SUPPORT DEVICES: None. HEART / MEDIASTINUM: No significant abnormality. LUNGS / PLEURA: Scattered airspace disease. Costophrenic sulci are sharp. No pneumothorax. ADDITIONAL FINDINGS: No significant additional findings. IMPRESSION: 1. Scattered airspace disease consistent with patient's provided history of Covid pneumonia. Signer Name: Jaime Oates MD Signed: 05/18/2020 4:08 PM Workstation Name: [id number]
[2020-05-18 16:29] LABS: Alanine Aminotransferase 67 units/L (7-56); Albumin 4.1 g/dL (3.9-5); BUN/Creatinine Ratio 10; Blood Urea Nitrogen 11 mg/dL (9-20); Calcium 9.2 mg/dL (8.4-10.2); Hemolysis Index 10
[2020-05-18] MEDS ORDERED: DEXAMETHASONE 4 MG TAB PO ONE (19:46)
[2020-05-18] MEDS ORDERED: cefTRIAXone/NS 1 GM/50 ML 1 GM/50 ML BAG IV ONE (19:46)
[2020-05-18] MEDS ORDERED: AZITHROMYCIN 250 MG TAB PO ONE (19:47)
--- NOTE | 2020-05-18 19:52 | Emergency Department Report ---
ED Shortness of Breath HPI - General Chief Complaint: Dyspnea/Respdistress Stated Complaint: COVID Time Seen by Provider: 05/18/20 19:35 Source: patient Mode of arrival: Ambulatory Limitations: No Limitations - History of Present Illness Initial Comments: 34-year-old male, history of hypertension, diabetes, asthma, presents to ED with difficulty breathing. Patient reports he tested positive for COVID-19 a couple of days ago. Patient reports he began having symptoms 4 days ago, which include fever, cough, shortness of breath. Patient denies vomiting, diarrhea, loss of smell or taste, headache, body aches. MD Complaint: shortness of breath -: days(s) (4) Severity: moderate Consistency: intermittent Improves With: rest Worsens With: exertion Known History Of: asthma Associated Symptoms: fever, cough - Related Data Home Oxygen Therapy: No Previous Rx's Medication Instructions Recorded Last Taken Type Acetaminophen/Codeine [Tylenol 1 tab PO Q6H PRN #14 tab 03/20/19 Unknown Rx /Codeine # 3 tab] amLODIPine 10 mg PO QDAY #60 tablet 03/20/19 Unknown Rx cephALEXin [Keflex] 500 mg PO Q6HR 9 Days capsule 03/20/19 Unknown Rx glipiZIDE [Glucotrol] 5 mg PO BID #60 tablet 03/20/19 Unknown Rx metFORMIN [Glucophage] 500 mg PO BID #60 tablet 03/20/19 Unknown Rx Allergies Allergy/AdvReac Type Severity Reaction Status Date / Time No Known Allergies Allergy Unverified 12/23/13 09:40 ED Review of Systems ROS: Stated complaint: COVID Other details as noted in HPI Comment: All other systems reviewed and negative Constitutional: fever ENT: denies: throat pain Respiratory: cough, shortness of breath Cardiovascular: denies: chest pain Gastrointestinal: denies: vomiting, diarrhea Musculoskeletal: denies: myalgia Neurological: denies: headache ED Past Medical Hx - Past Medical History Previous Medical History?: Yes Hx Hypertension: Yes Hx Congestive Heart Failure: No Hx Diabetes: No Hx Asthma: Yes Hx COPD: No Additional medical history: gout - Surgical History Additional Surgical History: denies - Social History Smoking Status: Never Smoker - Medications Home Medications: Home Medications Medication Instructions Recorded Confirmed Last Taken Type Acetaminophen/Codeine [Tylenol 1 tab PO Q6H PRN #14 tab 03/20/19 Unknown Rx /Codeine # 3 tab] amLODIPine 10 mg PO QDAY #60 tablet 03/20/19 Unknown Rx cephALEXin [Keflex] 500 mg PO Q6HR 9 Days capsule 03/20/19 Unknown Rx glipiZIDE [Glucotrol] 5 mg PO BID #60 tablet 03/20/19 Unknown Rx metFORMIN [Glucophage] 500 mg PO BID #60 tablet 03/20/19 Unknown Rx ED Physical Exam - General Limitations: No Limitations General appearance: alert, in no apparent distress - Head Head exam: Present: atraumatic, normocephalic - Eye Eye exam: Present: normal appearance, EOMI - ENT ENT exam: Present: mucous membranes moist - Neck Neck exam: Present: normal inspection - Respiratory Respiratory exam: Present: normal lung sounds bilaterally. Absent: respiratory distress - Cardiovascular Cardiovascular Exam: Present: normal rhythm, tachycardia - GI/Abdominal GI/Abdominal exam: Present: soft. Absent: distended, tenderness - Extremities Exam Extremities exam: Present: normal inspection - Neurological Exam Neurological exam: Present: alert, oriented X3 - Psychiatric Psychiatric exam: Present: normal affect, normal mood - Skin Skin exam: Present: warm, dry, intact, normal color ED Course Vital Signs 05/18/20 05/18/20 05/18/20 15:23 15:24 17:48 Temperature 100.6 F H 100.5 F H Pulse Rate 121 H 111 H Respiratory 22 20 Rate Blood Pressure 157/105 Blood Pressure 159/99 [Right] O2 Sat by Pulse 93 88 94 Oximetry 05/18/20 05/18/20 05/18/20 21:04 21:20 21:21 Temperature 99.0 F Pulse Rate 94 H Respiratory 20 20 20 Rate Blood Pressure Blood Pressure 133/85 [Right] O2 Sat by Pulse 95 95 Oximetry ED Medical Decision Making - Lab Data Result diagrams: 05/18/20 15:40 05/18/20 20:05 - EKG Data -: EKG Interpreted by De EKG shows normal: sinus rhythm, axis, intervals, QRS complexes, ST-T waves Rate: normal - EKG Data Interpretation: no acute changes - Radiology Data Radiology results: report reviewed, image reviewed - Medical Decision Making 34-year-old male with recent, positive diagnosis presents to ED with shortness of breath. He does have history of asthma. O2 sats 88% on room air. Temp of 100.6. No evidence of wheezing on exam. Chest x-ray does show scattered airspace disease concerning for pneumonia. Patient currently on 2 L O2 via nasal cannula. Patient given Decadron, Rocephin, azithromycin here in ED. He will be admitted to hospitalist, Dr. Mendoza, for further management. - Differential Diagnosis Pneumonia, Asthma, COVID-19 Critical care attestation.: If time is entered above; I have spent that time in minutes in the direct care of this critically ill patient, excluding procedure time. ED Disposition Clinical Impression: Hypoxia, Pneumonia due to COVID-19 virus, Transaminitis Disposition: DC OP ADMIT IP TO THIS HOSP Is pt being admited?: Yes Condition: Stable
[2020-05-18] MEDS ORDERED: ONDANSETRON 4 MG/2 ML INJ IV PRN (20:00)
[2020-05-18] MEDS ORDERED: ONDANSETRON 4 MG/2 ML INJ IV ONE (20:00)
[2020-05-18] MEDS ORDERED: ACETAMINOPHEN 500 MG TAB PO ONE (20:21)
[2020-05-18] MEDS ORDERED: ONDANSETRON 4 MG/2 ML INJ ONE (20:38)
[2020-05-18 20:48] LABS: C-Reactive Protein 1.1 mg/dL (0.00-1.30)
[2020-05-18] MEDS ORDERED: DEXTROSE 50% IN WATER (25GM) 50 ML SYRINGE IV PRN (22:11)
[2020-05-18] MEDS ORDERED: SODIUM CHLORIDE 0.9% 1000 ML 1,000 ML IV SCH (22:15)
--- NOTE | 2020-05-18 22:22 | History and Physical Report ---
History of Present Illness Date of examination: 05/18/20 Date of admission: 05/18/20 21:27 Chief complaint: Fever Cough Shortness of Breath History of present illness: 34-year-old male with known history of diabetes mellitus, hypertension and asthma presented to the emergency room today complaining of fever, cough and shortness of breath. Patient indicates that he was COVID-19 positive on May 14 2020. He denies any nausea or vomiting, no diarrhea, no abdominal pain, no chest pain, no headache or dizziness. Patient denies any sick contacts and no recent travel. Denies any contact with anyone with COVID-19. Upon arrival in the emergency room patient had O2 saturation of about 88% on room air. Work-up in the emergency room today reveals bilateral pulmonary infiltrate. He has been commenced on empiric IV antibiotics and IV steroid. Patient is plac ed on isolation precautions. Past History Past Medical History: diabetes, hypertension, other (Asthma, Gout) Past Surgical History: No surgical history Social history: no significant social history Family history: no significant family history Medications and Allergies Allergies Allergy/AdvReac Type Severity Reaction Status Date / Time No Known Allergies Allergy Unverified 12/23/13 09:40 Home Medications Medication Instructions Recorded Confirmed Last Taken Type amLODIPine 10 mg PO QDAY #60 tablet 03/20/19 05/19/20 Unknown Rx glipiZIDE [Glucotrol] 5 mg PO BID #60 tablet 03/20/19 05/19/20 Unknown Rx metFORMIN [Glucophage] 500 mg PO BID #60 tablet 03/20/19 05/19/20 Unknown Rx Active Meds: Active Medications Dexamethasone (Decadron) 6 mg IV Q24HR AYANNA Dextrose (D50w (25gm) Syringe) 50 ml IV Q30MIN PRN; Protocol PRN Reason: Hypoglycemia Sodium Chloride (Nacl 0.9% 1000 Ml) 1,000 mls @ 75 mls/hr IV DIRECT AYANNA Ceftriaxone Sodium (Rocephin/Ns 2 Gm/100 Ml) 2 gm in 100 mls @ 200 mls/hr IV Q24HR AYANNA; Protocol Azithromycin 500 mg/ Sodium (Chloride) 250 mls @ 250 mls/hr IV Q24HR AYANNA; Protocol Insulin Human Lispro (Humalog) 0 unit SUB-Q ACHS AYANNA; Protocol Review of Systems Constitutional: fever, chills Ears, nose, mouth and throat: no nasal congestion, no sore throat Cardiovascular: no chest pain, no palpitations Respiratory: cough, shortness of breath, no wheezing Gastrointestinal: no abdominal pain, no nausea, no vomiting, no diarrhea Genitourinary Male: no dysuria, no hematuria, no flank pain, no nocturia Musculoskeletal: no neck pain, no low back pain Integumentary: no rash, no pruritis Neurological: no headaches, no confusion Psychiatric: no anxiety, no depression Exam - Constitutional Vitals: Temp Pulse Resp BP Pulse Ox 99.0 F 94 H 20 133/85 95 05/18/20 21:20 05/18/20 21:20 05/18/20 21:21 05/18/20 21:20 05/18/20 21:21 General appearance: Present: no acute distress, well-nourished, obese - EENT Eyes: Present: PERRL, EOM intact. Absent: scleral icterus ENT: hearing intact, clear oral mucosa, dentition normal - Neck Neck: Present: supple, normal ROM - Respiratory Respiratory effort: normal Respiratory: bilateral: diminished - Cardiovascular Rhythm: regular Heart Sounds: Present: S1 & S2. Absent: gallop, systolic murmur, diastolic murmur, rub - Extremities Extremities: no ischemia, pulses intact, pulses symmetrical, No edema, Full ROM Peripheral Pulses: within normal limits - Abdominal General gastrointestinal: Present: soft, non-tender, non-distended, normal bowel sounds. Absent: mass - Integumentary Integumentary: Present: clear, warm, dry. Absent: rash - Musculoskeletal Musculoskeletal: strength equal bilaterally - Psychiatric Psychiatric: appropriate mood/affect, intact judgment & insight, memory intact, cooperative - Neurologic Neurologic: CNII-XII intact, no focal deficits, moves all extremities Results - Labs CBC & Chem 7: 05/18/20 15:40 05/18/20 20:05 Labs: Abnormal lab results 05/18/20 05/18/20 05/18/20 Range/Units 15:40 15:40 20:05 RBC 5.73 H (3.65-5.03) M/mm3 Hgb 15.9 H (11.8-15.2) gm/dl MCV 78 L (84-94) fl MCHC 36 H (32-34) % RDW 15.8 H (13.2-15.2) % [place] % (Auto) 10.2 H (0.0-7.3) % Seg Neutrophils % 70.1 H (40.0-70.0) % Chloride 95.9 L (98-107) mmol/L Glucose 221 H 198 H (75-100) mg/dL Ferritin (30.0-300.0) ng/mL AST 63 H (5-40) units/L ALT 67 H (7-56) units/L Lactate Dehydrogenase 591 H (91-180) units/L Total Protein 8.5 H (6.3-8.2) g/dL 05/18/20 Range/Units 20:05 RBC (3.65-5.03) M/mm3 Hgb (11.8-15.2) gm/dl MCV (84-94) fl MCHC (32-34) % RDW (13.2-15.2) % [place] % (Auto) (0.0-7.3) % Seg Neutrophils % (40.0-70.0) % Chloride (98-107) mmol/L Glucose (75-100) mg/dL Ferritin 485.8 H (30.0-300.0) ng/mL AST (5-40) units/L ALT (7-56) units/L Lactate Dehydrogenase (91-180) units/L Total Protein (6.3-8.2) g/dL Assessment and Plan - Patient Problems (1) Pneumonia due to COVID-19 virus Current Visit: Yes Status: Acute Plan to address problem: Patient placed on isolation precautions. He has been started on empiric IV antibiotics and IV steroids. We will place consult to infectious disease for evaluation and recommendation. (2) Hypoxia Current Visit: Yes Status: Acute Plan to address problem: Probably secondary to COVID-19. We will keep O2 saturation greater or equal to 94%. (3) DVT prophylaxis Current Visit: Yes Status: Acute Plan to address problem: Patient placed on subcutaneous Lovenox. (4) Full code status Current Visit: Yes Status: Acute
[2020-05-19] MEDS: DEXAMETHASONE 4 MG TAB PO SCH (09:16)
[2020-05-19] MEDS ORDERED: dexAMETHasone 4 MG/ML VIAL IV SCH (10:00)
[2020-05-19] MEDS ORDERED: AZITHROMYCIN 500 MG in SODIUM CHLORIDE 0.9% 250ML 250 ML IV SCH (10:00)
[2020-05-19] MEDS ORDERED: cefTRIAXone/NS 2 GM/100 ML 2 GM/100 ML BAG IV SCH (10:00)
--- NOTE | 2020-05-19 10:18 | Progress Note ---
Assessment and Plan Assessment and plan: 34-year-old male with known history of diabetes mellitus, hypertension and asthma presented to the emergency room today complaining of fever, cough and shortness of breath. Patient indicates that he was COVID-19 positive on May 14 2020. He denies any nausea or vomiting, no diarrhea, no abdominal pain, no chest pain, no headache or dizziness. Upon arrival in the emergency room patient had O2 saturation of about 88% on room air. Work-up in the emergency room reveals bilateral pulmonary infiltrate. He was started on empirical antibiotics and IV steroids. ID consulted from the ER. 05/19. He denies any shortness of breath this morning. On room air. Complains of cough worse when he lays on the right side. On steroids and antibiotics. ID evaluation pending - Patient Problems (1) Acute respiratory failure due to COVID-19 Current Visit: Yes Status: Acute Plan to address problem: Continue oxygen supplementation as needed COVID-19 treatment (2) Pneumonia due to COVID-19 virus Current Visit: Yes Status: Acute Plan to address problem: Continue antibiotics Continue IV dexamethasone Oxygen supplementation as needed. Currently breathing on room air this morning. ID evaluation (3) Diabetes mellitus Current Visit: Yes Status: Acute Plan to address problem: Patient takes metformin and Glipizide at home Monitor blood glucose levels (4) Hypertension Current Visit: Yes Status: Acute Plan to address problem: Amlodipine 10 mg daily (5) DVT prophylaxis Current Visit: Yes Status: Acute Plan to address problem: Lovenox 30 mg twice daily History Interval history: Patient evaluated at bedside this morning. Denies any shortness of breath. States that he has cough worse when he lays on the right side. Denies any fever this morning. Hospitalist Physical - Constitutional Vitals: Temp Pulse Resp BP Pulse Ox 99.0 F 88 94 H 151/98 99 05/18/20 21:20 05/19/20 02:55 05/19/20 02:55 05/19/20 02:55 05/19/20 01:00 General appearance: Present: no acute distress, well-nourished, obese - EENT Eyes: Present: PERRL - Respiratory Respiratory: bilateral: CTA - Cardiovascular Heart Sounds: Present: S1 & S2 - Extremities Extremities: No edema - Abdominal General gastrointestinal: soft, non-tender, non-distended, normal bowel sounds - Psychiatric Psychiatric: appropriate mood/affect - Neurologic Neurologic: CNII-XII intact Results - Labs CBC & Chem 7: 05/18/20 15:40 05/18/20 20:05 Labs: Laboratory Last Values WBC 6.8 K/mm3 (4.5-11.0) 05/18/20 15:40 RBC 5.73 M/mm3 (3.65-5.03) H 05/18/20 15:40 Hgb 15.9 gm/dl (11.8-15.2) H 05/18/20 15:40 Hct 44.8 % (35.5-45.6) 05/18/20 15:40 MCV 78 fl (84-94) L 05/18/20 15:40 MCH 28 pg (28-32) 05/18/20 15:40 MCHC 36 % (32-34) H 05/18/20 15:40 RDW 15.8 % (13.2-15.2) H 05/18/20 15:40 Plt Count 163 K/mm3 (140-440) 05/18/20 15:40 Lymph % (Auto) 19.1 % (13.4-35.0) 05/18/20 15:40 [place] % (Auto) 10.2 % (0.0-7.3) H 05/18/20 15:40 Eos % (Auto) 0.4 % (0.0-4.3) 05/18/20 15:40 Baso % (Auto) 0.2 % (0.0-1.8) 05/18/20 15:40 Lymph # (Auto) 1.3 K/mm3 (1.2-5.4) 05/18/20 15:40 [place] # (Auto) 0.7 K/mm3 (0.0-0.8) 05/18/20 15:40 Eos # (Auto) 0.0 K/mm3 (0.0-0.4) 05/18/20 15:40 Baso # (Auto) 0.0 K/mm3 (0.0-0.1) 05/18/20 15:40 Seg Neutrophils % 70.1 % (40.0-70.0) H 05/18/20 15:40 Seg Neutrophils # 4.8 K/mm3 (1.8-7.7) 05/18/20 15:40 D-Dimer 173.51 ng/mlDDU (0-234) 05/18/20 20:05 Sodium 137 mmol/L (137-145) 05/18/20 15:40 Potassium 4.0 mmol/L (3.6-5.0) 05/18/20 15:40 Chloride 95.9 mmol/L (98-107) L 05/18/20 15:40 Carbon Dioxide 24 mmol/L (22-30) 05/18/20 15:40 Anion Gap 21 mmol/L 05/18/20 15:40 BUN 11 mg/dL (9-20) 05/18/20 15:40 Creatinine 1.1 mg/dL (0.8-1.3) 05/18/20 15:40 Estimated GFR > 60 ml/min 05/18/20 15:40 BUN/Creatinine Ratio 10 % 05/18/20 15:40 Glucose 198 mg/dL (75-100) H 05/18/20 20:05 Lactic Acid 1.30 mmol/L (0.7-2.0) 05/18/20 15:40 Calcium 9.2 mg/dL (8.4-10.2) 05/18/20 15:40 Ferritin 485.8 ng/mL (30.0-300.0) H 05/18/20 20:05 Total Bilirubin 0.50 mg/dL (0.1-1.2) 05/18/20 15:40 AST 63 units/L (5-40) H 05/18/20 15:40 ALT 67 units/L (7-56) H 05/18/20 15:40 Alkaline Phosphatase 86 units/L (35-129) 05/18/20 15:40 Lactate Dehydrogenase 591 units/L (91-180) H 05/18/20 20:05 C-Reactive Protein 1.10 mg/dL (0.00-1.30) 05/18/20 20:05 Total Protein 8.5 g/dL (6.3-8.2) H 05/18/20 15:40 Albumin 4.1 g/dL (3.9-5) 05/18/20 15:40 Albumin/Globulin Ratio 0.9 % 05/18/20 15:40 Microbiology: Microbiology 05/18/20 15:46 Peripheral/Venous Blood Culture - Preliminary Culture in Progress 05/18/20 15:40 Peripheral/Venous Blood Culture - Preliminary Culture in Progress H[place]ard/IV: Voiding Method Toilet IV Catheter Type [Right Peripheral IV Antecubital] Active Medications - Current Medications Current Medications: Generic Name Dose Route Start Last Admin Trade Name Freq PRN Reason Stop Dose Admin Azithromycin 500 mg 05/20/20 10:00 Zithromax PO 05/22/20 10:01 QDAY AYANNA Dexamethasone 6 mg 05/19/20 10:00 05/19/20 09:16 Decadron PO 05/27/20 10:01 6 mg DAILY AYANNA Administration Dextrose 0 ml 05/18/20 22:11 D50w (25gm) Syringe IV Q30MIN PRN Hypoglycemia Protocol Enoxaparin Sodium 40 mg 05/19/20 22:00 Enoxaparin SUB-Q QDAY@2200 AYANNA Protocol Sodium Chloride 1,000 mls @ 75 mls/hr 05/18/20 22:15 Nacl 0.9% 1000 Ml IV DIRECT AYANNA Ceftriaxone Sodium 2 gm in 100 mls @ 200 mls/hr 05/19/20 10:00 05/19/20 09:15 Rocephin/Ns 2 Gm/100 Ml IV 200 mls/hr Q24HR AYANNA Administration Protocol Azithromycin 500 mg/ Sodium 250 mls @ 250 mls/hr 05/19/20 10:00 Chloride IV 05/19/20 15:00 Q24HR AYANNA Protocol Insulin Human Lispro 0 unit 05/19/20 07:30 Humalog SUB-Q ACHS AYANNA Protocol Labetalol HCl 10 mg 05/19/20 03:02 05/19/20 03:41 Labetalol IV 10 mg Q6H PRN Administration Blood Pressure
[2020-05-19] MEDS: INSULIN LISPRO 100 UNIT/ML VIAL 3 mL SUB-Q SCH ×4 (10:23→22:06)
[2020-05-19] MEDS: amLODIPine 10 MG TAB PO SCH (12:48)
[2020-05-19] MEDS: ENOXAPARIN 30 MG/0.3 ML INJ SUB-Q SCH ×2 (12:48→22:05)
[2020-05-19] MEDS: metFORMIN 500 MG TAB PO SCH ×2 (12:49→17:35)
[2020-05-19] MEDS ORDERED: REMDESIVIR 100 MG VIAL IV ONE (15:04)
[2020-05-19] MEDS ORDERED: REMDESIVIR 200 MG in SODIUM CHLORIDE 0.9% 250ML 250 ML IV ONE (15:04)
--- NOTE | 2020-05-19 15:06 | Consultation ---
History of Present Illness - Reason for Consult Consult date: 05/19/20 COVID pneumonia Requesting physician: HUNG HENRIQUEZ - History of Present Illness The patient is a 34-year-old male with diabetes, hypertension, asthma, morbid obesity was admitted to the hospital with fever, cough and shortness of breath. Patient tested positive for COVID-19 on May 14, 2020. With worsening shortness of breath, he came to the emergency room. Infectious diseases was consulted for additional evaluation. Patient was hypoxic on room air, currently requiring 2 L oxygen by nasal cannula. He has been afebrile today, had low- grade temperatures yesterday. D-dimer 173.51, ferritin 485, AST 63, ALT 67, LDH 591, procalcitonin 0.09, CRP 1.1. Review of Systems: reviewed in the chart, unable to obtain directly due to PPE preservation and minimize risk of transmission Past History Past Medical History: diabetes, hypertension, other (Asthma, Gout) Past Surgical History: No surgical history Social history: no significant social history Family history: no significant family history Medications and Allergies Allergies Allergy/AdvReac Type Severity Reaction Status Date / Time No Known Allergies Allergy Unverified 12/23/13 09:40 Home Medications Medication Instructions Recorded Confirmed Last Taken Type amLODIPine 10 mg PO QDAY #60 tablet 03/20/19 05/19/20 Unknown Rx glipiZIDE [Glucotrol] 5 mg PO BID #60 tablet 03/20/19 05/19/20 Unknown Rx metFORMIN [Glucophage] 500 mg PO BID #60 tablet 03/20/19 05/19/20 Unknown Rx Active Meds: Active Medications Amlodipine Besylate (Amlodipine) 10 mg PO DAILY [facility] Last Admin: 05/19/20 12:48 Dose: 10 mg Documented by: Dexamethasone (Decadron) 6 mg PO DAILY [facility] Stop: 05/27/20 10:01 Last Admin: 05/19/20 09:16 Dose: 6 mg Documented by: Dextrose (D50w (25gm) Syringe) 0 ml IV Q30MIN PRN; Protocol PRN Reason: Hypoglycemia Enoxaparin Sodium (Enoxaparin) 30 mg SUB-Q BID [facility] Last Admin: 05/19/20 12:48 Dose: 30 mg Documented by: Glipizide (Glucotrol) 5 mg PO BIDDIAB [facility] Sodium Chloride (Nacl 0.9% 1000 Ml) 1,000 mls @ 75 mls/hr IV DIRECT AYANNA REMDESIVIR 200 mg/ Sodium (Chloride) 250 mls @ 500 mls/hr IV ONCE ONE Stop: 05/19/20 15:33 REMDESIVIR 100 mg/ Sodium (Chloride) 250 mls @ 500 mls/hr IV Q24HR@2100 AYANNA Stop: 05/23/20 21:29 Insulin Human Lispro (Humalog) 0 unit SUB-Q ACHS AYANNA; Protocol Last Admin: 05/19/20 12:50 Dose: 3 unit Documented by: Labetalol HCl (Labetalol) 10 mg IV Q6H PRN PRN Reason: Blood Pressure Last Admin: 05/19/20 03:41 Dose: 10 mg Documented by: Metformin HCl (Glucophage) 500 mg PO BIDDIAB [facility] Last Admin: 05/19/20 12:49 Dose: 500 mg Documented by: Sodium Chloride (Nacl 0.9%) 50 ml IV Q24H [facility] Stop: 05/23/20 16:01 Physical Examination - Physical Exam Narrative exam: Physical Exam (reviewed in chart due to PPE conservation and minimize risk of transmission) Constitutional: limited due to PPE conservation strategy Head, Ears, Nose: limited due to PPE conservation strategy Eyes: limited due to PPE conservation strategy Neck: limited due to PPE conservation strategy Oral: limited due to PPE conservation strategy Cardiovascular: limited due to PPE conservation strategy Respiratory: limited due to PPE conservation strategy GI: limited due to PPE conservation strategy Musculoskeletal: limited due to PPE conservation strategy Skin: limited due to PPE conservation strategy Hem/Lymphatic: limited due to PPE conservation strategy Psych: limited due to PPE conservation strategy Neurological: limited due to PPE conservation strategy - Constitutional Vitals: Vital Signs Temp Pulse Resp BP Pulse Ox 98.0 F 84 22 148/92 92 05/19/20 11:39 05/19/20 11:39 05/19/20 11:39 05/19/20 12:48 05/19/20 11:39 Temperature -Last 24 Hours Temperature 98.0 F Temperature 99.0 F Temperature 100.5 F Temperature 100.6 F Results - Labs CBC & Chem 7: 05/18/20 15:40 05/18/20 20:05 Labs: Abnormal lab results 05/18/20 05/18/20 05/18/20 Range/Units 15:40 15:40 20:05 RBC 5.73 H (3.65-5.03) M/mm3 Hgb 15.9 H (11.8-15.2) gm/dl MCV 78 L (84-94) fl MCHC 36 H (32-34) % RDW 15.8 H (13.2-15.2) % [place] % (Auto) 10.2 H (0.0-7.3) % Seg Neutrophils % 70.1 H (40.0-70.0) % Chloride 95.9 L (98-107) mmol/L Glucose 221 H 198 H (75-100) mg/dL POC Glucose (70-105) Ferritin (30.0-300.0) ng/mL AST 63 H (5-40) units/L ALT 67 H (7-56) units/L Lactate Dehydrogenase 591 H (91-180) units/L Total Protein 8.5 H (6.3-8.2) g/dL 05/18/20 05/19/20 05/19/20 Range/Units 20:05 10:28 11:57 RBC (3.65-5.03) M/mm3 Hgb (11.8-15.2) gm/dl MCV (84-94) fl MCHC (32-34) % RDW (13.2-15.2) % [place] % (Auto) (0.0-7.3) % Seg Neutrophils % (40.0-70.0) % Chloride (98-107) mmol/L Glucose (75-100) mg/dL POC Glucose 218 H 240 H (70-105) Ferritin 485.8 H (30.0-300.0) ng/mL AST (5-40) units/L ALT (7-56) units/L Lactate Dehydrogenase (91-180) units/L Total Protein (6.3-8.2) g/dL - Imaging and Cardiology Chest x-ray: report reviewed, image reviewed (bilateral pneumonia) Assessment and Plan Cultures: Coronavirus PCR: Positive as outpatient on 05/14/2020 A/P: 34-year-old male with diabetes, hypertension, asthma, morbid obesity was admitted to the hospital with fever, cough and shortness of breath: #Bilateral pneumonia: Secondary to COVID-19, patient was positive as an ou tpatient #Acute hypoxic respiratory failure: On supplemental oxygen. #Morbid obesity #Diabetes mellitus: Maintain tight glycemic control, especially while on steroids. Recs: IV/PO Dexamethasone 6 mg daily x 10 days IV Remdesivir ordered x 5 days Procalcitonin is low, antibiotics discontinued prophylactic anticoagulation based on d-dimer trend ferritin, LDH, d-dimer, CRP every 2-3 days for risk stratification and to assess disease progression Yolanda Elias MD, FACP [facility] ([facility] O: [phone] F: [phone]
[2020-05-19] MEDS ORDERED: SODIUM CHLORIDE 0.9% 50 ML IVPB IV SCH (16:00)
[2020-05-19] MEDS: glipiZIDE 5 MG TAB PO SCH (17:35)
[2020-05-19] MEDS ORDERED: ENOXAPARIN 40 MG/0.4 ML INJ SUB-Q SCH ×2 (22:00)
[2020-05-20 01:41] LABS: Hematocrit 45.1 % (35.5-45.6); Hemoglobin 15.5 gm/dl (11.8-15.2); Mean Corpuscular HGB Conc 34 % (32-34); Mean Corpuscular Volume 79 fl (84-94); Red Blood Count 5.68 M/mm3 (3.65-5.03); Red Cell Distribution Width 15.4 % (13.2-15.2)
[2020-05-20 01:45] LABS: Platelet Count 173 K/mm3 (140-440)
[2020-05-20 01:56] LABS: Alanine Aminotransferase 59 units/L (7-56); Albumin 3.9 g/dL (3.9-5); BUN/Creatinine Ratio 17; Blood Urea Nitrogen 15 mg/dL (9-20); Calcium 8.9 mg/dL (8.4-10.2); Hemolysis Index 15
[2020-05-20 03:50] LABS: Basophils % (Manual) 0 % (0.0-1.8); Eosinophils % (Manual) 0 % (0.0-4.3); Total Cells Counted 100
[2020-05-20 03:51] LABS: Target Cells Few
[2020-05-20 03:52] LABS: Platelet Estimate Consistent w Auto
[2020-05-20] MEDS: glipiZIDE 5 MG TAB PO SCH ×2 (08:38→17:43)
[2020-05-20] MEDS: metFORMIN 500 MG TAB PO SCH ×2 (08:38→17:43)
[2020-05-20] MEDS: INSULIN LISPRO 100 UNIT/ML VIAL 3 mL SUB-Q SCH ×4 (08:39→23:24)
[2020-05-20] MEDS: amLODIPine 10 MG TAB PO SCH (09:51)
[2020-05-20] MEDS: ENOXAPARIN 30 MG/0.3 ML INJ SUB-Q SCH ×2 (09:52→21:15)
[2020-05-20] MEDS: DEXAMETHASONE 4 MG TAB PO SCH (09:52)
[2020-05-20] MEDS ORDERED: amLODIPine 5 MG TAB PO SCH (10:00)
[2020-05-20] MEDS ORDERED: AZITHROMYCIN 250 MG TAB PO SCH (10:00)
[2020-05-20] MEDS ORDERED: amLODIPine 10 MG TAB PO ONE (10:21)
--- NOTE | 2020-05-20 10:39 | Progress Note ---
Assessment and Plan Assessment and plan: 34-year-old male with known history of diabetes mellitus, hypertension and asthma presented to the emergency room today complaining of fever, cough and shortness of breath. Patient indicates that he was COVID-19 positive on May 14 2020. He denies any nausea or vomiting, no diarrhea, no abdominal pain, no chest pain, no headache or dizziness. Upon arrival in the emergency room patient had O2 saturation of about 88% on room air. Work-up in the emergency room reveals bilateral pulmonary infiltrate. He was started on empirical antibiotics and IV steroids. ID consulted from the ER. 05/19. He denies any shortness of breath this morning. On room air. Complains of cough worse when he lays on the right side. On steroids and antibiotics. ID evaluation pending 05/20. Now on remdesivir. ID recs appreciated. He is on nasal cannula this AM. Denies any chills. - Patient Problems (1) Acute respiratory failure due to COVID-19 Current Visit: Yes Status: Acute Plan to address problem: Continue oxygen supplementation as needed COVID-19 treatment (2) Pneumonia due to COVID-19 virus Current Visit: Yes Status: Acute Plan to address problem: Continue IV dexamethasone Continue Remdesivir ID following. Continue oxygen supplementation (3) Diabetes mellitus Current Visit: Yes Status: Acute Plan to address problem: Patient takes metformin and Glipizide at home. Medications resumed Monitor blood glucose levels (4) Hypertension Current Visit: Yes Status: Acute Plan to address problem: Amlodipine 10 mg daily (5) DVT prophylaxis Current Visit: Yes Status: Acute Plan to address problem: Lovenox 30 mg twice daily History Interval history: Patient evaluated at bedside this morning. Has some breathing difficulty breathing with ambulation. On remdesivir and dexamethasone for COVID. ID following. Hospitalist Physical - Constitutional Vitals: Temp Pulse Resp BP Pulse Ox 97.8 F 84 18 128/71 95 05/20/20 04:15 05/20/20 09:51 05/20/20 04:15 05/20/20 09:51 05/20/20 04:15 General appearance: Present: no acute distress, well-nourished, obese - EENT Eyes: Present: PERRL - Neck Neck: Present: supple - Respiratory Respiratory: bilateral: diminished - Cardiovascular Heart Sounds: Present: S1 & S2 - Extremities Extremities: No edema - Abdominal General gastrointestinal: soft, non-tender, non-distended, normal bowel sounds - Psychiatric Psychiatric: appropriate mood/affect - Neurologic Neurologic: CNII-XII intact - Allied Health Allied health notes reviewed: nursing Results - Labs CBC & Chem 7: 05/20/20 00:42 10 00:42 Labs: Laboratory Last Values WBC 4.6 K/mm3 (4.5-11.0) 05/20/20 00:42 RBC 5.68 M/mm3 (3.65-5.03) H 05/20/20 00:42 Hgb 15.5 gm/dl (11.8-15.2) H 05/20/20 00:42 Hct 45.1 % (35.5-45.6) 05/20/20 00:42 MCV 79 fl (84-94) L 05/20/20 00:42 MCH 27 pg (28-32) L 05/20/20 00:42 MCHC 34 % (32-34) 05/20/20 00:42 RDW 15.4 % (13.2-15.2) H 05/20/20 00:42 Plt Count 173 K/mm3 (140-440) 05/20/20 00:42 Lymph % (Auto) 19.1 % (13.4-35.0) 05/18/20 15:40 [place] % (Auto) Product Marketing Intern 05/20/20 00:42 Eos % (Auto) 0.4 % (0.0-4.3) 05/18/20 15:40 Baso % (Auto) 0.2 % (0.0-1.8) 05/18/20 15:40 Lymph # (Auto) 1.3 K/mm3 (1.2-5.4) 05/18/20 15:40 [place] # (Auto) 0.7 K/mm3 (0.0-0.8) 05/18/20 15:40 Eos # (Auto) 0.0 K/mm3 (0.0-0.4) 05/18/20 15:40 Baso # (Auto) 0.0 K/mm3 (0.0-0.1) 05/18/20 15:40 Add Manual Diff Complete 05/20/20 00:42 Total Counted 100 05/20/20 00:42 Seg Neutrophils % 70.1 % (40.0-70.0) H 05/18/20 15:40 Seg Neuts % (Manual) 57.0 % (40.0-70.0) 05/20/20 00:42 Band Neutrophils % 0 % 05/20/20 00:42 Lymphocytes % (Manual) 39.0 % (13.4-35.0) H 05/20/20 00:42 Reactive Lymphs % (Man) 0 % 05/20/20 00:42 Monocytes % (Manual) 4.0 % (0.0-7.3) 05/20/20 00:42 Eosinophils % (Manual) 0 % (0.0-4.3) 05/20/20 00:42 Basophils % (Manual) 0 % (0.0-1.8) 05/20/20 00:42 Metamyelocytes % 0 % 05/20/20 00:42 Myelocytes % 0 % 05/20/20 00:42 Promyelocytes % 0 % 05/20/20 00:42 Blast Cells % 0 % 05/20/20 00:42 Nucleated RBC % Not Reportable 05/20/20 00:42 Seg Neutrophils # 4.8 K/mm3 (1.8-7.7) 05/18/20 15:40 Seg Neutrophils # Man 2.6 K/mm3 (1.8-7.7) 05/20/20 00:42 Band Neutrophils # 0.0 K/mm3 05/20/20 00:42 Lymphocytes # (Manual) 1.8 K/mm3 (1.2-5.4) 05/20/20 00:42 Abs React Lymphs (Man) 0.0 K/mm3 05/20/20 00:42 Monocytes # (Manual) 0.2 K/mm3 (0.0-0.8) 05/20/20 00:42 Eosinophils # (Manual) 0.0 K/mm3 (0.0-0.4) 05/20/20 00:42 Basophils # (Manual) 0.0 K/mm3 (0.0-0.1) 05/20/20 00:42 Metamyelocytes # 0.0 K/mm3 05/20/20 00:42 Myelocytes # 0.0 K/mm3 05/20/20 00:42 Promyelocytes # 0.0 K/mm3 05/20/20 00:42 Blast Cells # 0.0 K/mm3 05/20/20 00:42 WBC Morphology Not Reportable 05/20/20 00:42 Hypersegmented Neuts Not Reportable 05/20/20 00:42 Hyposegmented Neuts Not Reportable 05/20/20 00:42 Hypogranular Neuts Not Reportable 05/20/20 00:42 Smudge Cells Not Reportable 05/20/20 00:42 Toxic Granulation Not Reportable 05/20/20 00:42 Toxic Vacuolation Not Reportable 05/20/20 00:42 Dohle Bodies Not Reportable 05/20/20 00:42 Pelger-Huet Anomaly Not Reportable 05/20/20 00:42 Josseline Rods Not Reportable 05/20/20 00:42 Platelet Estimate Consistent w auto 05/20/20 00:42 Clumped Platelets Not Reportable 05/20/20 00:42 Plt Clumps, EDTA Not Reportable 05/20/20 00:42 Large Platelets Not Reportable 05/20/20 00:42 Giant Platelets Not Reportable 05/20/20 00:42 Platelet Satelliting Not Reportable 05/20/20 00:42 Plt Morphology Comment Not Reportable 05/20/20 00:42 RBC Morphology Not Reportable 05/20/20 00:42 Dimorphic RBCs Not Reportable 05/20/20 00:42 Polychromasia Not Reportable 05/20/20 00:42 Hypochromasia Not Reportable 05/20/20 00:42 Poikilocytosis Not Reportable 05/20/20 00:42 Anisocytosis Not Reportable 05/20/20 00:42 Microcytosis Not Reportable 05/20/20 00:42 Macrocytosis Not Reportable 05/20/20 00:42 Spherocytes Not Reportable 05/20/20 00:42 Pappenheimer Bodies Not Reportable 05/20/20 00:42 Sickle Cells Not Reportable 05/20/20 00:42 Target Cells Few 05/20/20 00:42 Tear Drop Cells Not Reportable 05/20/20 00:42 Ovalocytes Not Reportable 05/20/20 00:42 Helmet Cells Not Reportable 05/20/20 00:42 Ibarra-Pollock Bodies Not Reportable 05/20/20 00:42 Dickens Rings Not Reportable 05/20/20 00:42 [place] Cells Not Reportable 05/20/20 00:42 Bite Cells Not Reportable 05/20/20 00:42 Crenated Cell Not Reportable 05/20/20 00:42 Elliptocytes Not Reportable 05/20/20 00:42 Acanthocytes (Spur) Not Reportable 05/20/20 00:42 Rouleaux Not Reportable 05/20/20 00:42 Hemoglobin C Crystals Not Reportable 05/20/20 00:42 Schistocytes Not Reportable 05/20/20 00:42 Malaria parasites Not Reportable 05/20/20 00:42 Javier Bodies Not Reportable 05/20/20 00:42 Hem Pathologist Commnt No 05/20/20 00:42 D-Dimer 173.51 ng/mlDDU (0-234) 05/18/20 20:05 Sodium 141 mmol/L (137-145) 05/20/20 00:42 Potassium 4.2 mmol/L (3.6-5.0) 05/20/20 00:42 Chloride 99.1 mmol/L (98-107) 05/20/20 00:42 Carbon Dioxide 26 mmol/L (22-30) 05/20/20 00:42 Anion Gap 20 mmol/L 05/20/20 00:42 BUN 15 mg/dL (9-20) 05/20/20 00:42 Creatinine 0.9 mg/dL (0.8-1.3) 05/20/20 00:42 Estimated GFR > 60 ml/min 05/20/20 00:42 BUN/Creatinine Ratio 17 % 05/20/20 00:42 Glucose 163 mg/dL (75-100) H 05/20/20 00:42 POC Glucose 138 (70-105) H 05/20/20 07:48 Lactic Acid 1.30 mmol/L (0.7-2.0) 05/18/20 15:40 Calcium 8.9 mg/dL (8.4-10.2) 05/20/20 00:42 Ferritin 485.8 ng/mL (30.0-300.0) H 05/18/20 20:05 Total Bilirubin 0.20 mg/dL (0.1-1.2) 05/20/20 00:42 AST 64 units/L (5-40) H 05/20/20 00:42 ALT 59 units/L (7-56) H 05/20/20 00:42 Alkaline Phosphatase 76 units/L (35-129) 05/20/20 00:42 Lactate Dehydrogenase 591 units/L (91-180) H 05/18/20 20:05 C-Reactive Protein 1.10 mg/dL (0.00-1.30) 05/18/20 20:05 Total Protein 8.3 g/dL (6.3-8.2) H 05/20/20 00:42 Albumin 3.9 g/dL (3.9-5) 05/20/20 00:42 Albumin/Globulin Ratio 0.9 % 05/20/20 00:42 Procalcitonin 0.09 ng/mL (<0.15) 05/18/20 21:04 Microbiology: Microbiology 05/18/20 15:46 Peripheral/Venous Blood Culture - Preliminary NO GROWTH AFTER 24 HOURS 05/18/20 15:40 Peripheral/Venous Blood Culture - Preliminary NO GROWTH AFTER 24 HOURS [place]/IV: Voiding Method Toilet IV Catheter Type [Right Peripheral IV Antecubital] Active Medications - Current Medications Current Medications: Generic Name Dose Route Start Last Admin Trade Name Freq PRN Reason Stop Dose Admin Amlodipine Besylate 10 mg 05/19/20 11:00 05/20/20 09:51 Amlodipine PO 10 mg DAILY AYANNA Administration Dexamethasone 6 mg 05/19/20 10:00 05/20/20 09:52 Decadron PO 05/27/20 10:01 6 mg DAILY AYANNA Administration Dextrose 0 ml 05/18/20 22:11 D50w (25gm) Syringe IV Q30MIN PRN Hypoglycemia Protocol Enoxaparin Sodium 30 mg 05/19/20 11:00 05/20/20 09:52 Enoxaparin SUB-Q 30 mg BID AYANNA Administration Glipizide 5 mg 05/19/20 17:00 05/20/20 08:38 Glucotrol PO 5 mg BIDDIAB AYANNA Administration Sodium Chloride 1,000 mls @ 75 mls/hr 05/18/20 22:15 Nacl 0.9% 1000 Ml IV DIRECT AYANNA REMDESIVIR 100 mg/ Sodium 250 mls @ 500 mls/hr 05/20/20 21:00 Chloride IV 05/23/20 21:29 Q24HR@2100 AYANNA Insulin Human Lispro 0 unit 05/19/20 07:30 05/20/20 08:39 Humalog SUB-Q Not Given ACHS [facility] Protocol Labetalol HCl 10 mg 05/19/20 03:02 05/19/20 17:48 Labetalol IV 10 mg Q6H PRN Administration Blood Pressure Metformin HCl 500 mg 05/19/20 11:00 05/20/20 08:38 Glucophage PO 500 mg BIDDIAB [facility] Administration Sodium Chloride 50 ml 05/20/20 21:00 Nacl 0.9% IV 05/23/20 21:01 Q24HR@2100 [facility] Nutrition/Malnutrition Assess - Dietary Evaluation Nutrition/Malnutrition Findings: Nutrition Notes Start: 05/19/20 12:0 5 Freq: Status: Active Protocol: Document 05/19/20 12:07 LM (Rec: 05/19/20 12:15 LM [id number]) Nutrition Notes Need for Assessment generated from: MD Order Initial or Follow up Brief Note Current Diagnosis Diabetes,Hypertension Other Pertinent Diagnosis COVID-19 pneu, Asthma Current Diet no diet Labs/Tests POC glu 218 Pertinent Medications Decadron Height 5 ft 8 in Weight 147.27 kg [place] Body Weight (kg) 70.00 BMI 49.4 Weight Status Morbidly Obese Subjective/Other Information MD consult for diet education. Pt did not answer phone 2x. Pt with edema. Burn Absent Trauma Absent Minimum of two criteria No Fluid Accumulation Mild (non-severe) #1 Nutrition Diagnosis Inadequate oral intake Etiology Chronic illness As Evidenced by Signs and Symptoms Pt NPO Is patient on ventilator? No Is Patient Ambulatory and/or Out of Bed Yes REE-([facility]-ambulatory/OOB) [ [id number] [id number]] Kcal/Kg value to use for calculation 12 Approximate Energy Requirements Using 1767 kcal/Kg Calculation Used for Recommendations Kcal/kg Additional Notes Protein: 87-109g (0.8-1g/kg using AdjBW 109kg) Fluid: 1ml/kcal Nutrition Intervention Change Diet Order: Cardiac/consistent CHO when medically feasible Goal #1 Diet advancement Anticipated Discharge Needs: Cardiac/consistent CHO Follow-Up By: 05/21/20 Additional Comments F/U for diet advancement, intakes, diet education
--- NOTE | 2020-05-20 13:19 | Progress Note ---
Assessment and Plan Cultures: Coronavirus PCR: Positive as outpatient on 05/14/2020 A/P: 34-year-old male with diabetes, hypertension, asthma, morbid obesity was admitted to the hospital with fever, cough and shortness of breath: #Bilateral pneumonia: Secondary to COVID-19, patient was positive as an outpatient #Acute hypoxic respiratory failure: On supplemental oxygen. #Morbid obesity #Diabetes mellitus: Maintain tight glycemic control, especially while on steroids. #Mild LFT elevation: likely from COVID-19. Recs: IV/PO Dexamethasone 6 mg daily, D2 of 10 IV Remdesivir, D2 of 5 prophylactic anticoagulation based on d-dimer trend ferritin, LDH, d-dimer, CRP every 2-3 days for risk stratification and to assess disease progression check ambulatory sats, if hypoxia is resolved, can potentially discharge after completed 3 days of Remdesivir. Does not need to finish the entire 5 day course. Yolanda Elias MD, FACP [facility] ([facility] O: [phone] F: [phone] Subjective Date of service: 05/20/20 Interval history: No fever. On oxygen. Objective - Exam Narrative Exam: Physical Exam (reviewed in chart due to PPE conservation and minimize risk of transmission) Constitutional: limited due to PPE conservation strategy Head, Ears, Nose: limited due to PPE conservation strategy Eyes: limited due to PPE conservation strategy Neck: limited due to PPE conservation strategy Oral: limited due to PPE conservation strategy Cardiovascular: limited due to PPE conservation strategy Respiratory: limited due to PPE conservation strategy GI: limited due to PPE conservation strategy Musculoskeletal: limited due to PPE conservation strategy Skin: limited due to PPE conservation strategy Hem/Lymphatic: limited due to PPE conservation strategy Psych: limited due to PPE conservation strategy Neurological: limited due to PPE conservation strategy - Constitutional Vitals: Vital Signs Temp Pulse Resp BP Pulse Ox 98.9 F 96 H 24 128/82 96 05/20/20 11:37 05/20/20 11:37 05/20/20 11:37 05/20/20 11:37 05/20/20 11:37 Temperature -Last 24 Hours Temperature 98.9 F Temperature 97.8 F Temperature 97.6 F Temperature 97.9 F - Labs CBC & Chem 7: 05/20/20 00:42 05/20/20 00:42 Labs: Abnormal lab results 05/19/20 05/19/20 05/20/20 Range/Units 17:22 21:46 00:42 RBC (3.65-5.03) M/mm3 Hgb (11.8-15.2) gm/dl MCV (84-94) fl MCH (28-32) pg RDW (13.2-15.2) % Lymphocytes % (Manual) (13.4-35.0) % Glucose 163 H (75-100) mg/dL POC Glucose 211 H 216 H (70-105) AST 64 H (5-40) units/L ALT 59 H (7-56) units/L Total Protein 8.3 H (6.3-8.2) g/dL 05/20/20 05/20/20 05/20/20 Range/Units 00:42 07:48 11:53 RBC 5.68 H (3.65-5.03) M/mm3 Hgb 15.5 H (11.8-15.2) gm/dl MCV 79 L (84-94) fl MCH 27 L (28-32) pg RDW 15.4 H (13.2-15.2) % Lymphocytes % (Manual) 39.0 H (13.4-35.0) % Glucose (75-100) mg/dL POC Glucose 138 H 237 H (70-105) AST (5-40) units/L ALT (7-56) units/L Total Protein (6.3-8.2) g/dL
[2020-05-20] MEDS ORDERED: SODIUM CHLORIDE 0.9% 50 ML IVPB IV SCH (21:00)
[2020-05-20] MEDS ORDERED: REMDESIVIR 100 MG in SODIUM CHLORIDE 0.9% 250ML 250 ML IV SCH (21:00)
[2020-05-21 01:37] LABS: Basophils % (Auto) 0.3 % (0.0-1.8); Hematocrit 42.1 % (35.5-45.6); Hemoglobin 14.8 gm/dl (11.8-15.2); Lymphocytes # (Auto) 1.1 K/mm3 (1.2-5.4); Lymphocytes % (Auto) 18.1 % (13.4-35.0); Mean Corpuscular HGB Conc 35 % (32-34); Mean Corpuscular Volume 77 fl (84-94); Monocytes # (Auto) 0.7 K/mm3 (0.0-0.8); Platelet Count 184 K/mm3 (140-440); Red Blood Count 5.44 M/mm3 (3.65-5.03); Red Cell Distribution Width 15.7 % (13.2-15.2)
[2020-05-21 01:39] LABS: Alanine Aminotransferase 51 units/L (7-56); BUN/Creatinine Ratio 17; Blood Urea Nitrogen 15 mg/dL (9-20); Calcium 9.1 mg/dL (8.4-10.2); Hemolysis Index 13
[2020-05-21] MEDS: metFORMIN 500 MG TAB PO SCH (08:24)
[2020-05-21] MEDS: glipiZIDE 5 MG TAB PO SCH (08:24)
[2020-05-21] MEDS: INSULIN LISPRO 100 UNIT/ML VIAL 3 mL SUB-Q SCH ×2 (08:27→12:54)
[2020-05-21] MEDS: amLODIPine 10 MG TAB PO SCH (09:36)
[2020-05-21] MEDS: DEXAMETHASONE 4 MG TAB PO SCH (09:36)
[2020-05-21] MEDS: ENOXAPARIN 30 MG/0.3 ML INJ SUB-Q SCH (09:36)
--- NOTE | 2020-05-21 11:43 | Discharge Summary ---
Providers - Providers Date of Admission: 05/21/20 11:22 Date of discharge: 05/21/20 Attending physician: JAMES RHOADES 05/18/20 21:24 Consult to Physician [CONS] Stat Comment: Consulting Provider: EMANUEL LEE Physician Instructions: Reason For Exam: COVID pneumonia 05/18/20 22:12 Consult to Dietitian/Nutrition [CONS] Routine Physician Instructions: Reason For Exam: Reason for Consult: Diet education [facility] Reason for admission: Shortness of breath Condition: Stable Hospital course: 34-year-old male with known history of diabetes mellitus, hypertension and asthma presented to the emergency room today complaining of fever, cough and shortness of breath. Patient indicates that he was COVID-19 positive on May 14 2020. He denies any nausea or vomiting, no diarrhea, no abdominal pain, no chest pain, no headache or dizziness. Upon arrival in the emergency room patient had O2 saturation of about 88% on room air. Work-up in the emergency room reveals bilateral pulmonary infiltrate. He was started on empirical antibiotics and IV steroids. ID consulted from the ER. 05/19. He denies any shortness of breath this morning. On room air. Complains of cough worse when he lays on the right side. On steroids and antibiotics. ID evaluation pending 05/20. Now on remdesivir. ID recs appreciated. He is on nasal cannula this AM. Denies any chills. 05/21. Patient is able to ambulate without oxygen and his sats remained in the 94%. Will get last dose of remdesivir this morning. He will complete steroids at home. He is stable to be discharged today. He has been advised to self isolate for 14 days. He agrees with treatment/plan Disposition: DC-01 TO HOME OR SELFCARE - Discharge Diagnoses (1) Acute respiratory failure due to COVID-19 Status: Acute (2) Pneumonia due to COVID-19 virus Status: Acute (3) Diabetes mellitus Status: Acute (4) Hypertension Status: Acute (5) DVT prophylaxis Status: Acute Core Measure Documentation - Palliative Care Palliative Care/ Comfort Measures: Not Applicable - Core Measures Any of the following diagnoses?: none Exam - Constitutional Vitals: Temp Pulse Resp BP Pulse Ox 32.1 F L 86 16 132/97 97 05/21/20 06:43 05/21/20 09:36 05/21/20 06:43 05/21/20 09:36 05/21/20 06:43 General appearance: Present: no acute distress, well-nourished - EENT Eyes: Present: PERRL ENT: hearing intact, clear oral mucosa - Neck Neck: Present: supple, normal ROM - Respiratory Respiratory effort: normal Respiratory: bilateral: CTA - Cardiovascular Heart Sounds: Present: S1 & S2. Absent: rub, click - Extremities Extremities: pulses symmetrical, No edema Peripheral Pulses: within normal limits - Abdominal General gastrointestinal: Present: soft, non-tender, non-distended, normal bowel sounds Male genitourinary: Present: normal - Integumentary Integumentary: Present: clear, warm, dry - Musculoskeletal Musculoskeletal: gait normal, strength equal bilaterally - Psychiatric Psychiatric: appropriate mood/affect, intact judgment & insight - Neurologic Neurologic: CNII-XII intact, moves all extremities Plan Diet: low cholesterol, diabetic Additional Instructions: Continue dexamethasone as ordered. Continue usual home medications. Safe isolation for 14 days. Follow-up with PCP in 2 weeks Follow up with: IGOR ABRAHAM MD [Primary Care Provider] - 3-5 Days Prescriptions: dexAMETHasone [Dexamethasone] 6 mg PO DAILY #7 tablet Apixaban [Eliquis] 2.5 mg PO BID #14 tablet
[2020-05-21] MEDS ORDERED: REMDESIVIR 100 MG in SODIUM CHLORIDE 0.9% 250ML 250 ML IV ONE (12:00)
--- NOTE | 2020-05-21 14:18 | Progress Note ---
Assessment and Plan Cultures: Coronavirus PCR: Positive as outpatient on 05/14/2020 A/P: 34-year-old male with diabetes, hypertension, asthma, morbid obesity was admitted to the hospital with fever, cough and shortness of breath: #Bilateral pneumonia: Secondary to COVID-19, patient was positive as an outpatient #Acute hypoxic respiratory failure: On supplemental oxygen. #Morbid obesity #Diabetes mellitus: Maintain tight glycemic control, especially while on steroids. #Mild LFT elevation: likely from COVID-19. Recs: IV/PO Dexamethasone 6 mg daily, D3 of 10 Given significant improvement, OK for discharge. Does not need to finish the entire 5 day course of Remdesivir Yolanda Elias MD, FACP [facility] ([facility] O: [phone] F: [phone] Subjective Date of service: 05/21/20 Interval history: No fever. On room air with good ambulatory sats. Objective - Exam Narrative Exam: Physical Exam (reviewed in chart due to PPE conservation and minimize risk of transmission) Constitutional: limited due to PPE conservation strategy Head, Ears, Nose: limited due to PPE conservation strategy Eyes: limited due to PPE conservation strategy Neck: limited due to PPE conservation strategy Oral: limited due to PPE conservation strategy Cardiovascular: limited due to PPE conservation strategy Respiratory: limited due to PPE conservation strategy GI: limited due to PPE conservation strategy Musculoskeletal: limited due to PPE conservation strategy Skin: limited due to PPE conservation strategy Hem/Lymphatic: limited due to PPE conservation strategy Psych: limited due to PPE conservation strategy Neurological: limited due to PPE conservation strategy - Constitutional Vitals: Vital Signs Temp Pulse Resp BP Pulse Ox 32.1 F L 86 16 132/97 97 05/21/20 06:43 05/21/20 09:36 05/21/20 06:43 05/21/20 09:36 05/21/20 06:43 Temperature -Last 24 Hours Temperature 32.1 F Temperature 98.1 F Temperature 98.7 F - Labs CBC & Chem 7: 05/21/20 00:39 05/21/20 00:39 Labs: Abnormal lab results 05/20/20 05/20/20 05/21/20 Range/Units 16:39 23:03 00:39 RBC (3.65-5.03) M/mm3 MCV (84-94) fl MCH (28-32) pg MCHC (32-34) % RDW (13.2-15.2) % Foard % (Auto) (0.0-7.3) % Lymph # (Auto) (1.2-5.4) K/mm3 Chloride 97.0 L (98-107) mmol/L Glucose 186 H (75-100) mg/dL POC Glucose 287 H 213 H (70-105) AST 55 H (5-40) units/L 05/21/20 05/21/20 05/21/20 Range/Units 00:39 08:41 11:38 RBC 5.44 H (3.65-5.03) M/mm3 MCV 77 L (84-94) fl MCH 27 L (28-32) pg MCHC 35 H (32-34) % RDW 15.7 H (13.2-15.2) % Foard % (Auto) 12.0 H (0.0-7.3) % Lymph # (Auto) 1.1 L (1.2-5.4) K/mm3 Chloride (98-107) mmol/L Glucose (75-100) mg/dL POC Glucose 130 H 171 H (70-105) AST (5-40) units/L
[2020-05-21 15:38] VITALS: BP 144/88
== END 2020-05-21 14:36 | disposition home or self-care (01) ==
LOC: ED 15:15 → 3A 21:27 → INTOOBSV 05-21 11:22 → OBSVTOIN 05-21 11:22
PROVIDERS: ADMIT Internal Medicine Geriatric Medicine; ATTEND Internal Medicine
DX: U07.1 COVID-19 (principal); J96.01 Acute respiratory failure with hypoxia; J12.89 Other viral pneumonia; I10 Essential (primary) hypertension; E11.9 Type 2 diabetes mellitus without complications; J45.909 Unspecified asthma, uncomplicated; M10.9 Gout, unspecified; E66.01 Morbid (severe) obesity due to excess calories; R74.01 Elevation of levels of liver transaminase levels; R79.89 Other specified abnormal findings of blood chemistry; Z79.4 Long term (current) use of insulin; Z68.42 Body mass index [BMI] 45.0-49.9, adult
CPT/HCPCS: 36415; 71046; 80053; 82140; 82728; 82947; 82962; 83615; 84145; 85025; 85379; 86140; 87040; 93005; 96361; 96365; 96366; 96367; 96372; 96375; 96376; 99285; G0378; J0456; J0696; J1650; J2405; J7050; J8540; 85007